=== PATIENT | male | born 1945 | race Caucasian/White ===

== ENCOUNTER 2016-05-22 21:12 | Inpatient (IN) | payer MEDICARE, BC ==
[2016-05-22] MEDS ORDERED: KETAMINE HCL INJ 500 MG/10 ML VIAL ONE (21:24)
[2016-05-22] MEDS ORDERED: NORMAL SALINE 1000 ML 1,000 ML IV ONE ×2 (21:36→22:28)
[2016-05-22] MEDS ORDERED: ONDANSETRON HCL INJ/PF 4 MG/2 ML SDV IV ONE (21:37)
[2016-05-22 21:42] LABS: HEMATOCRIT 40.1 % (37.9-51.0); HEMOGLOBIN 13.3 g/dL (13.5-17.0); HGB HCT DIFFERENCE -0.2; MEAN CORPUSCULAR HEMOGLOBIN 27.6 pg (27.0-33.4); MEAN CORPUSCULAR HGB CONC 33.2 g/dL (32.0-36.0); MEAN CORPUSCULAR VOLUME 83 fl (80-97); RED BLOOD COUNT 4.82 10^6/uL (4.35-5.55); RED CELL DISTRIBUTION WIDTH 14.9 % (11.5-14.0)
--- NOTE | 2016-05-22 21:42 | ER Document Report ---
ED General - General Stated Complaint: UNCONSCIOUS Mode of Arrival: Medic Information source: Emergency Med Personnel Cannot obtain history due to: Unstable vital signs, Altered mental status Notes: Patient presents in severe respiratory distress, obtunded, normally responsive. He was found in a pool of vomitus supine in his bed just prior to arrival. No history can be obtained from the patient but EMS reports that the patient was last seen normal 2 hours prior to being found by his family. He does have history of multiple myeloma and is actively on chemotherapy. History is otherwise limited secondary to critical nature of this patient at time of arrival. TRAVEL OUTSIDE OF THE [place] IN LAST 30 DAYS: No - Related Data Allergies/Adverse Reactions: ciprofloxacin [From Cipro] Allergy (Severe, Verified 12/16/14 10:53) Urticaria levofloxacin [From Levaquin] Allergy (Severe, Verified 12/16/14 10:53) Hives Penicillins Allergy (Intermediate, Verified 12/16/14 10:46) Urticaria Home Medications: Current Home Medications Budesonide/Formoterol Fumarate [Symbicort HFA 160-4.5 mcg Inhaler 6 gm] 1 inh IN BID 05/23/16 [History] Dextroamphetamine/Amphetamine [Adderall 10 mg Tablet] 1 tab PO DAILY 05/23/16 [ History] Morphine Sulfate [Morphine Sulfate] 1 tab PO Q4 PRN 05/23/16 [History] Tamsulosin HCl [Flomax] 2 tab PO QHS 05/23/16 [History] Tiotropium [place] [Spiriva Handihaler 18 mcg/dose (30 Dose)] 1 inh IN DAILY 12/29 [History] Past Medical History - General Information source: Emergency Med Personnel Cannot obtain history due to: Unstable vital signs, Altered mental status - Social History Smoking Status: Former Smoker Frequency of alcohol use: None Drug Abuse: None Lives with: Family Family History: Reviewed & Not Pertinent - Past Medical History Cardiac Medical History: Reports: Hx Hypercholesterolemia Denies: Hx Coronary Artery Disease, Hx Heart Attack, Hx Hypertension Pulmonary Medical History: Reports: Hx Bronchitis, Hx COPD Denies: Hx Asthma, Hx Pneumonia Neurological Medical History: Denies: Hx Cerebrovascular Accident, Hx Seizures Malignancy Medical History: Reports Hx Bone Cancer - multiple myeloma GI Medical History: Denies: Hx Hepatitis, Hx Hiatal Hernia, Hx Ulcer Musculoskeltal Medical History: Denies Hx Arthritis Infectious Medical History: Denies: Hx Hepatitis Past Surgical History: Denies: Hx Open Heart Surgery, Hx Pacemaker - Immunizations Hx Diphtheria, Pertussis, Tetanus Vaccination: Yes Hx Pneumococcal Vaccination: 04/14/14 Review of Systems - Review of Systems -: Yes ROS unobtainable due to patient's medical condition Physical Exam - Vital signs Vitals: Temp Resp BP 102.7 F H 41 H 100/62 05/22/16 21:14 05/22/16 21:14 05/22/16 21:14 Interpretation: Tachycardic, Tachypneic, Febrile Notes: PHYSICAL EXAMINATION: GENERAL: Critically ill in appearance, in severe respiratory distress HEAD: Atraumatic, normocephalic. EYES: Pupils equal round and reactive to light, extraocular movements intact, sclera anicteric, conjunctiva are normal. ENT: nares patent, oropharynx clear without exudates. Severely dry mucous membranes. NECK: supple without lymphadenopathy LUNGS: Severe respiratory distress, poor air movement bilaterally. Tachypneic into the mid to upper 40s HEART: Irregular tachycardia without murmurs ABDOMEN: Soft, nontender, normoactive bowel sounds. No guarding, no rebound. No masses appreciated. EXTREMITIES: Normal range of motion, no pitting or edema. No cyanosis. NEUROLOGICAL: Face symmetric. Tongue protrudes midline. Extraocular motions intact. Pupils initially pinpoint, minimally reactive bilaterally. Normal speech. 5 out of 5 strength in both the distal and proximal upper and lower extremities bilaterally. Sensation is grossly intact throughout. PSYCH: Anxious, confused SKIN: Warm, Dry, normal turgor, no rashes or lesions noted. Course - Re-evaluation Re-evalutation: 05/22/16 21:39 Patient arrives in severe respiratory distress, altered, minimally responsive. Tachycardic, hypotensive, hypoxemic on a nonrebreather. Initial clinical assessment shows a obtunded patient with pinpoint pupils, not responding to commands in any extremity. 0.2 mg of Narcan was administered 2 and patient did then become much more responsive, awake, alert, following commands in all extremities. Patient remained in respiratory distress however with severe tachypnea and tachycardia. He was placed on BiPAP and given low-dose IV ketamine to assist with ventilation on the BiPAP. This did improve his relaxation work of breathing. I remained at the bedside for 20 minutes, continuously monitoring patient's breathing and watch a gradual improvement of his work of breathing, tachypnea, and oxygen saturations on the BiPAP. We were able to down titrate from initial FiO2 of 100% to 60% and maintaining oxygen saturations in the upper 90s. Patient does continue to remain tachycardic and mildly tachypneic but overall much improved from time of arrival. IV fluids are being administered. A full panel of labs has been drawn. A stat chest x- ray was obtained and did not demonstrate any evidence of significant pulmonary edema, pneumothorax or widened mediastinum. However, there is either an aspiration or possible pneumonia in the left lower lobe An EKG shows frequent PVCs but no ST elevations or depressions. Patient is critically ill at this time will require frequent reassessments. 05/22/16 21:45 Patient's heart rate is down trending at this point in the low 130s upper 120s. Work of breathing is much improved although patient remains tachypneic with respirations in upper 30s. Satting 98% on 50% FiO2. He does have a temperature to 102.3 which suggests that the possible infiltrate is a pneumonia in origin. Cultures have been drawn. Lactate has been sent. He will be empirically started on IV cefepime at this time 05/22/16 21:54 Trialed a small dose of IV fentanyl 50 g to see if this also allowed the patient to breathe more comfortably no response. He continues to be tachypneic into the 30s. However, his overall appearance, blood pressure, and oxygen saturation are much improved time of arrival. Venous blood gas is unremarkable. Lactate is normal at 1.5. Other labs are pending. Awaiting radiology read of chest x-ray. This point, I will continue to observe the patient for an additional 10-15 minutes to see if his work of breathing improves on BiPAP. If he remains in distress, will proceed with intubation. 05/22/16 22:30 I have updated the family and have brought him to the bedside. Patient's work of breathing much improved at this time respiratory rate in the mid 20s to low 30s. His FiO2 did require increased to 60% as the trial on 40% did result in some mild hypoxemia into the upper 80s. He is maintaining oxygen saturation between 93 and 94% on 60% FiO2. An additional dose of 15 mg of ketamine has been administered due to ongoing discomfort with the BiPAP mask. Lotrisone returned showing a leukocytosis, normal troponin, no significant electrolytes derangements. Chest x-ray by radiology read as no acute findings. Due to patient's fever, active chemotherapy, vancomycin has been added to his antibiotic regimen. 05/22/16 23:[address] scan without BiPAP on and did well for that short period of time but upon returning to the trauma bay was having ongoing increased work of breathing, his oxygen saturations began to trend downward, but he refused BiPAP placement. After a prolonged period of conversation with his and the patient the bedside he was agreeable to replacement of the BiPAP with a dose of IV morphine to help control his pain. Awaiting CT of the head. Will plan for admission at this time 05/23/16 00:11 Patient is clinically improved on BiPAP, vitals trending in the correct direction was heart rate coming down, respiratory rate 21 at this time. Saturating 97% on 60% FiO2. Mild hypotension with 90s on 60s. CT head unremarkable. The hospitalist has been contacted for admission and I'm awaiting a call back [phone]- patient's tachycardia has now completely resolved, his breathing has normalized. Clinically appears much improved. Still awaiting the hospitalist to contact me back for admission [phone]-continue to await the hospitalist to return my page for admission. Patient continues to be clinically improved at this time vitals have stabilized with exception of mild hypotension 05/23/16 03:44 I have discussed this case with the oncologist online content developer Dr. Alonso who is in agreement with the management plan at this point. Patient has now been removed off BiPAP given significant improved work of breathing. He has been transitioned to nasal cannula at this time. 05/23/16 04:27 I discussed this case with the hospitalist who is accepted for admission at this time. Patient remains much improved clinically, saturating 92% on 6 L by nasal cannula, no longer tachypneic respiratory rate is 24. Heart rate is now in upper 90s. Blood pressures has remained stable in the upper 80s to low 90s systolic - Vital Signs Vital signs: Temp Pulse Resp BP Pulse Ox 99.5 F 28 H 120/70 95 05/23/16 02:05 05/23/16 01:00 05/22/16 22:46 05/23/16 01:00 - Laboratory Result Diagrams: 05/22/16 21:18 05/22/16 21:18 Laboratory results interpreted by me: 05/22/16 05/22/16 21:18 21:18 WBC 13.0 H Hgb 13.3 L RDW 14.9 H Plt Count 118 L Seg Neuts % (Manual) 80 H Lymphocytes % (Manual) 7 L Abs Neuts (Manual) 11.1 H Potassium 3.2 L Creatinine 1.45 H Est GFR ( Amer) 58 L Est GFR (Non-Af Amer) 48 L Glucose 129 H - Diagnostic Test Radiology reviewed: Image reviewed, Reports reviewed Radiology results interpreted by me: 05/22/16 21:40 Chest x-ray: Mild pulmonary edema versus possible aspiration of the left lower lobe - EKG Interpretation by Me Additional EKG results interpreted by me: 05/23/16 03:35 Sinus tachycardia rate 152. No ST elevations or depressions. PVCs. QTC 428. Critical Care Note - Critical Care Note Total time excluding time spent on procedures (mins): 160 Comments: Critical care time spent obtaining history from patient or surrogate, discussions with consultants, development of treatment plan with patient or surrogate, evaluation of patient's response to treatment, examination of patient , ordering and performing treatments and interventions, ordering and review of laboratory studies, re-evaluation of patient's condition, ordering and review of radiographic studies and review of old charts Discharge - Discharge Clinical Impression: Respiratory distress Sepsis Qualifiers: Sepsis type: sepsis due to unspecified organism Qualified Code(s): A41.9 - Sepsis, unspecified organism Condition: Fair Disposition: ADMITTED INPATIENT Admitting Provider: [facility] Unit Admitted: ICU
[2016-05-22 21:45] LABS: VENOUS BLOOD HCO3 21.7 mmol/L (20-32); VENOUS BLOOD PCO2 42.2 mmHg (35-63); VENOUS BLOOD PH 7.33 (7.30-7.42)
[2016-05-22] MEDS ORDERED: CEFEPIME 2 GM/D5W RTU 50 ML IV ONE (21:46)
[2016-05-22] MEDS ORDERED: FENTANYL CITRATE INJ/PF 100 MCG/2 ML AMPUL ONE (21:51)
[2016-05-22 21:53] LABS: ALANINE AMINOTRANSFERASE 21 U/L (21-72); ALBUMIN 4.1 g/dL (3.5-5.0); ALKALINE PHOSPHATASE 66 U/L (38-126); ANION GAP 13 (5-19); ASPARTATE AMINO TRANSFERASE 22 U/L (17-59); BILIRUBIN,TOTAL 0.8 mg/dL (0.2-1.3); BLOOD UREA NITROGEN 16 mg/dL (7-20); CARBON DIOXIDE 23 mmol/L (22-30); CHLORIDE 105 mmol/L (98-107); CREATININE RESULT 1.45 mg/dL (0.52-1.25); GLUCOSE 129 mg/dL (75-110); POTASSIUM 3.2 mmol/L (3.6-5.0); SODIUM 140.8 mmol/L (137-145); TOTAL PROTEIN 6.7 g/dL (6.3-8.2)
[2016-05-22 21:57] LABS: BAND NEUTROPHILS % (MANUAL) 5 % (3-5); BASOPHILS % (MANUAL) 0 % (0-2); EOSINOPHILS % (MANUAL) 0 % (0-6); LYMPHOCYTES % (MANUAL) 7 % (13-45); TOTAL CELLS COUNTED 100
[2016-05-22 21:59] LABS: ANISOCYTOSIS SLIGHT; TOXIC GRANULATION SLIGHT
[2016-05-22 22:12] LABS: TROPONIN I < 0.012 ng/mL
[2016-05-22] MEDS ORDERED: VANCOMYCIN HCL INJ 1000 MG VIAL IV ONE (22:29)
[2016-05-22] MEDS ORDERED: CEFEPIME HCL 2 GM in DEXTROSE 5%-WATER 50 ML IV ONE (22:30)
[2016-05-22] MEDS ORDERED: MORPHINE SULFATE 10 MG/ML INJ IV PRN (23:27)
[2016-05-22] MEDS ORDERED: KETOROLAC TROMETHAMINE INJ/PF 30 MG/1 ML SDV IV ONE (23:51)
[2016-05-22] MEDS ORDERED: ACETAMINOPHEN 325 MG TABLET PO ONE (23:52)
[2016-05-22] MEDS ORDERED: ACETAMINOPHEN 325 MG TABLET ONE (23:54)
[2016-05-23 01:28] LABS: APPEARANCE,URINE CLEAR; BILIRUBIN,URINE NEGATIVE (NEGATIVE); GLUCOSE, URINE NEGATIVE (NEGATIVE); KETONES,URINE NEGATIVE (NEGATIVE); LEUKOCYTE ESTERASE,URINE NEGATIVE (NEGATIVE); NITRITE,URINE NEGATIVE (NEGATIVE); PROTEIN,URINE NEGATIVE (NEGATIVE); UROBILINOGEN,URINE NEGATIVE mg/dL (<2.0)
[2016-05-23] MEDS ORDERED: FENTANYL CITRATE INJ/PF 100 MCG/2 ML AMPUL ONE (03:40)
[2016-05-23] MEDS ORDERED: NALOXONE HCL INJ/PF 0.4 MG/1 ML SDV IV ONE (04:50)
[2016-05-23] MEDS ORDERED: KETAMINE HCL INJ 500 MG/10 ML VIAL IV ONE (04:50)
[2016-05-23] MEDS ORDERED: FENTANYL CITRATE INJ/PF 100 MCG/2 ML AMPUL IV ONE (04:50)
[2016-05-23] MEDS ORDERED: NORMAL SALINE 1000 ML 1,000 ML IV ONE (05:08)
[2016-05-23 06:01] LABS: ANION GAP 9 (5-19); BLOOD UREA NITROGEN 20 mg/dL (7-20); CALCIUM 7.4 mg/dL (8.4-10.2); CARBON DIOXIDE 20 mmol/L (22-30); CHLORIDE 110 mmol/L (98-107); CREATININE RESULT 1.47 mg/dL (0.52-1.25); GLUCOSE 130 mg/dL (75-110); POTASSIUM 3.4 mmol/L (3.6-5.0); SODIUM 139.4 mmol/L (137-145)
[2016-05-23] MEDS ORDERED: NOREPINEPHRINE BITARTRATE INJ/PF 4 MG/4 ML SDV IV ONE (06:16)
[2016-05-23 06:33] LABS: HEMATOCRIT 33.1 % (37.9-51.0); HGB HCT DIFFERENCE 0.5; MEAN CORPUSCULAR HEMOGLOBIN 28.1 pg (27.0-33.4); MEAN CORPUSCULAR HGB CONC 33.8 g/dL (32.0-36.0); MEAN CORPUSCULAR VOLUME 83 fl (80-97); RED BLOOD COUNT 3.99 10^6/uL (4.35-5.55); RED CELL DISTRIBUTION WIDTH 14.9 % (11.5-14.0); WHITE BLOOD COUNT 14.7 10^3/uL (4.0-10.5)
[2016-05-23 06:34] LABS: HEMOGLOBIN 11.2 g/dL (13.5-17.0)
[2016-05-23 06:37] LABS: BAND NEUTROPHILS % (MANUAL) 15 % (3-5); BASOPHILS % (MANUAL) 0 % (0-2); EOSINOPHILS % (MANUAL) 0 % (0-6); LYMPHOCYTES % (MANUAL) 10 % (13-45); TOTAL CELLS COUNTED 100
[2016-05-23 06:39] LABS: ANISOCYTOSIS SLIGHT; OVALOCYTES SLIGHT; TOXIC GRANULATION SLIGHT; TOXIC VACUOLATION PRESENT
[2016-05-23] MEDS ORDERED: NORMAL SALINE 1000 ML 1,000 ML IV PRN (07:34)
[2016-05-23] MEDS ORDERED: GUAIFENESIN SYRP 200 MG/10 ML UDC PO PRN (07:38)
[2016-05-23] MEDS ORDERED: ALBUTEROL SULFATE 0.083% NEB 2.5 MG/3 ML AMPUL NEB PRN (07:38)
[2016-05-23] MEDS ORDERED: PHARMACY COMMUNICATION ORDER MC NR (07:45)
[2016-05-23] MEDS ORDERED: CEFEPIME 2 GM/D5W RTU 50 ML IV SCH (07:45)
[2016-05-23] MEDS ORDERED: VANCOMYCIN HCL 0 MG in DEXTROSE 5%-WATER 250 ML IV NR (07:45)
[2016-05-23] MEDS ORDERED: POTASSI CL 20 MEQ/D5NS 1L 1,000 ML IV PRN (07:46)
--- NOTE | 2016-05-23 08:18 | EKG REPORT ---
SEVERITY:- ABNORMAL ECG - SUPRAVENTRICULAR TACHYCARDIA MULTIPLE PREMATURE COMPLEXES, SUPRAVEN LOW VOLTAGE IN FRONTAL LEADS BORDERLINE T ABNORMALITIES, ANTERIOR LEADS : Confirmed by: Oh Koo MD 23-May-2016 08:17:57
[2016-05-23] MEDS: POTASSI CL 20 MEQ/D5NS 1L 1,000 ML IV PRN ×3 (08:44→21:04)
[2016-05-23] MEDS: IPRATROPIUM/ALBUTEROL 0.5-2.5 MG/3 ML AMPUL NEB SCH ×3 (08:48→20:08)
[2016-05-23] MEDS ORDERED: POTASSI CL 20 MEQ/50 ML RIDER 20 MEQ/50 ML RTUPB IV ONE (09:00)
[2016-05-23] MEDS ORDERED: CEFEPIME 1 GM/D5W RTU 50 ML IV SCH (10:00)
[2016-05-23] MEDS ORDERED: DEXTROSE 5%-WATER 250 ML with NOREPINEPHRINE BITARTRATE 4 MG IV PRN ×2 (10:00)
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
[2016-05-23] MEDS: PREDNISONE 20 MG TABLET PO SCH (10:37)
[2016-05-23 13:08] LABS: PATH REVIEW PATHOLOGIST REVIEWED
--- NOTE | 2016-05-23 14:47 | PDOC PROGRESS REPORT ---
Subjective Progress Note for:: 05/23/16 Subjective:: Patient states that he is feeling "fine". He would like something to eat. Patient denies fever, chills, headache, new focal weakness, chest pain, shortness of breath, abdominal pain, nausea, vomiting, diarrhea, constipation. Physical Exam Vital Signs: Temp Pulse Resp BP Pulse Ox 99.5 F 97 23 H 87/58 L 99 05/23/16 02:05 05/23/16 13:10 05/23/16 13:10 05/23/16 09:01 05/23/16 13:10 GENERAL: No acute distress HEENT: Conjunctiva clear, nonicteric, moist mucous membranes, no JVD, midline trachea RESPIRATORY: Scattered bilateral rhonchi CARDIAC: Regular rate and rhythm, no murmurs/gallops/rubs ABDOMEN: Soft, nondistended, nontender, positive bowel sounds, no rebound, no guarding EXTREMETIES: No edema, cyanosis, clubbing NEUROLOGIC: Alert, oriented to person/place/time, CN's grossly intact, no focal deficits SKIN: No rash, wounds PSYCH: Normal mood, normal affect Results Impressions: Chest X-Ray 05/22/16 00:00 IMPRESSION: NO ACUTE RADIOGRAPHIC FINDING IN THE CHEST. Head CT 05/22/16 22:50 IMPRESSION: MILD CHRONIC CHANGES OF ATROPHY AND MICROVASCULAR ISCHEMIA. NO ACUTE PROCESS. Assessment & Plan - Diagnosis (1) Acute hypoxemic respiratory failure Is this a current diagnosis for this admission?: YesPlan: Likely secondary to COPD, CHF, pneumonia. Continue oxygen supplementation to maintain O2 sat greater than 93%. (2) Sepsis Qualifiers: Sepsis type: sepsis due to unspecified organism Qualified Code(s): A41.9 - Sepsis, unspecified organism Is this a current diagnosis for this admission?: YesPlan: Secondary to pneumonia. Treat pneumonia. Continue Levophed to maintain mean arterial pressure greater than 65. (3) Pneumonia Qualifiers: Pneumonia type: due to unspecified organism Laterality: left Lung location: unspecified part of lung Qualified Code(s): J18.9 - Pneumonia, unspecified organism Is this a current diagnosis for this admission?: YesPlan: Likely bacterial. High probability of gram-negative organism given antineoplastic treatment. Continue IV cefepime and IV vancomycin. (4) Acute kidney injury Is this a current diagnosis for this admission?: YesPlan: Treat infection. Treat shock. IV fluids. (5) COPD exacerbation Is this a current diagnosis for this admission?: YesPlan: Continue prednisone. Continue Symbicort, Spiriva, albuterol nebulizer treatments. (6) Hypokalemia Is this a current diagnosis for this admission?: YesPlan: Replace as needed. (7) Thrombocytopenia Is this a current diagnosis for this admission?: YesPlan: Likely secondary to sepsis. Avoid heparin. (8) Multiple myeloma Qualifiers: Multiple myeloma remission status: unspecified Qualified Code(s): C90.00 - Multiple myeloma not having achieved remission Is this a current diagnosis for this admission?: YesPlan: Followed by Dr. Cotton as an outpatient. Dr. Mensah consult. (9) On antineoplastic chemotherapy Is this a current diagnosis for this admission?: Yes (10) Diastolic CHF Qualifiers: Congestive heart failure chronicity: chronic Qualified Code(s): I50.32 - Chronic diastolic (congestive) heart failure Is this a current diagnosis for this admission?: YesPlan: Monitor closely with IV fluid resuscitation. Repeat chest x-ray in the morning. Patient is not on evidence based beta maxi as an outpatient and I will not start this now secondary to shock. (11) DVT prophylaxis Is this a current diagnosis for this admission?: YesPlan: Avoid heparin secondary to thrombocytopenia. Arixtra 2.5 g subcutaneous daily. - Time Critical Time spent with patient: 35 or more minutes Disposition: Patient was followed by Dr. Bland as an outpatient but is now being seen by Dr. Mcdowell which over the past couple outpatient visit.
[2016-05-23] MEDS: MORPHINE SULFATE IR 15 MG TABLET PO PRN (18:01)
[2016-05-23] MEDS: LANSOPRAZOLE 30 MG TAB.RAP.DR PO SCH (18:02)
[2016-05-23] MEDS: ACETAMINOPHEN 325 MG TABLET PO PRN (20:34)
[2016-05-23] MEDS: BUDESONIDE/FORMOTEROL 160-4.5 MCG 60 PUFF/6 GM MDI IH SCH (21:09)
[2016-05-23] MEDS: TAMSULOSIN HCL 0.4 MG CAP.SR.24H PO SCH (21:12)
[2016-05-23] MEDS ORDERED: CEFEPIME HCL 2 GM in DEXTROSE 5%-WATER 50 ML IV SCH (22:00)
[2016-05-23] MEDS ORDERED: PHARMACY COMMUNICATION ORDER MC SCH (22:45)
[2016-05-23] MEDS ORDERED: AZTREONAM INJ 1 GM VIAL IV SCH (22:45)
[2016-05-23] MEDS ORDERED: GENTAMICIN SULFATE 0 MG in DEXTROSE 5%-WATER 100 ML IV NR (22:45)
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
[2016-05-24] MEDS ORDERED: GENTAMICIN SULFATE INJ 80 MG/2 ML VIAL ONE (00:33)
[2016-05-24] MEDS ORDERED: AZTREONAM INJ 1 GM VIAL ONE ×2 (00:47→00:57)
[2016-05-24] MEDS ORDERED: AZTREONAM INJ 1 GM VIAL IV PRN (02:04)
[2016-05-24 04:23] LABS: ALANINE AMINOTRANSFERASE 30 U/L (21-72); ALBUMIN 2.6 g/dL (3.5-5.0); ALKALINE PHOSPHATASE 39 U/L (38-126); ANION GAP 9 (5-19); ASPARTATE AMINO TRANSFERASE 17 U/L (17-59); BILIRUBIN,TOTAL 0.5 mg/dL (0.2-1.3); BLOOD UREA NITROGEN 19 mg/dL (7-20); CALCIUM 7.4 mg/dL (8.4-10.2); CARBON DIOXIDE 18 mmol/L (22-30); CHLORIDE 114 mmol/L (98-107); CREATININE RESULT 1.13 mg/dL (0.52-1.25); GLUCOSE 180 mg/dL (75-110); MAGNESIUM 1.8 mg/dL (1.6-2.3); SODIUM 141.4 mmol/L (137-145); TOTAL PROTEIN 4.9 g/dL (6.3-8.2)
[2016-05-24 04:39] LABS: HEMATOCRIT 30.6 % (37.9-51.0); HEMOGLOBIN 10.1 g/dL (13.5-17.0); HGB HCT DIFFERENCE -0.3; MEAN CORPUSCULAR HEMOGLOBIN 27.7 pg (27.0-33.4); MEAN CORPUSCULAR HGB CONC 32.9 g/dL (32.0-36.0); MEAN CORPUSCULAR VOLUME 84 fl (80-97); RED BLOOD COUNT 3.63 10^6/uL (4.35-5.55); RED CELL DISTRIBUTION WIDTH 15.6 % (11.5-14.0); WHITE BLOOD COUNT 21.1 10^3/uL (4.0-10.5)
[2016-05-24 04:50] LABS: POTASSIUM 4.5 mmol/L (3.6-5.0)
[2016-05-24 04:59] LABS: BAND NEUTROPHILS % (MANUAL) 21 % (3-5); BASOPHILS % (MANUAL) 0 % (0-2); EOSINOPHILS % (MANUAL) 0 % (0-6); LYMPHOCYTES % (MANUAL) 4 % (13-45); TOTAL CELLS COUNTED 100
[2016-05-24 05:01] LABS: ANISOCYTOSIS SLIGHT; BURR CELLS SLIGHT; TOXIC GRANULATION SLIGHT; TOXIC VACUOLATION PRESENT
[2016-05-24] MEDS: LANSOPRAZOLE 30 MG TAB.RAP.DR PO SCH ×2 (05:57→18:01)
[2016-05-24] MEDS: POTASSI CL 20 MEQ/D5NS 1L 1,000 ML IV PRN ×2 (06:22→09:43)
[2016-05-24] MEDS: VANCOMYCIN HCL 1,250 MG in DEXTROSE 5%-WATER 250 ML IV SCH (06:28)
[2016-05-24] MEDS ORDERED: FONDAPARINUX SODIUM INJ 2.5 MG/0.5 ML DISP.SYRIN SUBCUT SCH (08:00)
[2016-05-24] MEDS ORDERED: AZTREONAM 1 GM in DEXTROSE 5%-WATER 50 ML IV ONE (08:30)
[2016-05-24] MEDS: IPRATROPIUM/ALBUTEROL 0.5-2.5 MG/3 ML AMPUL NEB SCH ×3 (09:27→20:01)
[2016-05-24] MEDS: ASPIRIN 325 MG TABLET PO SCH (09:41)
[2016-05-24] MEDS: PREDNISONE 20 MG TABLET PO SCH (09:42)
[2016-05-24] MEDS: ACETAMINOPHEN 325 MG TABLET PO PRN ×2 (09:43→18:02)
[2016-05-24] MEDS ORDERED: AZTREONAM 2 GM in DEXTROSE 5%-WATER 100 ML IV SCH (10:00)
[2016-05-24] MEDS ORDERED: ONDANSETRON HCL INJ/PF 4 MG/2 ML SDV IV PRN (10:07)
[2016-05-24] MEDS ORDERED: ONDANSETRON HCL INJ/PF 4 MG/2 ML SDV ONE (10:09)
[2016-05-24] MEDS: FENTANYL 100 MCG/HR PATCH.TD72 TD SCH (10:31)
[2016-05-24] MEDS: AZITHROMYCIN 500 MG in DEXTROSE 5%-WATER 250 ML IV SCH (11:40)
--- NOTE | 2016-05-24 11:55 | PDOC PROGRESS REPORT ---
Subjective Progress Note for:: 05/24/16 Subjective:: Patient has no new complaints. Patient denies fever, chills, headache, new focal weakness, chest pain, shortness of breath, abdominal pain, nausea, vomiting, diarrhea, constipation. Physical Exam Vital Signs: Temp Pulse Resp BP Pulse Ox 98.0 F 93 20 102/68 94 05/24/16 08:00 05/24/16 09:30 05/24/16 09:30 05/24/16 08:00 05/24/16 09:30 Intake & Output 05/23/16 05/24/16 05/25/16 06:59 06:59 06:59 Output Total 2900 Balance -2900 Weight 96.6 kg GENERAL: No acute distress HEENT: Conjunctiva clear, nonicteric, moist mucous membranes, no JVD, midline trachea RESPIRATORY: Clear to auscultation bilaterally, no wheezes, no rhonchi CARDIAC: Regular rate and rhythm, no murmurs/gallops/rubs ABDOMEN: Soft, nondistended, nontender, positive bowel sounds, no rebound, no guarding EXTREMETIES: No edema, cyanosis, clubbing NEUROLOGIC: Alert, oriented to person/place/time, CN's grossly intact, no focal deficits SKIN: No rash, wounds PSYCH: Normal mood, normal affect Results Laboratory Results: 05/24/16 03:28 05/24/16 03:28 05/24/16 05/24/16 03:28 03:28 WBC 21.1 H RBC 3.63 L Hgb 10.1 L Hct 30.6 L MCV 84 MCH 27.7 MCHC 32.9 RDW 15.6 H Plt Count 77 L Seg Neutrophils % Not Reportable Lymphocytes % Not Reportable Monocytes % Not Reportable Eosinophils % Not Reportable Basophils % Not Reportable Absolute Neutrophils Not Reportable Absolute Lymphocytes Not Reportable Absolute Monocytes Not Reportable Absolute Eosinophils Not Reportable Absolute Basophils Not Reportable Sodium 141.4 Potassium 4.5 D Chloride 114 H Carbon Dioxide 18 L Anion Gap 9 BUN 19 Creatinine 1.13 Est GFR ( Amer) > 60 Est GFR (Non-Af Amer) > 60 Glucose 180 H Calcium 7.4 L Magnesium 1.8 Total Bilirubin 0.5 AST 17 ALT 30 Alkaline Phosphatase 39 Total Protein 4.9 L Albumin 2.6 L Impressions: Head CT 05/22/16 22:50 IMPRESSION: MILD CHRONIC CHANGES OF ATROPHY AND MICROVASCULAR ISCHEMIA. NO ACUTE PROCESS. Chest X-Ray 05/24/16 07:00 IMPRESSION: No significant interval change. No acute changes. Other findings as noted above Assessment & Plan - Diagnosis (1) Acute hypoxemic respiratory failure Is this a current diagnosis for this admission?: YesPlan: Likely secondary to COPD, CHF, pneumonia. Continue oxygen supplementation to maintain O2 sat greater than 93%. (2) Sepsis Qualifiers: Sepsis type: sepsis due to unspecified organism Qualified Code(s): A41.9 - Sepsis, unspecified organism Is this a current diagnosis for this admission?: YesPlan: Secondary to pneumonia. Treat pneumonia. Blood pressure now stable off Levophed. (3) Pneumonia Qualifiers: Pneumonia type: due to unspecified organism Laterality: left Lung location: unspecified part of lung Qualified Code(s): J18.9 - Pneumonia, unspecified organism Is this a current diagnosis for this admission?: YesPlan: Likely bacterial. High probability of gram-negative organism given antineoplastic treatment. Secondary to penicillin allergy cefepime was discontinued. Patient is on IV aztreonam, IV vancomycin, IV azithromycin. Blood cultures and sputum culture showing no growth 24 hours. (4) Acute kidney injury Is this a current diagnosis for this admission?: YesPlan: Kidney function much improved. (5) COPD exacerbation Is this a current diagnosis for this admission?: YesPlan: Breath sounds are clear today. Decrease prednisone to 40 mg daily. Continue Symbicort, Spiriva, albuterol nebulizer treatments. (6) Hypokalemia Is this a current diagnosis for this admission?: YesPlan: Corrected. (7) Thrombocytopenia Is this a current diagnosis for this admission?: YesPlan: Likely secondary to sepsis. Avoid heparin. (8) Multiple myeloma Qualifiers: Multiple myeloma remission status: unspecified Qualified Code(s): C90.00 - Multiple myeloma not having achieved remission Is this a current diagnosis for this admission?: YesPlan: Dr. Cotton consulted. (9) On antineoplastic chemotherapy Is this a current diagnosis for this admission?: Yes (10) Diastolic CHF Qualifiers: Congestive heart failure chronicity: chronic Qualified Code(s): I50.32 - Chronic diastolic (congestive) heart failure Is this a current diagnosis for this admission?: YesPlan: Monitor closely with IV fluid resuscitation. Clinically compensated at this time. Patient is not on evidence based beta maxi as an outpatient and I will not start this now secondary to shock. (11) DVT prophylaxis Is this a current diagnosis for this admission?: YesPlan: Avoid heparin secondary to thrombocytopenia. Discontinued Arixtra secondary to worsening thrombocytopenia. Place SCDs. - Time Time Spent with patient: 35 or more minutes
[2016-05-24] MEDS: BUDESONIDE/FORMOTEROL 160-4.5 MCG 60 PUFF/6 GM MDI IH SCH ×2 (12:33→22:29)
[2016-05-24] MEDS: TIOTROPIUM BROMIDE DPI 5 CAP/KIT (18 MCG/CAP) IH SCH (12:33)
[2016-05-24] MEDS: AZTREONAM 1 GM in DEXTROSE 5%-WATER 50 ML IV SCH ×2 (14:57→22:27)
[2016-05-24] MEDS ORDERED: NORMAL SALINE 10 ML SDV (AFTER EACH USE) IV PRN (15:11)
--- NOTE | 2016-05-24 17:09 | PDOC PROGRESS REPORT ---
Subjective Progress Note for:: 05/24/16 Subjective:: States that he's not feeling as well although can't be specific. Not much appetite. Physical Exam Vital Signs: Temp Pulse Resp BP Pulse Ox 98.7 F 91 17 86/57 L 96 05/24/16 16:47 05/24/16 16:47 05/24/16 16:47 05/24/16 16:47 05/24/16 16:47 Intake & Output 05/23/16 05/24/16 05/25/16 06:59 06:59 06:59 Intake Total 250 Output Total 2900 640 Balance -2900 -390 Weight 96.6 kg General appearance: PRESENT: no acute distress Head exam: PRESENT: normocephalic Eye exam: PRESENT: EOMI, PERRLA Ear exam: PRESENT: normal external ear exam Mouth exam: PRESENT: tongue midline Teeth exam: PRESENT: edentulous, other - with dentures Respiratory exam: PRESENT: decreased breath sounds - at the bases, unlabored Cardiovascular exam: PRESENT: RRR GI/Abdominal exam: PRESENT: normal bowel sounds, soft Extremities exam: PRESENT: other - slight edema in the left hand but none in the lower extremities Neurological exam: PRESENT: awake, oriented to person, oriented to place, oriented to time, oriented to situation, CN II-XII grossly intact Results Laboratory Results: 05/24/16 03:28 05/24/16 03:28 05/24/16 05/24/16 03:28 03:28 WBC 21.1 H RBC 3.63 L Hgb 10.1 L Hct 30.6 L MCV 84 MCH 27.7 MCHC 32.9 RDW 15.6 H Plt Count 77 L Seg Neutrophils % Not Reportable Lymphocytes % Not Reportable Monocytes % Not Reportable Eosinophils % Not Reportable Basophils % Not Reportable Absolute Neutrophils Not Reportable Absolute Lymphocytes Not Reportable Absolute Monocytes Not Reportable Absolute Eosinophils Not Reportable Absolute Basophils Not Reportable Sodium 141.4 Potassium 4.5 D Chloride 114 H Carbon Dioxide 18 L Anion Gap 9 BUN 19 Creatinine 1.13 Est GFR ( Amer) > 60 Est GFR (Non-Af Amer) > 60 Glucose 180 H Calcium 7.4 L Magnesium 1.8 Total Bilirubin 0.5 AST 17 ALT 30 Alkaline Phosphatase 39 Total Protein 4.9 L Albumin 2.6 L Impressions: Head CT 05/22/16 22:50 IMPRESSION: MILD CHRONIC CHANGES OF ATROPHY AND MICROVASCULAR ISCHEMIA. NO ACUTE PROCESS. Guidance Fluoroscopy 05/24/16 00:00 IMPRESSION: SUCCESSFUL PLACEMENT OF A 5 FR DUAL LUMEN 43 CM PICC IN THE left basilic VEIN. Interventional Vascular Procedure 05/24/16 00:00 IMPRESSION: SUCCESSFUL PLACEMENT OF A 5 FR DUAL LUMEN 43 CM PICC IN THE left basilic VEIN. PICC Line Insertion 05/24/16 00:00 IMPRESSION: SUCCESSFUL PLACEMENT OF A 5 FR DUAL LUMEN 43 CM PICC IN THE left basilic VEIN. Chest X-Ray 05/24/16 07:00 IMPRESSION: No significant interval change. No acute changes. Other findings as noted above Assessment & Plan - Diagnosis (1) COPD exacerbation Is this a current diagnosis for this admission?: YesPlan: Continue BSA for possible aspiration and pulmonary toilet, O2, nebs. (2) Multiple myeloma Qualifiers: Multiple myeloma remission status: unspecified Qualified Code(s): C90.00 - Multiple myeloma not having achieved remission Is this a current diagnosis for this admission?: Yes (3) On antineoplastic chemotherapy Is this a current diagnosis for this admission?: YesPlan: White counts are sufficient and in fact elevated likely secondary to his Prednisone (4) Thrombocytopenia Is this a current diagnosis for this admission?: YesPlan: Likely related to acute situation although possibility exist that from chemo - Time Time Spent with patient: 35 or more minutes Critical Time spent with patient: 25-34 minutes Medications reviewed and adjusted accordingly: Yes
[2016-05-24] MEDS: NORMAL SALINE 10 ML SDV (SCHEDULED) IV SCH (22:06)
[2016-05-24] MEDS: TAMSULOSIN HCL 0.4 MG CAP.SR.24H PO SCH (22:28)
[2016-05-25 05:43] LABS: HEMATOCRIT 30.2 % (37.9-51.0); HGB HCT DIFFERENCE -0.2; MEAN CORPUSCULAR HGB CONC 33.2 g/dL (32.0-36.0); MEAN CORPUSCULAR VOLUME 84 fl (80-97); RED BLOOD COUNT 3.58 10^6/uL (4.35-5.55); RED CELL DISTRIBUTION WIDTH 15.8 % (11.5-14.0); WHITE BLOOD COUNT 22.7 10^3/uL (4.0-10.5)
[2016-05-25 05:54] LABS: ALANINE AMINOTRANSFERASE 32 U/L (21-72); ALBUMIN 2.8 g/dL (3.5-5.0); ALKALINE PHOSPHATASE 54 U/L (38-126); ANION GAP 7 (5-19); ASPARTATE AMINO TRANSFERASE 20 U/L (17-59); BILIRUBIN,TOTAL 0.5 mg/dL (0.2-1.3); BLOOD UREA NITROGEN 20 mg/dL (7-20); CALCIUM 7.8 mg/dL (8.4-10.2); CARBON DIOXIDE 20 mmol/L (22-30); CHLORIDE 114 mmol/L (98-107); CREATININE RESULT 1.13 mg/dL (0.52-1.25); GLUCOSE 100 mg/dL (75-110); POTASSIUM 4.5 mmol/L (3.6-5.0); SODIUM 141.1 mmol/L (137-145); TOTAL PROTEIN 5.3 g/dL (6.3-8.2)
[2016-05-25 05:55] LABS: BASOPHILS % (MANUAL) 0 % (0-2); EOSINOPHILS % (MANUAL) 0 % (0-6); LYMPHOCYTES % (MANUAL) 3 % (13-45); TOTAL CELLS COUNTED 100
[2016-05-25 05:59] LABS: ANISOCYTOSIS SLIGHT; BURR CELLS SLIGHT; TOXIC GRANULATION SLIGHT
[2016-05-25] MEDS: AZTREONAM 1 GM in DEXTROSE 5%-WATER 50 ML IV SCH ×3 (06:06→21:07)
[2016-05-25] MEDS: VANCOMYCIN HCL 1,250 MG in DEXTROSE 5%-WATER 250 ML IV SCH (06:06)
[2016-05-25] MEDS: LANSOPRAZOLE 30 MG TAB.RAP.DR PO SCH ×2 (06:06→16:56)
[2016-05-25 07:02] LABS: FOLATE 9.32 ng/mL (>2.76)
[2016-05-25] MEDS: IPRATROPIUM/ALBUTEROL 0.5-2.5 MG/3 ML AMPUL NEB SCH ×3 (09:02→20:50)
--- NOTE | 2016-05-25 09:06 | PDOC PROGRESS REPORT ---
Subjective Progress Note for:: 05/25/16 Subjective:: Patient has no new complaints. Patient denies fever, chills, headache, new focal weakness, chest pain, shortness of breath, abdominal pain, nausea, vomiting, diarrhea, constipation. Physical Exam Vital Signs: Temp Pulse Resp BP Pulse Ox 97.9 F 73 14 111/71 94 05/25/16 05:56 05/24/16 20:01 05/25/16 06:00 05/25/16 05:37 05/25/16 06:00 Intake & Output 05/24/16 05/25/16 05/26/16 06:59 06:59 06:59 Intake Total 3425 Output Total 2900 2140 Balance -2900 1285 Weight 96.6 kg 94.2 kg GENERAL: No acute distress HEENT: Conjunctiva clear, nonicteric, moist mucous membranes, no JVD, midline trachea RESPIRATORY: Clear to auscultation bilaterally, no wheezes, no rhonchi CARDIAC: Regular rate and rhythm, no murmurs/gallops/rubs ABDOMEN: Soft, nondistended, nontender, positive bowel sounds, no rebound, no guarding EXTREMETIES: No edema, cyanosis, clubbing NEUROLOGIC: Alert, oriented to person/place/time, CN's grossly intact, no focal deficits SKIN: No rash, wounds PSYCH: Normal mood, normal affect Results Laboratory Results: 05/25/16 05:20 05/25/16 05:20 05/25/16 05/25/16 05:20 05:20 WBC 22.7 H RBC 3.58 L Hgb 10.0 L Hct 30.2 L MCV 84 MCH 28.0 MCHC 33.2 RDW 15.8 H Plt Count 97 L Seg Neutrophils % Not Reportable Lymphocytes % Not Reportable Monocytes % Not Reportable Eosinophils % Not Reportable Basophils % Not Reportable Absolute Neutrophils Not Reportable Absolute Lymphocytes Not Reportable Absolute Monocytes Not Reportable Absolute Eosinophils Not Reportable Absolute Basophils Not Reportable Retic Count (auto) 1.00 Absolute Retic 0.036 Sodium 141.1 Potassium 4.5 Chloride 114 H Carbon Dioxide 20 L Anion Gap 7 BUN 20 Creatinine 1.13 Est GFR ( Amer) > 60 Est GFR (Non-Af Amer) > 60 Glucose 100 Calcium 7.8 L Magnesium 2.0 Iron 15 L TIBC 217 L % Saturation 7 Ferritin 390.00 Total Bilirubin 0.5 AST 20 ALT 32 Alkaline Phosphatase 54 Total Protein 5.3 L Albumin 2.8 L Vitamin B12 848.0 Folate 9.32 Impressions: Head CT 05/22/16 22:50 IMPRESSION: MILD CHRONIC CHANGES OF ATROPHY AND MICROVASCULAR ISCHEMIA. NO ACUTE PROCESS. Guidance Fluoroscopy 05/24/16 00:00 IMPRESSION: SUCCESSFUL PLACEMENT OF A 5 FR DUAL LUMEN 43 CM PICC IN THE left basilic VEIN. Interventional Vascular Procedure 05/24/16 00:00 IMPRESSION: SUCCESSFUL PLACEMENT OF A 5 FR DUAL LUMEN 43 CM PICC IN THE left basilic VEIN. PICC Line Insertion 05/24/16 00:00 IMPRESSION: SUCCESSFUL PLACEMENT OF A 5 FR DUAL LUMEN 43 CM PICC IN THE left basilic VEIN. Chest X-Ray 05/24/16 07:00 IMPRESSION: No significant interval change. No acute changes. Other findings as noted above Assessment & Plan - Diagnosis (1) Acute hypoxemic respiratory failure Is this a current diagnosis for this admission?: YesPlan: Likely secondary to COPD, CHF, pneumonia. Continue oxygen supplementation to maintain O2 sat greater than 93%. (2) Sepsis Qualifiers: Sepsis type: sepsis due to unspecified organism Qualified Code(s): A41.9 - Sepsis, unspecified organism Is this a current diagnosis for this admission?: YesPlan: Secondary to pneumonia. Treat pneumonia. Blood pressure now stable off Levophed. Afebrile. Leukocytosis likely secondary to corticosteroids. (3) Pneumonia Qualifiers: Pneumonia type: due to unspecified organism Laterality: left Lung location: unspecified part of lung Qualified Code(s): J18.9 - Pneumonia, unspecified organism Is this a current diagnosis for this admission?: YesPlan: Likely bacterial. High probability of gram-negative organism given antineoplastic treatment. Continue IV aztreonam, IV vancomycin, IV azithromycin. Blood cultures and sputum culture showing no growth 48hours. (4) Acute kidney injury Is this a current diagnosis for this admission?: YesPlan: Resolved (5) COPD exacerbation Is this a current diagnosis for this admission?: YesPlan: Breath sounds are clear today. Discontinue prednisone. Continue Symbicort, Spiriva, albuterol nebulizer treatments. (6) Hypokalemia Is this a current diagnosis for this admission?: YesPlan: Resolved. (7) Thrombocytopenia Is this a current diagnosis for this admission?: YesPlan: Likely secondary to sepsis. Avoid heparin. (8) Multiple myeloma Qualifiers: Multiple myeloma remission status: unspecified Qualified Code(s): C90.00 - Multiple myeloma not having achieved remission Is this a current diagnosis for this admission?: YesPlan: Dr. Cotton consulted. (9) On antineoplastic chemotherapy Is this a current diagnosis for this admission?: Yes (10) Diastolic CHF Qualifiers: Congestive heart failure chronicity: chronic Qualified Code(s): I50.32 - Chronic diastolic (congestive) heart failure Is this a current diagnosis for this admission?: YesPlan: Clinically compensated at this time. Patient is not on evidence based beta maxi as an outpatient and I will not start this now secondary to shock. (11) DVT prophylaxis Is this a current diagnosis for this admission?: YesPlan: Avoid heparin secondary to thrombocytopenia. Discontinued Arixtra secondary to worsening thrombocytopenia. Place SCDs. Start ambulating patient. - Time Time Spent with patient: 35 or more minutes Anticipated discharge: Home Within: within 72 hours
[2016-05-25] MEDS: TIOTROPIUM BROMIDE DPI 5 CAP/KIT (18 MCG/CAP) IH SCH (09:49)
[2016-05-25] MEDS: ASPIRIN 325 MG TABLET PO SCH (09:49)
[2016-05-25] MEDS: AZITHROMYCIN 500 MG in DEXTROSE 5%-WATER 250 ML IV SCH (09:50)
[2016-05-25] MEDS: NORMAL SALINE 10 ML SDV (SCHEDULED) IV SCH ×2 (09:51→21:04)
[2016-05-25] MEDS: BUDESONIDE/FORMOTEROL 160-4.5 MCG 60 PUFF/6 GM MDI IH SCH ×2 (09:55→21:07)
[2016-05-25] MEDS ORDERED: PREDNISONE 20 MG TABLET PO SCH ×2 (10:00)
--- NOTE | 2016-05-25 10:15 | PDOC PROGRESS REPORT ---
Subjective Progress Note for:: 05/25/16 Subjective:: Doing much better today, better energy and off of pressors Physical Exam Vital Signs: Temp Pulse Resp BP Pulse Ox 97.9 F 74 21 H 115/74 92 05/25/16 05:56 05/25/16 08:00 05/25/16 09:00 05/25/16 08:37 05/25/16 09:00 Intake & Output 05/24/16 05/25/16 05/26/16 06:59 06:59 06:59 Intake Total 3425 250 Output Total 2900 2140 Balance -2900 1285 250 Weight 96.6 kg 94.2 kg General appearance: PRESENT: no acute distress Head exam: PRESENT: atraumatic, normocephalic Eye exam: PRESENT: EOMI, PERRLA Ear exam: PRESENT: normal external ear exam Mouth exam: PRESENT: moist, neck supple, tongue midline Respiratory exam: PRESENT: clear to auscultation lexie Cardiovascular exam: PRESENT: RRR GI/Abdominal exam: PRESENT: normal bowel sounds, soft Extremities exam: PRESENT: other - Edema resolved Neurological exam: PRESENT: alert, oriented to person, oriented to place, oriented to time, oriented to situation, CN II-XII grossly intact Psychiatric exam: PRESENT: appropriate affect Results Laboratory Results: 05/25/16 05:20 05/25/16 05:20 05/25/16 05/25/16 05:20 05:20 WBC 22.7 H RBC 3.58 L Hgb 10.0 L Hct 30.2 L MCV 84 MCH 28.0 MCHC 33.2 RDW 15.8 H Plt Count 97 L Seg Neutrophils % Not Reportable Lymphocytes % Not Reportable Monocytes % Not Reportable Eosinophils % Not Reportable Basophils % Not Reportable Absolute Neutrophils Not Reportable Absolute Lymphocytes Not Reportable Absolute Monocytes Not Reportable Absolute Eosinophils Not Reportable Absolute Basophils Not Reportable Retic Count (auto) 1.00 Absolute Retic 0.036 Sodium 141.1 Potassium 4.5 Chloride 114 H Carbon Dioxide 20 L Anion Gap 7 BUN 20 Creatinine 1.13 Est GFR ( Amer) > 60 Est GFR (Non-Af Amer) > 60 Glucose 100 Calcium 7.8 L Magnesium 2.0 Iron 15 L TIBC 217 L % Saturation 7 Ferritin 390.00 Total Bilirubin 0.5 AST 20 ALT 32 Alkaline Phosphatase 54 Total Protein 5.3 L Albumin 2.8 L Vitamin B12 848.0 Folate 9.32 Impressions: Head CT 05/22/16 22:50 IMPRESSION: MILD CHRONIC CHANGES OF ATROPHY AND MICROVASCULAR ISCHEMIA. NO ACUTE PROCESS. Guidance Fluoroscopy 05/24/16 00:00 IMPRESSION: SUCCESSFUL PLACEMENT OF A 5 FR DUAL LUMEN 43 CM PICC IN THE left basilic VEIN. Interventional Vascular Procedure 05/24/16 00:00 IMPRESSION: SUCCESSFUL PLACEMENT OF A 5 FR DUAL LUMEN 43 CM PICC IN THE left basilic VEIN. PICC Line Insertion 05/24/16 00:00 IMPRESSION: SUCCESSFUL PLACEMENT OF A 5 FR DUAL LUMEN 43 CM PICC IN THE left basilic VEIN. Chest X-Ray 05/24/16 07:00 IMPRESSION: No significant interval change. No acute changes. Other findings as noted above Assessment & Plan - Diagnosis (1) COPD exacerbation Is this a current diagnosis for this admission?: YesPlan: Improved on current regimen (2) Multiple myeloma Qualifiers: Multiple myeloma remission status: unspecified Qualified Code(s): C90.00 - Multiple myeloma not having achieved remission Is this a current diagnosis for this admission?: YesPlan: Rsume treatment once stable as an outpatient (3) On antineoplastic chemotherapy Is this a current diagnosis for this admission?: Yes (4) Thrombocytopenia Is this a current diagnosis for this admission?: YesPlan: Resolving with Leukocytosis secondary to steroids likely - Time Time Spent with patient: 15-24 minutes Critical Time spent with patient: 15-24 minutes Medications reviewed and adjusted accordingly: Yes Anticipated discharge: Home Within: within 72 hours - Inpatient Certification Medical Necessity: Need for IV Antibiotics
[2016-05-25] MEDS: TAMSULOSIN HCL 0.4 MG CAP.SR.24H PO SCH (21:05)
[2016-05-25] MEDS: ACETAMINOPHEN 325 MG TABLET PO PRN (22:25)
[2016-05-26] MEDS: AZTREONAM 1 GM in DEXTROSE 5%-WATER 50 ML IV SCH (05:20)
[2016-05-26] MEDS: VANCOMYCIN HCL 1,250 MG in DEXTROSE 5%-WATER 250 ML IV SCH (05:20)
[2016-05-26] MEDS: LANSOPRAZOLE 30 MG TAB.RAP.DR PO SCH ×2 (05:20→16:48)
[2016-05-26 05:36] LABS: ABSOLUTE LYMPHOCYTES (AUTO) 0.8 10^3/uL (0.5-4.7); ABSOLUTE MONOCYTES (AUTO) 0.4 10^3/uL (0.1-1.4); ABSOLUTE NEUT (AUTO) 8.1 10^3/uL (1.7-8.2); BASOPHILS % (AUTO) 0.3 % (0-2); EOSINOPHILS % (AUTO) 0.4 % (0-6); HEMATOCRIT 28.3 % (37.9-51.0); HEMOGLOBIN 9.7 g/dL (13.5-17.0); HGB HCT DIFFERENCE 0.8; LYMPHOCYTES % (AUTO) 8.8 % (13-45); MEAN CORPUSCULAR HEMOGLOBIN 28.6 pg (27.0-33.4); MEAN CORPUSCULAR HGB CONC 34.3 g/dL (32.0-36.0); MEAN CORPUSCULAR VOLUME 83 fl (80-97); MONOCYTES % (AUTO) 3.8 % (3-13); RED CELL DISTRIBUTION WIDTH 16.2 % (11.5-14.0); SEGMENTED NEUTROPHILS % (AUTO) 86.7 % (42-78); WHITE BLOOD COUNT 9.3 10^3/uL (4.0-10.5)
[2016-05-26 05:47] LABS: ANION GAP 8 (5-19); BLOOD UREA NITROGEN 17 mg/dL (7-20); CALCIUM 8.1 mg/dL (8.4-10.2); CARBON DIOXIDE 22 mmol/L (22-30); CHLORIDE 113 mmol/L (98-107); CREATININE RESULT 1.18 mg/dL (0.52-1.25); GLUCOSE 66 mg/dL (75-110)
[2016-05-26] MEDS: IPRATROPIUM/ALBUTEROL 0.5-2.5 MG/3 ML AMPUL NEB SCH ×3 (07:47→19:40)
[2016-05-26] MEDS: NYSTATIN 500000 UNIT/5 ML UDCUP PO SCH ×4 (10:02→22:13)
[2016-05-26] MEDS: ASPIRIN 81 MG TABLET, ENT COATED PO SCH (10:03)
[2016-05-26] MEDS: DOXYCYCLINE HYCLATE 100 MG TABLET PO SCH ×2 (10:03→22:13)
[2016-05-26] MEDS: NORMAL SALINE 10 ML SDV (SCHEDULED) IV SCH ×2 (10:07→22:14)
[2016-05-26] MEDS: BUDESONIDE/FORMOTEROL 160-4.5 MCG 60 PUFF/6 GM MDI IH SCH ×2 (10:17→22:13)
[2016-05-26] MEDS: TIOTROPIUM BROMIDE DPI 5 CAP/KIT (18 MCG/CAP) IH SCH (10:17)
[2016-05-26] MEDS: MORPHINE SULFATE IR 15 MG TABLET PO PRN ×2 (10:24→17:50)
--- NOTE | 2016-05-26 14:25 | PDOC PROGRESS REPORT ---
Subjective Progress Note for:: 05/26/16 Subjective:: Patient has no new complaints. He still feels generally weak. Patient denies fever, chills, headache, new focal weakness, chest pain, shortness of breath, abdominal pain, nausea, vomiting, diarrhea, constipation. Physical Exam Vital Signs: Temp Pulse Resp BP Pulse Ox 98.4 F 85 16 114/67 94 05/26/16 12:18 05/26/16 12:18 05/26/16 12:18 05/26/16 12:18 05/26/16 12:18 Intake & Output 05/25/16 05/26/16 05/27/16 06:59 06:59 06:59 Intake Total 3425 2520 Output Total 2140 1300 Balance 1285 1220 Weight 94.2 kg 95.4 kg GENERAL: No acute distress HEENT: Conjunctiva clear, nonicteric, aphthous ulcers noted in oropharynx with scattered white patches as well. Moist mucous membranes, no JVD, midline trachea RESPIRATORY: Clear to auscultation bilaterally, no wheezes, no rhonchi CARDIAC: Regular rate and rhythm, no murmurs/gallops/rubs ABDOMEN: Soft, nondistended, nontender, positive bowel sounds, no rebound, no guarding EXTREMETIES: No edema, cyanosis, clubbing NEUROLOGIC: Alert, oriented to person/place/time, CN's grossly intact, no focal deficits SKIN: No rash, wounds PSYCH: Normal mood, normal affect Results Laboratory Results: 05/26/16 04:45 05/26/16 04:45 05/26/16 05/26/16 04:45 04:45 WBC 9.3 RBC 3.40 L Hgb 9.7 L Hct 28.3 L MCV 83 MCH 28.6 MCHC 34.3 RDW 16.2 H Plt Count 94 L Seg Neutrophils % 86.7 H Lymphocytes % 8.8 L Monocytes % 3.8 Eosinophils % 0.4 Basophils % 0.3 Absolute Neutrophils 8.1 Absolute Lymphocytes 0.8 Absolute Monocytes 0.4 Absolute Eosinophils 0.0 Absolute Basophils 0.0 Sodium 143.0 Potassium 4.0 Chloride 113 H Carbon Dioxide 22 Anion Gap 8 BUN 17 Creatinine 1.18 Est GFR ( Amer) > 60 Est GFR (Non-Af Amer) > 60 Glucose 66 L Calcium 8.1 L Magnesium 2.0 05/23/16 20:45 Sputum Sputum Culture - Final C.albicans/C.dubliniensis Reduced Normal Yazmin 05/24/16 14:10 Sputum Gram Stain - Final 05/24/16 14:10 Sputum Sputum Culture - Final NORMAL YAZMIN Impressions: Head CT 05/22/16 22:50 IMPRESSION: MILD CHRONIC CHANGES OF ATROPHY AND MICROVASCULAR ISCHEMIA. NO ACUTE PROCESS. Guidance Fluoroscopy 05/24/16 00:00 IMPRESSION: SUCCESSFUL PLACEMENT OF A 5 FR DUAL LUMEN 43 CM PICC IN THE left basilic VEIN. Interventional Vascular Procedure 05/24/16 00:00 IMPRESSION: SUCCESSFUL PLACEMENT OF A 5 FR DUAL LUMEN 43 CM PICC IN THE left basilic VEIN. PICC Line Insertion 05/24/16 00:00 IMPRESSION: SUCCESSFUL PLACEMENT OF A 5 FR DUAL LUMEN 43 CM PICC IN THE left basilic VEIN. Chest X-Ray 05/24/16 07:00 IMPRESSION: No significant interval change. No acute changes. Other findings as noted above Assessment & Plan - Diagnosis (1) Acute hypoxemic respiratory failure Is this a current diagnosis for this admission?: YesPlan: Likely secondary to COPD, CHF, pneumonia. Continue oxygen supplementation to maintain O2 sat greater than 93%. (2) Sepsis Qualifiers: Sepsis type: sepsis due to unspecified organism Qualified Code(s): A41.9 - Sepsis, unspecified organism Is this a current diagnosis for this admission?: YesPlan: Secondary to pneumonia. Treat pneumonia. Blood pressure now stable off Levophed. Afebrile. (3) Pneumonia Qualifiers: Pneumonia type: due to unspecified organism Laterality: left Lung location: unspecified part of lung Qualified Code(s): J18.9 - Pneumonia, unspecified organism Is this a current diagnosis for this admission?: YesPlan: Likely bacterial. High probability of gram-negative organism given antineoplastic treatment. Cultures negative. Discontinue IV antibiotics. Doxycycline 100 mg by mouth twice a day. (4) Acute kidney injury Is this a current diagnosis for this admission?: YesPlan: Resolved. (5) COPD exacerbation Is this a current diagnosis for this admission?: YesPlan: Breath sounds are clear today. Continue Symbicort, Spiriva, albuterol nebulizer treatments. (6) Hypokalemia Is this a current diagnosis for this admission?: YesPlan: Resolved. (7) Thrombocytopenia Is this a current diagnosis for this admission?: YesPlan: Likely secondary to sepsis. Avoid heparin. (8) Multiple myeloma Qualifiers: Multiple myeloma remission status: unspecified Qualified Code(s): C90.00 - Multiple myeloma not having achieved remission Is this a current diagnosis for this admission?: YesPlan: Dr. Cotton consulted. (9) On antineoplastic chemotherapy Is this a current diagnosis for this admission?: Yes (10) Diastolic CHF Qualifiers: Congestive heart failure chronicity: chronic Qualified Code(s): I50.32 - Chronic diastolic (congestive) heart failure Is this a current diagnosis for this admission?: YesPlan: Clinically compensated at this time. Patient is not on evidence based beta maxi as an outpatient and I will not start this now secondary to hypotension. (11) Aphthous ulcer Is this a current diagnosis for this admission?: YesPlan: Likely secondary to acute illness and possibly recent treatment for multiple myeloma. (12) Oropharyngeal candidiasis Is this a current diagnosis for this admission?: YesPlan: Nystatin oral suspension. (13) DVT prophylaxis Is this a current diagnosis for this admission?: YesPlan: Avoid heparin secondary to thrombocytopenia. Discontinued Arixtra secondary to worsening thrombocytopenia. SCDs. - Time Time Spent with patient: 35 or more minutes
[2016-05-26] MEDS: TAMSULOSIN HCL 0.4 MG CAP.SR.24H PO SCH (22:13)
[2016-05-27] MEDS: LANSOPRAZOLE 30 MG TAB.RAP.DR PO SCH (06:03)
[2016-05-27 06:39] LABS: ABSOLUTE EOSINOPHILS # (AUTO) 0.1 10^3/uL (0.0-0.6); ABSOLUTE MONOCYTES (AUTO) 0.5 10^3/uL (0.1-1.4); ABSOLUTE NEUT (AUTO) 4.7 10^3/uL (1.7-8.2); BASOPHILS % (AUTO) 0.3 % (0-2); EOSINOPHILS % (AUTO) 1.5 % (0-6); HEMATOCRIT 29.3 % (37.9-51.0); HEMOGLOBIN 9.7 g/dL (13.5-17.0); HGB HCT DIFFERENCE -0.2; MEAN CORPUSCULAR HEMOGLOBIN 27.9 pg (27.0-33.4); MEAN CORPUSCULAR HGB CONC 33.3 g/dL (32.0-36.0); MEAN CORPUSCULAR VOLUME 84 fl (80-97); MONOCYTES % (AUTO) 7.3 % (3-13); RED BLOOD COUNT 3.49 10^6/uL (4.35-5.55); RED CELL DISTRIBUTION WIDTH 15.8 % (11.5-14.0); SEGMENTED NEUTROPHILS % (AUTO) 74.9 % (42-78); WHITE BLOOD COUNT 6.3 10^3/uL (4.0-10.5)
[2016-05-27 07:01] LABS: ANION GAP 6 (5-19); BLOOD UREA NITROGEN 16 mg/dL (7-20); CALCIUM 8.4 mg/dL (8.4-10.2); CARBON DIOXIDE 26 mmol/L (22-30); CHLORIDE 111 mmol/L (98-107); CREATININE RESULT 1.19 mg/dL (0.52-1.25); GLUCOSE 70 mg/dL (75-110); POTASSIUM 4.1 mmol/L (3.6-5.0); SODIUM 142.7 mmol/L (137-145)
[2016-05-27] MEDS: IPRATROPIUM/ALBUTEROL 0.5-2.5 MG/3 ML AMPUL NEB SCH (08:10)
[2016-05-27] MEDS: TIOTROPIUM BROMIDE DPI 5 CAP/KIT (18 MCG/CAP) IH SCH (10:04)
[2016-05-27] MEDS: ASPIRIN 81 MG TABLET, ENT COATED PO SCH (10:04)
[2016-05-27] MEDS: DOXYCYCLINE HYCLATE 100 MG TABLET PO SCH (10:04)
[2016-05-27] MEDS: FENTANYL 100 MCG/HR PATCH.TD72 TD SCH (10:05)
[2016-05-27] MEDS: NYSTATIN 500000 UNIT/5 ML UDCUP PO SCH (10:05)
[2016-05-27] MEDS: BUDESONIDE/FORMOTEROL 160-4.5 MCG 60 PUFF/6 GM MDI IH SCH (10:06)
[2016-05-27] MEDS: NORMAL SALINE 10 ML SDV (SCHEDULED) IV SCH (10:07)
[2016-05-27 10:35] VITALS: BP 131/72
--- NOTE | 2016-05-27 14:48 | PDOC DISCHARGE SUMMARY ---
General - Admit/Disc Date/PCP Admission Date/Primary Care Provider: 05/23/16 07:38 Discharge Date: 05/27/16 - Discharge Diagnosis (1) Acute hypoxemic respiratory failure Is this a current diagnosis for this admission?: Yes (2) Sepsis Is this a current diagnosis for this admission?: Yes (3) Pneumonia Is this a current diagnosis for this admission?: Yes (4) Acute kidney injury Is this a current diagnosis for this admission?: Yes (5) COPD exacerbation Is this a current diagnosis for this admission?: Yes (6) Hypokalemia Is this a current diagnosis for this admission?: Yes (7) Thrombocytopenia Is this a current diagnosis for this admission?: Yes (8) Multiple myeloma Is this a current diagnosis for this admission?: Yes (9) On antineoplastic chemotherapy Is this a current diagnosis for this admission?: Yes (10) Diastolic CHF Is this a current diagnosis for this admission?: Yes (11) Aphthous ulcer Is this a current diagnosis for this admission?: Yes (12) Oropharyngeal candidiasis Is this a current diagnosis for this admission?: Yes (13) DVT prophylaxis Is this a current diagnosis for this admission?: Yes - Additional Information Resuscitation Status: Full Code Discharge Diet: Cardiac Discharge Activity: Activity As Tolerated, Slowly Increase Activity Home Medications: Budesonide/Formoterol Fumarate [Symbicort HFA 160-4.5 mcg Inhaler 6 gm] 1 puff IH Q12 05/23/16 Dextroamphetamine/Amphetamine [Adderall 10 mg Tablet] 10 mg PO DAILY 05/23/16 Fentanyl [Duragesic 100 Mcg/Hr Transdermal Patch] 1 patch TD Q3D 05/23/16 Guaifenesin [Mucus ER] 600 mg PO Q12 05/23/16 Morphine Sulfate [Morphine Ir 15 mg Tablet] 15 mg PO Q4HP PRN 05/23/16 Ondansetron [Zofran Odt] 8 mg PO Q6HP PRN 05/23/16 Tamsulosin HCl [Flomax] 0.8 mg PO QHS 05/23/16 Tiotropium Wingo [Spiriva Handihaler 5 Cap/Kit (18 Mcg/Cap)] 1 cap IH DAILY Acetaminophen [Tylenol 325 mg Tablet] 650 mg PO Q4HP PRN tablet 05/27/16 Aspirin [Ecotrin 81 mg EC Tablet] 81 mg PO DAILY tabec 05/27/16 Doxycycline Hyclate [Vibramycin 100 mg Tablet] 100 mg PO Q12 #20 tablet Nystatin [Mycostatin 500,000 Unit/5 ml Susp Udcup] 500,000 unit PO QID #28 udc 05/27/16 History of Present Illness Patient complains of: Altered mental status, respiratory distress History of Present Illness: KRISTEN LARKIN is a 71 year old male with underlying nonhome O2 dependent COPD, prostatic hypertrophy chronic pain, and currently undergoing chemotherapy for multiple myeloma, who presents to the emergency room via EMS for evaluation of above complaints. Hospital Course Hospital Course: Patient was admitted for acute hypoxemic respiratory failure and septic shock secondary to pneumonia. In addition he had acute kidney injury, COPD exacerbation, hypokalemia, thrombocytopenia. With respect to acute hypoxemic respiratory failure he required supplemental oxygen during hospitalization. He has now been weaned off of oxygen and O2 sat is stable at 94% on room air. With regard to sepsis, patient was in septic shock secondary to pneumonia on presentation. He required Levophed for blood pressure support and first 2 days of hospitalization but was eventually weaned off Levophed. Blood pressure is stable off Levophed. Next Patient had pneumonia. This was likely bacterial. High probability of gram- negative organism given ongoing antineoplastic treatment. Patient was initially started on IV cefepime and IV vancomycin. Blood cultures and sputum cultures were negative. Patient was converted to oral doxycycline on 2016. He has remained stable on oral antibiotics. Patient had an acute kidney injury secondary to septic shock. The knee function has now normalized. Patient has history of multiple myeloma. He is followed by Dr. Sunshine Cotton of hematology as an outpatient and Dr. Cotton followed him while in the hospital as well. Physical Exam Vital Signs: Temp Pulse Resp BP Pulse Ox 98.5 F 89 16 131/72 H 94 05/27/16 10:33 05/27/16 10:33 05/27/16 10:33 05/27/16 10:33 05/27/16 10:33 Intake & Output 05/26/16 05/27/16 05/28/16 06:59 06:59 06:59 Intake Total 2520 1951 Output Total 1300 Balance 1220 1951 Weight 95.4 kg 95 kg GENERAL: No acute distress HEENT: Conjunctiva clear, nonicteric, aphthous ulcers noted in oropharynx with scattered white patches as well. Moist mucous membranes, no JVD, midline trachea RESPIRATORY: Clear to auscultation bilaterally, no wheezes, no rhonchi CARDIAC: Regular rate and rhythm, no murmurs/gallops/rubs ABDOMEN: Soft, nondistended, nontender, positive bowel sounds, no rebound, no guarding EXTREMETIES: No edema, cyanosis, clubbing NEUROLOGIC: Alert, oriented to person/place/time, CN's grossly intact, no focal deficits SKIN: No rash, wounds PSYCH: Normal mood, normal affect Results Laboratory Results: 05/27/16 06:15 05/27/16 06:15 05/25/16 05/27/16 05/27/16 05:20 06:15 06:15 WBC 6.3 RBC 3.49 L Hgb 9.7 L Hct 29.3 L MCV 84 MCH 27.9 MCHC 33.3 RDW 15.8 H Plt Count 111 L Seg Neutrophils % 74.9 Lymphocytes % 16.0 Monocytes % 7.3 Eosinophils % 1.5 Basophils % 0.3 Absolute Neutrophils 4.7 Absolute Lymphocytes 1.0 Absolute Monocytes 0.5 Absolute Eosinophils 0.1 Absolute Basophils 0.0 Sodium 142.7 Potassium 4.1 Chloride 111 H Carbon Dioxide 26 Anion Gap 6 BUN 16 Creatinine 1.19 Est GFR ( Amer) > 60 Est GFR (Non-Af Amer) > 60 Glucose 70 L Calcium 8.4 Transferrin 150 L 05/23/16 20:45 Sputum Gram Stain - Final 05/23/16 20:45 Sputum Sputum Culture - Final C.albicans/C.dubliniensis Reduced Normal Fantasma 05/24/16 14:10 Sputum Gram Stain - Final 05/24/16 14:10 Sputum Sputum Culture - Final NORMAL FANTASMA 05/24/16 14:10 Gram Stain - Final Sputum Sputum Culture - Final NORMAL FANTASMA 05/22/16 22:20 Blood Culture - Preliminary Blood NO GROWTH 4 DAYS 05/22/16 21:18 Blood Culture - Preliminary Blood NO GROWTH 4 DAYS Impressions: Head CT 05/22/16 22:50 IMPRESSION: MILD CHRONIC CHANGES OF ATROPHY AND MICROVASCULAR ISCHEMIA. NO ACUTE PROCESS. Guidance Fluoroscopy 05/24/16 00:00 IMPRESSION: SUCCESSFUL PLACEMENT OF A 5 FR DUAL LUMEN 43 CM PICC IN THE left basilic VEIN. Interventional Vascular Procedure 05/24/16 00:00 IMPRESSION: SUCCESSFUL PLACEMENT OF A 5 FR DUAL LUMEN 43 CM PICC IN THE left basilic VEIN. PICC Line Insertion 05/24/16 00:00 IMPRESSION: SUCCESSFUL PLACEMENT OF A 5 FR DUAL LUMEN 43 CM PICC IN THE left basilic VEIN. Chest X-Ray 05/24/16 07:00 IMPRESSION: No significant interval change. No acute changes. Other findings as noted above Qualifiers PATEINT BEING DISCHARGED WITH ANY OF THE FOLLOWING DIAGNOSIS?: No Plan Time Spent: Less than 30 Minutes
== END 2016-05-27 10:50 | disposition home or self-care (01) | DRG 871 ==
LOC: ER 21:12 → UNDOADMIN 05-23 04:39 → EH 05-23 04:39 → ICU 05-24 10:02 → 5 05-25 21:45
PROVIDERS: ADMIT Family Medicine; ATTEND Family Medicine
PROC: 5A09457 Assistance with Respiratory Ventilation, 24-96 Consecutive Hours, Continuous Positive Airway Pressure (ICD-10-PCS; 2016-05-22)
PROC: 3E0F73Z Introduction of Anti-inflammatory into Respiratory Tract, Via Natural or Artificial Opening (ICD-10-PCS; 2016-05-23)
PROC: 02HV33Z Insertion of Infusion Device into Superior Vena Cava, Percutaneous Approach (ICD-10-PCS; principal; 2016-05-24)
PROC: B518ZZA Fluoroscopy of Superior Vena Cava, Guidance (ICD-10-PCS; 2016-05-24)
PROC: B548ZZA Ultrasonography of Superior Vena Cava, Guidance (ICD-10-PCS; 2016-05-24)
DX: A41.9 Sepsis, unspecified organism (principal); J96.01 Acute respiratory failure with hypoxia; R65.21 Severe sepsis with septic shock; J18.9 Pneumonia, unspecified organism; C90.00 Multiple myeloma not having achieved remission; N17.9 Acute kidney failure, unspecified; J44.1 Chronic obstructive pulmonary disease with (acute) exacerbation; I50.32 Chronic diastolic (congestive) heart failure; B37.0 Candidal stomatitis; E87.6 Hypokalemia; D69.6 Thrombocytopenia, unspecified; I49.3 Ventricular premature depolarization; K12.0 Recurrent oral aphthae; N40.0 Benign prostatic hyperplasia without lower urinary tract symptoms; G89.29 Other chronic pain; D64.9 Anemia, unspecified; Z99.81 Dependence on supplemental oxygen; Z90.49 Acquired absence of other specified parts of digestive tract; Z87.891 Personal history of nicotine dependence; Z79.899 Other long term (current) drug therapy; Z88.0 Allergy status to penicillin; Z88.3 Allergy status to other anti-infective agents
CPT/HCPCS: 36415; 36569; 70450; 71010; 76937; 77001; 80048; 80053; 81001; 82607; 82728; 82746; 82803; 83540; 83550; 83605; 83735; 83880; 84466; 84484; 85025; 85045; 87040; 87070; 87205; 87804; 93005; 93010; 94640; 94660; 94799; 96361; 96365; 96375; 99291; 99292; J0456; J0692; J1642; J1652; J2270; J2310; J2405; J3010; J3370; J3480; J3490; J7030; J7060; J7512; J7620

== ENCOUNTER 2016-06-01 18:47 | Inpatient (IN) | payer MEDICARE, BC ==
[2016-06-01] MEDS ORDERED: ASPIRIN 81 MG TABLET, CHEWABLE PO ONE (18:54)
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
[2016-06-01] MEDS ORDERED: IPRATROPIUM/ALBUTEROL 0.5-2.5 MG/3 ML AMPUL NEB ONE (18:57)
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
[2016-06-01] MEDS: HYDROMORPHONE HCL INJ/PF 2 MG/ML AMPULE IV PRN (21:41)
[2016-06-01 21:54] LABS: ABSOLUTE LYMPHOCYTES (AUTO) 1.1 10^3/uL (0.5-4.7); ABSOLUTE MONOCYTES (AUTO) 0.6 10^3/uL (0.1-1.4); ABSOLUTE NEUT (AUTO) 9.7 10^3/uL (1.7-8.2); BASOPHILS % (AUTO) 0.3 % (0-2); EOSINOPHILS % (AUTO) 0.2 % (0-6); HEMATOCRIT 34.1 % (37.9-51.0); HEMOGLOBIN 11.1 g/dL (13.5-17.0); HGB HCT DIFFERENCE -0.8; LYMPHOCYTES % (AUTO) 9.2 % (13-45); MEAN CORPUSCULAR HEMOGLOBIN 27.1 pg (27.0-33.4); MEAN CORPUSCULAR HGB CONC 32.7 g/dL (32.0-36.0); MEAN CORPUSCULAR VOLUME 83 fl (80-97); MONOCYTES % (AUTO) 5.4 % (3-13); RED BLOOD COUNT 4.11 10^6/uL (4.35-5.55); RED CELL DISTRIBUTION WIDTH 15.6 % (11.5-14.0); SEGMENTED NEUTROPHILS % (AUTO) 84.9 % (42-78); WHITE BLOOD COUNT 11.4 10^3/uL (4.0-10.5)
[2016-06-01 22:05] LABS: ALANINE AMINOTRANSFERASE 39 U/L (21-72); ALKALINE PHOSPHATASE 67 U/L (38-126); ANION GAP 11 (5-19); ASPARTATE AMINO TRANSFERASE 27 U/L (17-59); BILIRUBIN,TOTAL 0.5 mg/dL (0.2-1.3); BLOOD UREA NITROGEN 12 mg/dL (7-20); CALCIUM 8.9 mg/dL (8.4-10.2); CARBON DIOXIDE 26 mmol/L (22-30); CHLORIDE 101 mmol/L (98-107); CREATININE RESULT 1.11 mg/dL (0.52-1.25); GLUCOSE 95 mg/dL (75-110); LIPASE 44.2 U/L (23-300); POTASSIUM 3.9 mmol/L (3.6-5.0); TOTAL PROTEIN 6.3 g/dL (6.3-8.2)
[2016-06-01] MEDS ORDERED: CEFEPIME 2 GM/D5W RTU 50 ML IV ONE (23:40)
[2016-06-01] MEDS ORDERED: VANCOMYCIN HCL INJ 1000 MG VIAL IV ONE (23:41)
[2016-06-02] MEDS ORDERED: ACETAMINOPHEN 325 MG TABLET PO PRN (00:22)
[2016-06-02] MEDS ORDERED: MORPHINE SULFATE IR 15 MG TABLET PO PRN (00:22)
[2016-06-02] MEDS ORDERED: ONDANSETRON HCL 8 MG TABLET PO PRN (00:22)
[2016-06-02] MEDS ORDERED: IPRATROPIUM/ALBUTEROL 0.5-2.5 MG/3 ML AMPUL NEB PRN (00:23)
[2016-06-02] MEDS ORDERED: VANCOMYCIN HCL 0 MG in DEXTROSE 5%-WATER 250 ML IV NR (00:30)
[2016-06-02] MEDS ORDERED: FLUTICASONE NASAL SPRAY 50 MCG/SPRY 120 SPRAY/16 GM NASL ONE (00:45)
[2016-06-02] MEDS ORDERED: DILTIAZEM HCL 30 MG TABLET PO ONE (00:45)
[2016-06-02] MEDS ORDERED: IPRATROPIUM/ALBUTEROL 0.5-2.5 MG/3 ML AMPUL NEB SCH (02:00)
[2016-06-02] MEDS: HYDROMORPHONE HCL INJ/PF 2 MG/ML AMPULE IV PRN (02:45)
[2016-06-02] MEDS ORDERED: FLUTICASONE NASAL SPRAY 50 MCG/SPRY 120 SPRAY/16 GM ONE (04:08)
[2016-06-02] MEDS: HEPARIN SOD (PORCINE) 5,000 UNIT/ML 1 ML SYRINGE SUBCUT SCH ×3 (05:12→21:41)
[2016-06-02] MEDS: DILTIAZEM HCL 30 MG TABLET PO SCH ×4 (05:12→23:10)
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
[2016-06-02] MEDS ORDERED: LACTULOSE SYRUP 20 GM/30 ML UDCUP PO SCH (06:45)
[2016-06-02] MEDS: ASPIRIN 81 MG TABLET, ENT COATED PO SCH (08:54)
[2016-06-02] MEDS: NORMAL SALINE 1000 ML 1,000 ML IV SCH ×2 (08:54→10:15)
[2016-06-02] MEDS: GUAIFENESIN 600 MG TABLET.SA PO SCH ×2 (08:55→21:41)
[2016-06-02] MEDS: FLUTICASONE NASAL SPRAY 50 MCG/SPRY 120 SPRAY/16 GM NASL SCH (08:55)
[2016-06-02] MEDS ORDERED: GUAIFENESIN 600 MG TABLET.SA PO SCH (10:00)
[2016-06-02] MEDS ORDERED: CEFEPIME 2 GM/D5W RTU 50 ML IV SCH (10:00)
[2016-06-02] MEDS ORDERED: TIOTROPIUM BROMIDE DPI 5 CAP/KIT (18 MCG/CAP) IH SCH (10:00)
[2016-06-02] MEDS: POLYETHYLENE GLYCOL 3350 POWDER 17 GM/1 PACKET PO SCH (10:52)
[2016-06-02] MEDS: BUDESONIDE/FORMOTEROL 160-4.5 MCG 60 PUFF/6 GM MDI IH SCH ×2 (10:52→21:41)
[2016-06-02] MEDS ORDERED: CEFEPIME HCL 2 GM in DEXTROSE 5%-WATER 50 ML IV ONE (11:00)
[2016-06-02] MEDS ORDERED: PSYLLIUM SEED-SF 5.85 GM PACKET PO ONE ×2 (11:00)
[2016-06-02] MEDS: FENTANYL 100 MCG/HR PATCH.TD72 TD SCH (11:12)
[2016-06-02] MEDS: IPRATROPIUM/ALBUTEROL 0.5-2.5 MG/3 ML AMPUL NEB SCH ×3 (12:46→19:51)
[2016-06-02] MEDS ORDERED: VANCOMYCIN HCL 1,000 MG in DEXTROSE 5%-WATER 250 ML IV SCH (13:00)
[2016-06-02] MEDS ORDERED: FENTANYL 50 MCG/HR PATCH.TD72 TOP PRN (13:48)
[2016-06-02] MEDS: NYSTATIN 500000 UNIT/5 ML UDCUP PO SCH ×4 (14:15→21:41)
[2016-06-02] MEDS ORDERED: KETOROLAC TROMETHAMINE INJ/PF 30 MG/1 ML SDV IV PRN (16:53)
--- NOTE | 2016-06-02 17:05 | PDOC PROGRESS REPORT ---
Subjective Progress Note for:: 06/02/16 Subjective:: Patient reports his pain is improved. Patient perceives not had a bowel movement for 4-5 days or more. Patient reports she's not coughing up any sputum. Patient reports chills. Patient denies fevers, nausea, vomiting, new onset weakness. Physical Exam Vital Signs: Temp Pulse Resp BP Pulse Ox 97.6 F 91 19 128/65 H 96 06/02/16 04:16 06/02/16 07:00 06/02/16 04:16 06/02/16 04:16 06/02/16 04:16 Intake & Output 06/01/16 06/02/16 06/03/16 06:59 06:59 06:59 Weight 99.8 kg Exam: General: Awake alert and oriented x3, no acute respiratory distress HEENT: AT/NC, PERRL, EOMI, oropharynx is moist, pink, no scleral icterus, no conjunctival injection Neck: No JVD, trachea midline Chest: Rhonchi left greater than right CV: Regular rate and rhythm, normal S1 and S2, no murmur, rub, or gallop Abdomen: Soft, nontender to palpation, nondistended, active bowel sounds; no rebound, rigidity, or guarding Extremities: No cyanosis, clubbing or edema Neuro: Cranial nerves II through XII are grossly intact without focal deficits; awake alert and oriented x3 Psych: Normal mood and affect Results Impressions: Chest X-Ray 06/01/16 18:55 IMPRESSION: Abnormal basilar density suggests pleural fluid. Differential is congestive failure versus pneumonia. Chest/Abdomen CTA 06/01/16 21:59 IMPRESSION: 1. No pulmonary embolus or aortic pathology. 2. Left pleural effusion with associated left lower lobe consolidation or volume loss. Suspicious for pneumonia with parapneumonic effusion. 3. Other chronic changes as described. Assessment & Plan - Diagnosis (1) Healthcare-associated pneumonia Is this a current diagnosis for this admission?: YesPlan: Patient currently on cefepime and vancomycin. Scheduled nebulized treatments. Incentive spirometry and flutter valve. Add Mucomyst for improved sputum production. Pending sputum culture. Suspect patient may have residual pneumonia from prior admission without resolution as opposed to healthcare associated pneumonia. (2) Pleural effusion, left Is this a current diagnosis for this admission?: YesPlan: Suspect that this is secondary to splinting from atelectasis patient does not appear to be volume overloaded. Will give incentive spirometry and follow clinically. Recommend thoracocentesis if no improvement. (3) Diastolic CHF Qualifiers: Congestive heart failure chronicity: chronic Qualified Code(s): I50.32 - Chronic diastolic (congestive) heart failure Is this a current diagnosis for this admission?: Yes (4) Multiple myeloma Qualifiers: Multiple myeloma remission status: unspecified Qualified Code(s): C90.00 - Multiple myeloma not having achieved remission Is this a current diagnosis for this admission?: Yes (5) Obesity (BMI 30.0-34.9) Is this a current diagnosis for this admission?: Yes - Time Time Spent with patient: 25-34 minutes Medications reviewed and adjusted accordingly: Yes
[2016-06-02] MEDS: VANCOMYCIN HCL 1,000 MG in DEXTROSE 5%-WATER 250 ML IV SCH (17:16)
[2016-06-02] MEDS ORDERED: (PENDING PHARMACY ID) (Hydromorphone Hcl [Dilaudid] 8 MG) PO SCH (18:00)
[2016-06-02] MEDS ORDERED: HYDROMORPHONE HCL 2 MG TABLET PO SCH (18:00)
[2016-06-02] MEDS: ACETYLCYSTEINE 20% SOLN 800 MG/4 ML VIAL.NEB NEB SCH (19:51)
[2016-06-02] MEDS: SENNOSIDES/DOCUSATE 8.6-50 MG 1 EACH TABLET PO SCH (21:41)
[2016-06-02] MEDS: TAMSULOSIN HCL 0.4 MG CAP.SR.24H PO SCH (21:41)
[2016-06-02] MEDS: CEFEPIME HCL 2 GM in DEXTROSE 5%-WATER 50 ML IV SCH (21:46)
[2016-06-03] MEDS: HEPARIN SOD (PORCINE) 5,000 UNIT/ML 1 ML SYRINGE SUBCUT SCH (05:26)
[2016-06-03] MEDS: VANCOMYCIN HCL 1,000 MG in DEXTROSE 5%-WATER 250 ML IV SCH ×2 (05:26→19:46)
[2016-06-03] MEDS: DILTIAZEM HCL 30 MG TABLET PO SCH ×3 (05:26→17:36)
[2016-06-03] MEDS ORDERED: HYDROMORPHONE HCL 2 MG TABLET PO PRN ×2 (07:20→18:30)
[2016-06-03] MEDS ORDERED: BISACODYL 5 MG TABEC PO PRN (07:31)
[2016-06-03] MEDS ORDERED: BISACODYL 5 MG TABEC PO ONE (08:00)
[2016-06-03] MEDS: IPRATROPIUM/ALBUTEROL 0.5-2.5 MG/3 ML AMPUL NEB SCH ×4 (08:55→21:02)
[2016-06-03] MEDS: ACETYLCYSTEINE 20% SOLN 800 MG/4 ML VIAL.NEB NEB SCH ×2 (08:55→21:02)
[2016-06-03] MEDS: CETIRIZINE 10 MG TABLET PO SCH (10:14)
[2016-06-03] MEDS: NYSTATIN 500000 UNIT/5 ML UDCUP PO SCH ×4 (10:14→22:03)
[2016-06-03] MEDS: GUAIFENESIN 600 MG TABLET.SA PO SCH ×2 (10:14→22:04)
[2016-06-03] MEDS: ASPIRIN 81 MG TABLET, ENT COATED PO SCH (10:15)
[2016-06-03] MEDS: PSYLLIUM SEED-SF 5.85 GM PACKET PO SCH ×2 (10:15)
[2016-06-03] MEDS: BUDESONIDE/FORMOTEROL 160-4.5 MCG 60 PUFF/6 GM MDI IH SCH ×2 (10:15→22:04)
[2016-06-03] MEDS: POLYETHYLENE GLYCOL 3350 POWDER 17 GM/1 PACKET PO SCH (10:15)
[2016-06-03] MEDS: FLUTICASONE NASAL SPRAY 50 MCG/SPRY 120 SPRAY/16 GM NASL SCH (10:16)
[2016-06-03] MEDS: CEFEPIME HCL 2 GM in DEXTROSE 5%-WATER 50 ML IV SCH ×2 (10:17→22:03)
[2016-06-03] MEDS ORDERED: KETOROLAC TROMETHAMINE INJ/PF 30 MG/1 ML SDV IV ONE (12:30)
[2016-06-03] MEDS ORDERED: DIPHENHYDRAMINE HCL 50 MG/ML VIAL IV ONE (12:30)
[2016-06-03 13:57] LABS: ABSOLUTE LYMPHOCYTES (AUTO) 1.1 10^3/uL (0.5-4.7); ABSOLUTE MONOCYTES (AUTO) 0.7 10^3/uL (0.1-1.4); ABSOLUTE NEUT (AUTO) 5.7 10^3/uL (1.7-8.2); BASOPHILS % (AUTO) 0.5 % (0-2); EOSINOPHILS % (AUTO) 0.6 % (0-6); HEMOGLOBIN 9.9 g/dL (13.5-17.0); HGB HCT DIFFERENCE -0.3; LYMPHOCYTES % (AUTO) 14.4 % (13-45); MEAN CORPUSCULAR HEMOGLOBIN 27.4 pg (27.0-33.4); MEAN CORPUSCULAR VOLUME 83 fl (80-97); MONOCYTES % (AUTO) 9.3 % (3-13); RED BLOOD COUNT 3.61 10^6/uL (4.35-5.55); RED CELL DISTRIBUTION WIDTH 15.8 % (11.5-14.0); SEGMENTED NEUTROPHILS % (AUTO) 75.2 % (42-78); WHITE BLOOD COUNT 7.6 10^3/uL (4.0-10.5)
[2016-06-03 14:16] LABS: ANION GAP 9 (5-19); BLOOD UREA NITROGEN 8 mg/dL (7-20); CALCIUM 8.7 mg/dL (8.4-10.2); CARBON DIOXIDE 26 mmol/L (22-30); CHLORIDE 104 mmol/L (98-107); CREATININE RESULT 0.96 mg/dL (0.52-1.25); GLUCOSE 118 mg/dL (75-110); SODIUM 138.9 mmol/L (137-145)
--- NOTE | 2016-06-03 22:00 | PDOC PROGRESS REPORT ---
Subjective Progress Note for:: 06/03/16 Subjective:: Patient reports he's feeling better. Discussed with patient and his daughter at bedside at great length patient's pain regimen. Patient admits to headache in his right occipital region to right posterior eye. He reports he's had headaches for the last 5 days. These are compared by nausea but no vomiting. He denies facial tenderness or sinus drainage. Patient denies chest pain, shortness of breath, abdominal pain, nausea, vomiting , fevers, chills, diarrhea, new onset weakness. Physical Exam Vital Signs: Temp Pulse Resp BP Pulse Ox 98.2 F 72 16 106/54 L 91 L 06/03/16 07:27 06/03/16 07:27 06/03/16 07:27 06/03/16 07:27 06/03/16 07:27 Intake & Output 06/02/16 06/03/16 06/04/16 06:59 06:59 06:59 Intake Total 4208 Output Total 200 Balance 4008 Weight 99.8 kg 91.8 kg Exam: General: Awake alert and oriented x3, no acute respiratory distress HEENT: AT/NC, PERRL, EOMI, oropharynx is moist, pink, no scleral icterus, no conjunctival injection Neck: No JVD, trachea midline Chest: Occasional Rhonchi left greater than right;diminished left base CV: Regular rate and rhythm, normal S1 and S2, no murmur, rub, or gallop Abdomen: Soft, nontender to palpation, nondistended, active bowel sounds; no rebound, rigidity, or guarding Extremities: No cyanosis, clubbing or edema Neuro: Cranial nerves II through XII are grossly intact without focal deficits; awake alert and oriented x3 Psych: Normal mood and affect Results Impressions: Chest X-Ray 06/01/16 18:55 IMPRESSION: Abnormal basilar density suggests pleural fluid. Differential is congestive failure versus pneumonia. Chest/Abdomen CTA 06/01/16 21:59 IMPRESSION: 1. No pulmonary embolus or aortic pathology. 2. Left pleural effusion with associated left lower lobe consolidation or volume loss. Suspicious for pneumonia with parapneumonic effusion. 3. Other chronic changes as described. Assessment & Plan - Diagnosis (1) Healthcare-associated pneumonia Is this a current diagnosis for this admission?: YesPlan: Patient currently on cefepime and vancomycin. Scheduled nebulized treatments. Incentive spirometry and flutter valve. Mucomyst for improved sputum production. Pending sputum culture. Suspect patient may have residual pneumonia from prior admission without resolution as opposed to healthcare associated pneumonia. (2) Pleural effusion, left Is this a current diagnosis for this admission?: YesPlan: Suspect that this is secondary to splinting from atelectasis patient does not appear to be volume overloaded. Continue incentive spirometry and plan for thoracocentesis in the morning. Given patient's compromised immune status secondary to multiple myeloma have concerns for developing empyema. (3) Diastolic CHF Qualifiers: Congestive heart failure chronicity: chronic Qualified Code(s): I50.32 - Chronic diastolic (congestive) heart failure Is this a current diagnosis for this admission?: YesPlan: Patient currently euvolemic (4) Multiple myeloma Qualifiers: Multiple myeloma remission status: unspecified Qualified Code(s): C90.00 - Multiple myeloma not having achieved remission Is this a current diagnosis for this admission?: Yes (5) Chronic prescription opiate use Is this a current diagnosis for this admission?: Yes (6) Acute hypoxemic respiratory failure Is this a current diagnosis for this admission?: Yes (7) DVT prophylaxis Is this a current diagnosis for this admission?: Yes (8) On antineoplastic chemotherapy Is this a current diagnosis for this admission?: Yes (9) Obesity (BMI 30.0-34.9) Is this a current diagnosis for this admission?: Yes - Time Time Spent with patient: 35 or more minutes Medications reviewed and adjusted accordingly: Yes
[2016-06-03] MEDS: SENNOSIDES/DOCUSATE 8.6-50 MG 1 EACH TABLET PO SCH (22:04)
[2016-06-03] MEDS: TAMSULOSIN HCL 0.4 MG CAP.SR.24H PO SCH (22:04)
[2016-06-03] MEDS: HYDROMORPHONE HCL 2 MG TABLET PO SCH (22:04)
[2016-06-04] MEDS: DILTIAZEM HCL 30 MG TABLET PO SCH ×5 (00:38→23:18)
[2016-06-04] MEDS ORDERED: CALCIUM CARBONATE 500 MG TAB.CHEW PO ONE ×2 (00:45→10:00)
[2016-06-04] MEDS: VANCOMYCIN HCL 1,000 MG in DEXTROSE 5%-WATER 250 ML IV SCH (05:48)
[2016-06-04 06:39] LABS: ABSOLUTE EOSINOPHILS # (AUTO) 0.1 10^3/uL (0.0-0.6); ABSOLUTE MONOCYTES (AUTO) 0.6 10^3/uL (0.1-1.4); ABSOLUTE NEUT (AUTO) 5.6 10^3/uL (1.7-8.2); BASOPHILS % (AUTO) 0.5 % (0-2); EOSINOPHILS % (AUTO) 1.2 % (0-6); HEMATOCRIT 28.7 % (37.9-51.0); HEMOGLOBIN 9.5 g/dL (13.5-17.0); HGB HCT DIFFERENCE -0.2; LYMPHOCYTES % (AUTO) 13.7 % (13-45); MEAN CORPUSCULAR HEMOGLOBIN 27.4 pg (27.0-33.4); MEAN CORPUSCULAR VOLUME 83 fl (80-97); MONOCYTES % (AUTO) 8.4 % (3-13); RED BLOOD COUNT 3.46 10^6/uL (4.35-5.55); SEGMENTED NEUTROPHILS % (AUTO) 76.2 % (42-78); WHITE BLOOD COUNT 7.3 10^3/uL (4.0-10.5)
[2016-06-04 06:42] LABS: PROTHROMBIN TIME 13.7 SEC (11.4-15.4)
[2016-06-04 07:04] LABS: ALBUMIN 3.1 g/dL (3.5-5.0); ANION GAP 7 (5-19); BLOOD UREA NITROGEN 8 mg/dL (7-20); CARBON DIOXIDE 26 mmol/L (22-30); CHLORIDE 107 mmol/L (98-107); CREATININE RESULT 0.97 mg/dL (0.52-1.25); GLUCOSE 98 mg/dL (75-110); LDH 359 U/L (313-618); POTASSIUM 4.5 mmol/L (3.6-5.0); SODIUM 140.4 mmol/L (137-145)
[2016-06-04] MEDS: ACETYLCYSTEINE 20% SOLN 800 MG/4 ML VIAL.NEB NEB SCH (08:01)
[2016-06-04] MEDS: IPRATROPIUM/ALBUTEROL 0.5-2.5 MG/3 ML AMPUL NEB SCH ×4 (08:01→20:11)
[2016-06-04] MEDS: FERROUS SULFATE 325 MG TABLET PO SCH (09:52)
[2016-06-04] MEDS: CALCIUM CARBONATE 500 MG TAB.CHEW PO SCH ×4 (09:52→22:56)
[2016-06-04] MEDS: ASPIRIN 81 MG TABLET, ENT COATED PO SCH (09:53)
[2016-06-04] MEDS: HYDROMORPHONE HCL 2 MG TABLET PO SCH ×2 (09:53→22:56)
[2016-06-04] MEDS: GUAIFENESIN 600 MG TABLET.SA PO SCH ×2 (09:54→22:55)
[2016-06-04] MEDS: PSYLLIUM SEED-SF 5.85 GM PACKET PO SCH ×2 (09:54)
[2016-06-04] MEDS: FENTANYL 100 MCG/HR PATCH.TD72 TD SCH (09:54)
[2016-06-04] MEDS: POLYETHYLENE GLYCOL 3350 POWDER 17 GM/1 PACKET PO SCH (09:54)
[2016-06-04] MEDS: NYSTATIN 500000 UNIT/5 ML UDCUP PO SCH ×4 (09:54→22:55)
[2016-06-04] MEDS: FLUTICASONE NASAL SPRAY 50 MCG/SPRY 120 SPRAY/16 GM NASL SCH (09:57)
[2016-06-04] MEDS: BUDESONIDE/FORMOTEROL 160-4.5 MCG 60 PUFF/6 GM MDI IH SCH ×2 (09:58→22:56)
[2016-06-04 10:08] LABS: FLUID APPEARANCE CLOUDY; FLUID RBC SIDE 1 720; FLUID TYPE PLEURAL
[2016-06-04 10:09] LABS: FLUID RBC AVERAGE 707.5; FLUID RBC DILUENT USED NONE USED; FLUID RBC DILUTION FACTOR 1; FLUID RBC SIDE 2 695; TOTAL RBC SQUARES COUNTED FLD 25
[2016-06-04] MEDS: CETIRIZINE 10 MG TABLET PO SCH (10:14)
[2016-06-04] MEDS: CEFEPIME HCL 2 GM in DEXTROSE 5%-WATER 50 ML IV SCH (12:17)
[2016-06-04] MEDS ORDERED: MAG HYDROX/AL HYDROX/SIMETH SUSP 30 ML UDCUP PO ONE (15:00)
[2016-06-04] MEDS ORDERED: HYDROMORPHONE HCL 2 MG TABLET PO PRN (17:17)
--- NOTE | 2016-06-04 17:27 | PDOC PROGRESS REPORT ---
Subjective Progress Note for:: 06/04/16 Subjective:: Patient's daughter states that patient was very sedated after receiving news scheduled dose of Dilaudid prescribed by Dr. Silva of pain management. Patient is also been having midsternal chest pain that is sharp in nature and occurs with swallowing. Patient incidentally had stomatitis when he was in the hospital last week that was thought to be secondary to physiologic stress as well as treatment for multiple myeloma. Patient denies fever, chills, headache, new focal weakness, chest pain, shortness of breath, abdominal pain, nausea, vomiting, diarrhea, constipation. Physical Exam Vital Signs: Temp Pulse Resp BP Pulse Ox 97.8 F 90 22 H 111/77 96 06/04/16 15:45 06/04/16 15:45 06/04/16 15:45 06/04/16 15:45 06/04/16 15:45 Intake & Output 06/03/16 06/04/16 06/05/16 06:59 06:59 06:59 Intake Total 4208 2090 900 Output Total 200 Balance 4008 2090 900 Weight 91.8 kg 91.8 kg GENERAL: No acute distress HEENT: Conjunctiva clear, nonicteric, moist mucous membranes, no JVD, midline trachea RESPIRATORY: Clear to auscultation bilaterally, no wheezes, no rhonchi CARDIAC: Regular rate and rhythm, no murmurs/gallops/rubs. No reproducible chest wall tenderness ABDOMEN: Soft, nondistended, nontender, positive bowel sounds, no rebound, no guarding EXTREMETIES: No edema, cyanosis, clubbing NEUROLOGIC: Alert, oriented to person/place/time, CN's grossly intact, no focal deficits SKIN: No rash, wounds PSYCH: Normal mood, normal affect Results Laboratory Results: 06/04/16 05:31 06/04/16 05:31 06/04/16 06/04/16 06/04/16 05:31 05:31 09:00 WBC 7.3 RBC 3.46 L Hgb 9.5 L Hct 28.7 L MCV 83 MCH 27.4 MCHC 33.0 RDW 16.0 H Plt Count 208 Seg Neutrophils % 76.2 Lymphocytes % 13.7 Monocytes % 8.4 Eosinophils % 1.2 Basophils % 0.5 Absolute Neutrophils 5.6 Absolute Lymphocytes 1.0 Absolute Monocytes 0.6 Absolute Eosinophils 0.1 Absolute Basophils 0.0 Sodium 140.4 Potassium 4.5 Chloride 107 Carbon Dioxide 26 Anion Gap 7 BUN 8 Creatinine 0.97 Est GFR ( Amer) > 60 Est GFR (Non-Af Amer) > 60 Glucose 98 Calcium 9.0 Albumin 3.1 L Fluid Type PLEURAL Fluid Source Fluid Color ASHLY Fluid Appearance CLOUDY Fluid Viscosity LIQUID Fluid WBC 5700 Fluid RBC 7075 Impressions: Chest/Abdomen CTA 06/01/16 21:59 IMPRESSION: 1. No pulmonary embolus or aortic pathology. 2. Left pleural effusion with associated left lower lobe consolidation or volume loss. Suspicious for pneumonia with parapneumonic effusion. 3. Other chronic changes as described. Head CT 06/03/16 00:00 IMPRESSION: No acute findings. Chronic lytic cranial lesions consistent with clinical history of multiple myeloma. Thoracentesis Ultrasound 06/04/16 00:00 IMPRESSION: SUCCESSFUL THORACENTESIS USING ULTRASOUND GUIDANCE. Chest X-Ray 06/04/16 11:30 IMPRESSION: No post thoracentesis pneumothorax. Assessment & Plan - Diagnosis (1) Acute hypoxemic respiratory failure Is this a current diagnosis for this admission?: YesPlan: Continue oxygen supplementation. (2) Chronic prescription opiate use Is this a current diagnosis for this admission?: YesPlan: Patient followed by Dr. Silva of pain management. Medications were increased today but caused oversedation. I will decrease scheduled Dilaudid. Continue when necessary Dilaudid. (3) Healthcare-associated pneumonia Is this a current diagnosis for this admission?: YesPlan: Cultures negative. Discontinue IV antibiotics. Start oral doxycycline. (4) Pleural effusion, left Is this a current diagnosis for this admission?: YesPlan: Status post thoracentesis on 06/04/2016 with removal of 400 mL fluid. Fluid consistent with parapneumonic effusion. (5) Diastolic CHF Qualifiers: Congestive heart failure chronicity: chronic Qualified Code(s): I50.32 - Chronic diastolic (congestive) heart failure Is this a current diagnosis for this admission?: Yes (6) Multiple myeloma Qualifiers: Multiple myeloma remission status: unspecified Qualified Code(s): C90.00 - Multiple myeloma not having achieved remission Is this a current diagnosis for this admission?: YesPlan: Followed by Dr. Cotton as an outpatient. (7) Odynophagia Is this a current diagnosis for this admission?: YesPlan: Consult Dr. Kilgore of GI for EGD. Start patient on IV Protonix. (8) Anemia Is this a current diagnosis for this admission?: YesPlan: Possibly secondary to chronic disease and iron deficiency. Start iron sulfate 325 mg daily. Monitor H&H for stability. (9) Ambulatory dysfunction Is this a current diagnosis for this admission?: YesPlan: Physical therapy to evaluate. - Time Time Spent with patient: 35 or more minutes Anticipated discharge: Home Within: within 48 hours
[2016-06-04] MEDS: PANTOPRAZOLE SODIUM 40 MG VIAL IV SCH (17:46)
[2016-06-04] MEDS: NORMAL SALINE 1000 ML 1,000 ML IV PRN (17:55)
--- NOTE | 2016-06-04 18:48 | PROGRESS NOTE E ---
Progress Note NAME: KRISTEN LARKIN : 1945 AGE: 71Y DATE: 06/04/2016 ROOM: 424 SUBJECTIVE: The patient notably underwent thoracocentesis on the left side today and notes that he had tolerated it well and is feeling better. He reports that he became quite sedated with the 16 mg dosing of hydromorphone. He notably has not had any morphine as this was taken off of his medication list. Given he was overly sedated with this, the medication was changed to hydromorphone 4 mg p.o. t.i.d. scheduled as well as another 4 hours p.o. q.4 p.r.n. pain. Otherwise, I have been unable to procure Relistor for the patient on a sample basis to have for use in hospital, but again, we will make recommendation as a trial for opiate-induced constipation as an outpatient. OBJECTIVE: VITAL SIGNS: Blood pressure 101/54. Heart rate 73. Oxygen saturation 98% on 2 L nasal cannula. Pain score 0 out of 5. GENERAL: The patient is sitting up in bed comfortably today. He is alert and oriented x3. He is sitting at the side of the bed in no acute distress. RESPIRATORY: Even unlabored work of breathing. MUSCULOSKELETAL: Moves all extremities. ASSESSMENT AND PLAN: The patient is faring better after thoracocentesis. Certainly as above, agree with diminishment in opioid medication. He has scheduled hydromorphone 4 mg p.o. q.8 hours, and we will see how he does with this. If he still sedated through the day tomorrow, may consider a switch back to morphine or further tapering of dosage as tolerated with regard to his current pain status. I am hopeful that after thoracocentesis he will have some improvement in the rib and chest pain overall. @ DICTATING PHYSICIAN: ALICIA RICCI M.D. [id number] PHY#: [id number] ID: [id number] JOB#: [id number] ACCT: [id number] cc: > MTDD
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
[2016-06-04] MEDS: SENNOSIDES/DOCUSATE 8.6-50 MG 1 EACH TABLET PO SCH (22:55)
[2016-06-04] MEDS: DOXYCYCLINE HYCLATE 100 MG TABLET PO SCH (22:55)
[2016-06-04] MEDS: TAMSULOSIN HCL 0.4 MG CAP.SR.24H PO SCH (22:56)
[2016-06-05] MEDS: NORMAL SALINE 1000 ML 1,000 ML IV PRN ×2 (06:09→18:48)
[2016-06-05] MEDS: DILTIAZEM HCL 30 MG TABLET PO SCH ×3 (06:09→18:48)
[2016-06-05] MEDS: PANTOPRAZOLE SODIUM 40 MG VIAL IV SCH (06:09)
[2016-06-05] MEDS: HYDROMORPHONE HCL 2 MG TABLET PO SCH ×3 (06:12→21:59)
[2016-06-05 07:15] LABS: ABSOLUTE EOSINOPHILS # (AUTO) 0.1 10^3/uL (0.0-0.6); ABSOLUTE MONOCYTES (AUTO) 0.5 10^3/uL (0.1-1.4); ABSOLUTE NEUT (AUTO) 3.4 10^3/uL (1.7-8.2); BASOPHILS % (AUTO) 0.8 % (0-2); EOSINOPHILS % (AUTO) 2.3 % (0-6); HEMOGLOBIN 9.7 g/dL (13.5-17.0); HGB HCT DIFFERENCE 0.1; LYMPHOCYTES % (AUTO) 20.5 % (13-45); MEAN CORPUSCULAR HEMOGLOBIN 27.7 pg (27.0-33.4); MEAN CORPUSCULAR HGB CONC 33.3 g/dL (32.0-36.0); MEAN CORPUSCULAR VOLUME 83 fl (80-97); MONOCYTES % (AUTO) 10.4 % (3-13); RED BLOOD COUNT 3.49 10^6/uL (4.35-5.55); RED CELL DISTRIBUTION WIDTH 15.7 % (11.5-14.0); WHITE BLOOD COUNT 5.1 10^3/uL (4.0-10.5)
[2016-06-05 07:29] LABS: ANION GAP 7 (5-19); BLOOD UREA NITROGEN 6 mg/dL (7-20); CARBON DIOXIDE 28 mmol/L (22-30); CHLORIDE 106 mmol/L (98-107); CREATININE RESULT 1.13 mg/dL (0.52-1.25); GLUCOSE 92 mg/dL (75-110); POTASSIUM 4.7 mmol/L (3.6-5.0); SODIUM 140.9 mmol/L (137-145)
[2016-06-05] MEDS: IPRATROPIUM/ALBUTEROL 0.5-2.5 MG/3 ML AMPUL NEB SCH ×4 (08:02→20:20)
[2016-06-05] MEDS: FLUTICASONE NASAL SPRAY 50 MCG/SPRY 120 SPRAY/16 GM NASL SCH (10:17)
[2016-06-05] MEDS: BUDESONIDE/FORMOTEROL 160-4.5 MCG 60 PUFF/6 GM MDI IH SCH ×2 (10:17→21:58)
[2016-06-05] MEDS: CALCIUM CARBONATE 500 MG TAB.CHEW PO SCH ×4 (10:19→21:59)
[2016-06-05] MEDS ORDERED: ONDANSETRON HCL INJ/PF 4 MG/2 ML SDV ONE (11:22)
[2016-06-05] MEDS ORDERED: MIDAZOLAM 2 MG/2 ML INJ ONE (11:22)
[2016-06-05] MEDS ORDERED: NALOXONE HCL INJ/PF 0.4 MG/1 ML SDV ONE (11:22)
[2016-06-05] MEDS ORDERED: PROMETHAZINE HCL INJ 25 MG/1 ML VIAL ONE (11:22)
[2016-06-05] MEDS ORDERED: DIPHENHYDRAMINE HCL 50 MG/ML VIAL ONE (11:22)
[2016-06-05] MEDS ORDERED: EPINEPHRINE INJ 1 MG/10 ML DISP.SYRIN ONE (11:23)
[2016-06-05] MEDS ORDERED: FLUMAZENIL INJ 0.5 MG/5 ML VIAL IV ONE (11:23)
[2016-06-05] MEDS ORDERED: FENTANYL CITRATE INJ/PF 100 MCG/2 ML AMPUL ONE (11:23)
[2016-06-05] MEDS ORDERED: GLUCAGON,HUMAN RECOMB 1 MG INJ ONE (11:23)
--- NOTE | 2016-06-05 11:55 | Operative Report ---
Operative Report DATE OF SURGERY: 06/05/16 Operative Report: The risks benefits and alternatives of the procedure explained to the patient in detail and informed consent is obtained that GIF Olympus video scope was inserted into the patient's mouth and hypopharynx the esophagus is identified intubated and insufflated the scope was then advanced through the esophagus stomach and duodenum retroflexion maneuver is done the esophagus stomach and first and second portions of the duodenum examined PREOPERATIVE DIAGNOSIS: Dysphagia, odynophagia, gastroesophageal reflux disease POSTOPERATIVE DIAGNOSIS: Hiatal hernia. Schatzki's ring status post breakage. Esophagitis. Gastritis. Duodenitis OPERATION: EGD with biopsy SURGEON: DESEAN MCCARTHY ANESTHESIA: Moderate Sedation - 2 mg of Versed, 75 g of fentanyl. Patient does have COPD conscious sedation monitoring time 30 minutes TISSUE REMOVED OR ALTERED: Esophageal specimens status post biopsy rule out Cid's. Gastric specimen rule out Helicobacter pylori COMPLICATIONS: None. ESTIMATED BLOOD LOSS: none. INTRAOPERATIVE FINDINGS: As noted above. PROCEDURE: Patient tolerated the procedure well. No immediate postprocedure complications are noted. Patient sent back to his room in good condition. Resume regular diet and advance as tolerated Resume previous activity level. We'll await on biopsies Continue PPI
[2016-06-05] MEDS: ASPIRIN 81 MG TABLET, ENT COATED PO SCH (13:50)
[2016-06-05] MEDS: GUAIFENESIN 600 MG TABLET.SA PO SCH ×2 (13:50→21:59)
[2016-06-05] MEDS: DOXYCYCLINE HYCLATE 100 MG TABLET PO SCH ×2 (13:53→21:59)
[2016-06-05] MEDS: NYSTATIN 500000 UNIT/5 ML UDCUP PO SCH ×4 (13:54→21:59)
[2016-06-05] MEDS: CETIRIZINE 10 MG TABLET PO SCH (13:54)
[2016-06-05] MEDS: FERROUS SULFATE 325 MG TABLET PO SCH (13:54)
[2016-06-05] MEDS: PSYLLIUM SEED-SF 5.85 GM PACKET PO SCH ×2 (13:59)
[2016-06-05] MEDS: POLYETHYLENE GLYCOL 3350 POWDER 17 GM/1 PACKET PO SCH (13:59)
[2016-06-05] MEDS: LANSOPRAZOLE 30 MG TAB.RAP.DR PO SCH (16:19)
--- NOTE | 2016-06-05 19:00 | PDOC PROGRESS REPORT ---
Subjective Progress Note for:: 06/05/16 Subjective:: No complaints. Pain controlled. Patient denies fever, chills, headache, new focal weakness, chest pain, shortness of breath, abdominal pain, nausea, vomiting, diarrhea, constipation. Physical Exam Vital Signs: Temp Pulse Resp BP Pulse Ox 97.5 F 65 16 103/51 L 92 06/05/16 15:36 06/05/16 16:36 06/05/16 16:36 06/05/16 15:36 06/05/16 15:36 Intake & Output 06/04/16 06/05/16 06/06/16 06:59 06:59 06:59 Intake Total 2089 2375 2154 Balance 2089 2375 2154 Weight 91.8 kg 90.6 kg GENERAL: No acute distress HEENT: Conjunctiva clear, nonicteric, moist mucous membranes, no JVD, midline trachea RESPIRATORY: Clear to auscultation bilaterally, no wheezes, no rhonchi CARDIAC: Regular rate and rhythm, no murmurs/gallops/rubs. No reproducible chest wall tenderness ABDOMEN: Soft, nondistended, nontender, positive bowel sounds, no rebound, no guarding EXTREMETIES: No edema, cyanosis, clubbing NEUROLOGIC: Alert, oriented to person/place/time, CN's grossly intact, no focal deficits SKIN: No rash, wounds PSYCH: Normal mood, normal affect Results Laboratory Results: 06/05/16 06:13 06/05/16 06:13 06/04/16 06/04/16 06/05/16 09:00 09:00 06:13 WBC 5.1 RBC 3.49 L Hgb 9.7 L Hct 29.0 L MCV 83 MCH 27.7 MCHC 33.3 RDW 15.7 H Plt Count 227 Seg Neutrophils % 66.0 Lymphocytes % 20.5 Monocytes % 10.4 Eosinophils % 2.3 Basophils % 0.8 Absolute Neutrophils 3.4 Absolute Lymphocytes 1.0 Absolute Monocytes 0.5 Absolute Eosinophils 0.1 Absolute Basophils 0.0 Sodium Potassium Chloride Carbon Dioxide Anion Gap BUN Creatinine Est GFR ( Amer) Est GFR (Non-Af Amer) Glucose Calcium Fluid Albumin 2.0 Fluid LDH 348 06/05/16 06:13 WBC RBC Hgb Hct MCV MCH MCHC RDW Plt Count Seg Neutrophils % Lymphocytes % Monocytes % Eosinophils % Basophils % Absolute Neutrophils Absolute Lymphocytes Absolute Monocytes Absolute Eosinophils Absolute Basophils Sodium 140.9 Potassium 4.7 Chloride 106 Carbon Dioxide 28 Anion Gap 7 BUN 6 L Creatinine 1.13 Est GFR ( Amer) > 60 Est GFR (Non-Af Amer) > 60 Glucose 92 Calcium 9.0 Fluid Albumin Fluid LDH Impressions: Chest/Abdomen CTA 06/01/16 21:59 IMPRESSION: 1. No pulmonary embolus or aortic pathology. 2. Left pleural effusion with associated left lower lobe consolidation or volume loss. Suspicious for pneumonia with parapneumonic effusion. 3. Other chronic changes as described. Head CT 06/03/16 00:00 IMPRESSION: No acute findings. Chronic lytic cranial lesions consistent with clinical history of multiple myeloma. Thoracentesis Ultrasound 06/04/16 00:00 IMPRESSION: SUCCESSFUL THORACENTESIS USING ULTRASOUND GUIDANCE. Chest X-Ray 06/04/16 11:30 IMPRESSION: No post thoracentesis pneumothorax. Assessment & Plan - Diagnosis (1) Acute hypoxemic respiratory failure Is this a current diagnosis for this admission?: YesPlan: Continue oxygen supplementation. (2) Chronic prescription opiate use Is this a current diagnosis for this admission?: YesPlan: Patient followed by Dr. Silva of pain management. Medications were increased today but caused oversedation. Continue scheduled Dilaudid. Continue when necessary Dilaudid. (3) Healthcare-associated pneumonia Is this a current diagnosis for this admission?: YesPlan: Cultures negative. Continue oral doxycycline. (4) Pleural effusion, left Is this a current diagnosis for this admission?: YesPlan: Status post thoracentesis on 06/04/2016 with removal of 400 mL fluid. Fluid consistent with parapneumonic effusion. (5) Diastolic CHF Qualifiers: Congestive heart failure chronicity: chronic Qualified Code(s): I50.32 - Chronic diastolic (congestive) heart failure Is this a current diagnosis for this admission?: Yes (6) Multiple myeloma Qualifiers: Multiple myeloma remission status: unspecified Qualified Code(s): C90.00 - Multiple myeloma not having achieved remission Is this a current diagnosis for this admission?: YesPlan: Followed by Dr. Cotton as an outpatient. (7) Odynophagia Is this a current diagnosis for this admission?: YesPlan: EGD with gastritis, esophagitis. Prevacid. (8) Anemia Is this a current diagnosis for this admission?: YesPlan: Possibly secondary to chronic disease and iron deficiency. Continue iron sulfate 325 mg daily. Monitor H&H for stability. (9) Ambulatory dysfunction Is this a current diagnosis for this admission?: YesPlan: Physical therapy to evaluate. - Time Time Spent with patient: 25-34 minutes
[2016-06-05] MEDS: SENNOSIDES/DOCUSATE 8.6-50 MG 1 EACH TABLET PO SCH (21:59)
[2016-06-05] MEDS: TAMSULOSIN HCL 0.4 MG CAP.SR.24H PO SCH (21:59)
[2016-06-06] MEDS: DILTIAZEM HCL 30 MG TABLET PO SCH ×3 (00:07→13:01)
[2016-06-06] MEDS: HYDROMORPHONE HCL 2 MG TABLET PO SCH ×2 (06:37→13:02)
[2016-06-06] MEDS: LANSOPRAZOLE 30 MG TAB.RAP.DR PO SCH (06:37)
[2016-06-06] MEDS: NORMAL SALINE 1000 ML 1,000 ML IV PRN (06:37)
[2016-06-06 07:06] LABS: ANION GAP 10 (5-19); BLOOD UREA NITROGEN 8 mg/dL (7-20); CALCIUM 9.2 mg/dL (8.4-10.2); CARBON DIOXIDE 27 mmol/L (22-30); CHLORIDE 106 mmol/L (98-107); CREATININE RESULT 1.13 mg/dL (0.52-1.25); GLUCOSE 86 mg/dL (75-110); POTASSIUM 4.9 mmol/L (3.6-5.0); SODIUM 142.6 mmol/L (137-145)
[2016-06-06] MEDS: IPRATROPIUM/ALBUTEROL 0.5-2.5 MG/3 ML AMPUL NEB SCH ×2 (07:47→11:36)
[2016-06-06] MEDS: CALCIUM CARBONATE 500 MG TAB.CHEW PO SCH ×2 (08:25→13:01)
[2016-06-06] MEDS: CETIRIZINE 10 MG TABLET PO SCH (09:16)
[2016-06-06] MEDS: ASPIRIN 81 MG TABLET, ENT COATED PO SCH (09:16)
[2016-06-06] MEDS: GUAIFENESIN 600 MG TABLET.SA PO SCH (09:16)
[2016-06-06] MEDS: FERROUS SULFATE 325 MG TABLET PO SCH (09:16)
[2016-06-06] MEDS: DOXYCYCLINE HYCLATE 100 MG TABLET PO SCH (09:16)
[2016-06-06 09:17] LABS: ABSOLUTE EOSINOPHILS # (AUTO) 0.2 10^3/uL (0.0-0.6); ABSOLUTE LYMPHOCYTES (AUTO) 1.3 10^3/uL (0.5-4.7); ABSOLUTE MONOCYTES (AUTO) 0.5 10^3/uL (0.1-1.4); ABSOLUTE NEUT (AUTO) 3.3 10^3/uL (1.7-8.2); BASOPHILS % (AUTO) 0.8 % (0-2); EOSINOPHILS % (AUTO) 2.9 % (0-6); HEMATOCRIT 29.2 % (37.9-51.0); HEMOGLOBIN 9.6 g/dL (13.5-17.0); HGB HCT DIFFERENCE -0.4; LYMPHOCYTES % (AUTO) 25.1 % (13-45); MEAN CORPUSCULAR HEMOGLOBIN 27.6 pg (27.0-33.4); MEAN CORPUSCULAR HGB CONC 32.8 g/dL (32.0-36.0); MEAN CORPUSCULAR VOLUME 84 fl (80-97); MONOCYTES % (AUTO) 9.9 % (3-13); RED BLOOD COUNT 3.47 10^6/uL (4.35-5.55); RED CELL DISTRIBUTION WIDTH 15.8 % (11.5-14.0); SEGMENTED NEUTROPHILS % (AUTO) 61.3 % (42-78); WHITE BLOOD COUNT 5.3 10^3/uL (4.0-10.5)
[2016-06-06] MEDS: POLYETHYLENE GLYCOL 3350 POWDER 17 GM/1 PACKET PO SCH (09:17)
[2016-06-06] MEDS: NYSTATIN 500000 UNIT/5 ML UDCUP PO SCH ×2 (09:17→13:01)
[2016-06-06] MEDS: FLUTICASONE NASAL SPRAY 50 MCG/SPRY 120 SPRAY/16 GM NASL SCH (09:17)
[2016-06-06] MEDS: BUDESONIDE/FORMOTEROL 160-4.5 MCG 60 PUFF/6 GM MDI IH SCH (09:18)
[2016-06-06] MEDS: PSYLLIUM SEED-SF 5.85 GM PACKET PO SCH ×2 (09:20)
[2016-06-06] MEDS ORDERED: AMPHETAMINE PO SCH (10:00)
[2016-06-06] MEDS ORDERED: DEXTROAMPHETAMINE PO SCH (10:00)
--- NOTE | 2016-06-06 12:11 | PDOC PROGRESS REPORT ---
Subjective Progress Note for:: 06/06/16 Subjective:: Patient underwent upper endoscopy yesterday and tolerated well. Biopsies do not show any evidence of Cid's esophagus. He is negative for Helicobacter pylori as well. No observed stricture or narrowing in the esophagus. No ulcers noted. He should be started on a PPI. Can follow-up as an outpatient if no other issues. Denies any chest pain shortness of breath. There is no melena Physical Exam Vital Signs: Temp Pulse Resp BP Pulse Ox 97.7 F 82 16 128/58 H 94 06/06/16 08:17 06/06/16 11:36 06/06/16 11:36 06/06/16 08:17 06/06/16 11:36 Intake & Output 06/05/16 06/06/16 06/07/16 06:59 06:59 06:59 Intake Total 2376 4735 Balance 2376 4735 Weight 90.6 kg 96 kg General appearance: PRESENT: no acute distress, well-developed, well-nourished Head exam: PRESENT: atraumatic, normocephalic Eye exam: PRESENT: EOMI, PERRLA. ABSENT: nystagmus, periorbital swelling, scleral icterus Mouth exam: PRESENT: moist Throat exam: ABSENT: tonsillar exudate, tonsillogmegaly Neck exam: ABSENT: meningismus, tenderness, thyromegaly Respiratory exam: PRESENT: symmetrical, unlabored. ABSENT: chest wall tenderness Cardiovascular exam: PRESENT: RRR, +S1, +S2. ABSENT: rubs GI/Abdominal exam: PRESENT: soft. ABSENT: ascites, distended, rebound, rigid, tenderness Extremities exam: ABSENT: joint swelling Musculoskeletal exam: PRESENT: full ROM Neurological exam: PRESENT: alert, awake, oriented to time, oriented to situation, reflexes normal, CN II-XII grossly intact Skin exam: PRESENT: normal color. ABSENT: mottled, pallor, petechiae, urticaria , vesicles Results Laboratory Results: 06/06/16 09:00 06/06/16 05:45 06/04/16 06/04/16 06/06/16 09:00 09:00 05:45 WBC Cancelled RBC Cancelled Hgb Cancelled Hct Cancelled MCV Cancelled MCH Cancelled MCHC Cancelled RDW Cancelled Plt Count Cancelled Seg Neutrophils % Cancelled Lymphocytes % Cancelled Monocytes % Cancelled Eosinophils % Cancelled Basophils % Cancelled Absolute Neutrophils Cancelled Absolute Lymphocytes Cancelled Absolute Monocytes Cancelled Absolute Eosinophils Cancelled Absolute Basophils Cancelled Sodium Potassium Chloride Carbon Dioxide Anion Gap BUN Creatinine Est GFR ( Amer) Est GFR (Non-Af Amer) Glucose Calcium Fluid Albumin 2.0 Fluid LDH 348 06/06/16 06/06/16 05:45 09:00 WBC 5.3 RBC 3.47 L Hgb 9.6 L Hct 29.2 L MCV 84 MCH 27.6 MCHC 32.8 RDW 15.8 H Plt Count 209 Seg Neutrophils % 61.3 Lymphocytes % 25.1 Monocytes % 9.9 Eosinophils % 2.9 Basophils % 0.8 Absolute Neutrophils 3.3 Absolute Lymphocytes 1.3 Absolute Monocytes 0.5 Absolute Eosinophils 0.2 Absolute Basophils 0.0 Sodium 142.6 Potassium 4.9 Chloride 106 Carbon Dioxide 27 Anion Gap 10 BUN 8 Creatinine 1.13 Est GFR ( Amer) > 60 Est GFR (Non-Af Amer) > 60 Glucose 86 Calcium 9.2 Fluid Albumin Fluid LDH Impressions: Chest/Abdomen CTA 06/01/16 21:59 IMPRESSION: 1. No pulmonary embolus or aortic pathology. 2. Left pleural effusion with associated left lower lobe consolidation or volume loss. Suspicious for pneumonia with parapneumonic effusion. 3. Other chronic changes as described. Head CT 06/03/16 00:00 IMPRESSION: No acute findings. Chronic lytic cranial lesions consistent with clinical history of multiple myeloma. Thoracentesis Ultrasound 06/04/16 00:00 IMPRESSION: SUCCESSFUL THORACENTESIS USING ULTRASOUND GUIDANCE. Chest X-Ray 06/04/16 11:30 IMPRESSION: No post thoracentesis pneumothorax. Assessment & Plan - Diagnosis (1) GERD (gastroesophageal reflux disease) Plan: start PPI negative for H.Pylori (2) Odynophagia Is this a current diagnosis for this admission?: YesPlan: May need manometry if no resolution (3) Anemia Is this a current diagnosis for this admission?: YesPlan: possible outpatient colonoscopy - Time Time Spent with patient: 15-24 minutes
[2016-06-06 13:45] VITALS: BP 119/56
--- NOTE | 2016-06-06 19:13 | PDOC DISCHARGE SUMMARY ---
General - Admit/Disc Date/PCP Admission Date/Primary Care Provider: 06/02/16 00:24 SINA ARELLANO, Discharge Date: 06/06/16 - Discharge Diagnosis (1) Acute hypoxemic respiratory failure Is this a current diagnosis for this admission?: Yes (2) Healthcare-associated pneumonia Is this a current diagnosis for this admission?: Yes (3) Pleural effusion, left Is this a current diagnosis for this admission?: Yes (4) Chronic prescription opiate use Is this a current diagnosis for this admission?: Yes (5) Diastolic CHF Is this a current diagnosis for this admission?: Yes (6) Multiple myeloma Is this a current diagnosis for this admission?: Yes (7) Odynophagia Is this a current diagnosis for this admission?: Yes (8) Anemia Is this a current diagnosis for this admission?: Yes (9) Ambulatory dysfunction Is this a current diagnosis for this admission?: Yes - Additional Information Resuscitation Status: Full Code Discharge Diet: Cardiac Discharge Activity: Activity As Tolerated Home Medications: Cetirizine HCl [Zyrtec 10 mg Tablet] 10 mg PO DAILY 06/02/16 Dextroamphetamine/Amphetamine [Adderall 10 mg Tablet] 10 mg PO DAILY 06/02/16 Lactulose [Enulose 10 gm/15 mL Oral Solution] 15 ml PO DAILY 06/02/16 Ondansetron [Zofran Odt] 8 mg PO Q8HP PRN 06/02/16 Tamsulosin HCl 0.8 mg PO QHS 06/02/16 Tiotropium [place] [Spiriva Handihaler 5 Cap/Kit (18 Mcg/Cap)] 1 puff IH DAILY 06/02/16 Acetaminophen [Tylenol 325 mg Tablet] 650 mg PO Q4HP PRN tablet 06/06/16 Aspirin [Ecotrin 81 mg EC Tablet] 81 mg PO DAILY tabec 06/06/16 Doxycycline Hyclate [Vibramycin 100 mg Tablet] 100 mg PO Q12 #14 tablet Fentanyl [Duragesic 100 Mcg/Hr Transdermal Patch] 1 each TD Q3D@1100 #5 patch.td72 06/06/16 Ferrous Sulfate [Feosol 325 mg Tablet] 325 mg PO DAILY #30 tablet 06/06/16 Guaifenesin [Mucinex Sr 600 mg Tablet.sa] 1,200 mg PO Q12 #30 tablet.sa Hydromorphone HCl [Dilaudid 2 mg Tablet] 4 mg PO Q4HP PRN tablet 06/06/16 Hydromorphone HCl [Dilaudid 2 mg Tablet] 4 mg PO Q8 #30 tablet 06/06/16 Lansoprazole [Prevacid 30 mg Odt Tablet] 30 mg PO BID@0600,1700 #60 tab.rap. 06/06/16 Polyethylene Glycol 3350 [Miralax Powder 17 gm/Packet] 17 gm PO DAILY #30 powd.pack 06/06/16 Sennosides/Docusate 8.6-50 mg [Senna Plus Tablet] 2 each PO QHS #60 tablet 06/06 Tamsulosin HCl [Flomax 0.4 mg Cap.sr] 0.8 mg PO QHS cap.sr.24h 06/06/16 Tiotropium [place] [Spiriva Handihaler 5 Cap/Kit (18 Mcg/Cap)] 1 cap IH DAILY kit 06/06/16 History of Present Illness Patient complains of: Shortness of breath History of Present Illness: KRISTEN LARKIN is a 71 year old male with history of multiple myeloma and left- sided pneumonia discharged 6 days ago, cultures did not grow and he had improvement on vancomycin and cefepime and was continued on oral doxycycline. Who had been improved until approximately 2 days ago noting to have a worsening of chronic left lower rib pain and shortness of breath with nonproductive cough prompting him to seek evaluation emergency room where his found to have an infiltrate left lower lobe and associated pleural effusion. He started on empiric vancomycin and cefepime and referred to the hospitalist for admission. Hospital Course Hospital Course: Patient was admitted for pneumonia of the left lower lobe with resulting parapneumonic effusion. He underwent diagnostic and therapeutic thoracentesis with removal 400 and muscle fluid. He was initially treated with IV antibiotics until cultures were negative. Patient has been transition to oral doxycycline. He has been stable for the past 48 hours on oral doxycycline. Patient was having pain with swallowing and therefore underwent upper endoscopy which showed esophagitis and gastritis. He has been placed on Prevacid. Patient has history of multiple myeloma. He is followed by Dr. Sunshine Cotton as an outpatient for this. Has chronic pain associated with multiple myeloma and pain regimen was adjusted by Dr. Silva of pain management. He will follow-up with Dr. Silva as an outpatient. Physical Exam Vital Signs: Temp Pulse Resp BP Pulse Ox 98.1 F 90 20 119/56 L 93 06/06/16 13:41 06/06/16 13:41 06/06/16 13:41 06/06/16 13:41 06/06/16 13:41 Intake & Output 06/05/16 06/06/16 06/07/16 06:59 06:59 06:59 Intake Total 8759 4734 320 Balance 2376 4735 320 Weight 90.6 kg 96 kg GENERAL: No acute distress HEENT: Conjunctiva clear, nonicteric, moist mucous membranes, no JVD, midline trachea RESPIRATORY: Clear to auscultation bilaterally, no wheezes, no rhonchi CARDIAC: Regular rate and rhythm, no murmurs/gallops/rubs ABDOMEN: Soft, nondistended, nontender, positive bowel sounds, no rebound, no guarding EXTREMETIES: No edema, cyanosis, clubbing NEUROLOGIC: Alert, oriented to person/place/time, CN's grossly intact, no focal deficits SKIN: No rash, wounds PSYCH: Normal mood, normal affect Results Laboratory Results: 06/06/16 09:00 06/06/16 05:45 06/06/16 06/06/16 06/06/16 05:45 05:45 09:00 WBC Cancelled 5.3 RBC Cancelled 3.47 L Hgb Cancelled 9.6 L Hct Cancelled 29.2 L MCV Cancelled 84 MCH Cancelled 27.6 MCHC Cancelled 32.8 RDW Cancelled 15.8 H Plt Count Cancelled 209 Seg Neutrophils % Cancelled 61.3 Lymphocytes % Cancelled 25.1 Monocytes % Cancelled 9.9 Eosinophils % Cancelled 2.9 Basophils % Cancelled 0.8 Absolute Neutrophils Cancelled 3.3 Absolute Lymphocytes Cancelled 1.3 Absolute Monocytes Cancelled 0.5 Absolute Eosinophils Cancelled 0.2 Absolute Basophils Cancelled 0.0 Sodium 142.6 Potassium 4.9 Chloride 106 Carbon Dioxide 27 Anion Gap 10 BUN 8 Creatinine 1.13 Est GFR ( Amer) > 60 Est GFR (Non-Af Amer) > 60 Glucose 86 Calcium 9.2 Impressions: Chest/Abdomen CTA 06/01/16 21:59 IMPRESSION: 1. No pulmonary embolus or aortic pathology. 2. Left pleural effusion with associated left lower lobe consolidation or volume loss. Suspicious for pneumonia with parapneumonic effusion. 3. Other chronic changes as described. Head CT 06/03/16 00:00 IMPRESSION: No acute findings. Chronic lytic cranial lesions consistent with clinical history of multiple myeloma. Thoracentesis Ultrasound 06/04/16 00:00 IMPRESSION: SUCCESSFUL THORACENTESIS USING ULTRASOUND GUIDANCE. Chest X-Ray 06/04/16 11:30 IMPRESSION: No post thoracentesis pneumothorax. Qualifiers PATEINT BEING DISCHARGED WITH ANY OF THE FOLLOWING DIAGNOSIS?: No Plan Time Spent: Less than 30 Minutes
== END 2016-06-06 15:19 | disposition home or self-care (01) | DRG 190 ==
LOC: ER 18:47 → EH 06-02 00:24 → 4S 06-02 04:05
PROVIDERS: ADMIT Internal Medicine; ATTEND Internal Medicine
PROC: 3E0F73Z Introduction of Anti-inflammatory into Respiratory Tract, Via Natural or Artificial Opening (ICD-10-PCS; 2016-06-02)
PROC: 0W9B3ZX Drainage of Left Pleural Cavity, Percutaneous Approach, Diagnostic (ICD-10-PCS; principal; 2016-06-04)
PROC: BB4BZZZ Ultrasonography of Pleura (ICD-10-PCS; 2016-06-04)
PROC: 0DB38ZX Excision of Lower Esophagus, Via Natural or Artificial Opening Endoscopic, Diagnostic (ICD-10-PCS; 2016-06-05)
DX: J44.0 Chronic obstructive pulmonary disease with (acute) lower respiratory infection (principal); J18.1 Lobar pneumonia, unspecified organism; J96.01 Acute respiratory failure with hypoxia; I50.32 Chronic diastolic (congestive) heart failure; C90.00 Multiple myeloma not having achieved remission; J90 Pleural effusion, not elsewhere classified; C41.9 Malignant neoplasm of bone and articular cartilage, unspecified; K44.0 Diaphragmatic hernia with obstruction, without gangrene; J44.1 Chronic obstructive pulmonary disease with (acute) exacerbation; R13.10 Dysphagia, unspecified; D64.9 Anemia, unspecified; M54.2 Cervicalgia; N40.0 Benign prostatic hyperplasia without lower urinary tract symptoms; K59.03 Drug induced constipation; T40.2X5A Adverse effect of other opioids, initial encounter; K44.9 Diaphragmatic hernia without obstruction or gangrene; K22.2 Esophageal obstruction; K21.0 Gastro-esophageal reflux disease with esophagitis; K29.70 Gastritis, unspecified, without bleeding; K29.80 Duodenitis without bleeding; E66.9 Obesity, unspecified; Z68.32 Body mass index [BMI] 32.0-32.9, adult; Z90.49 Acquired absence of other specified parts of digestive tract; Z87.891 Personal history of nicotine dependence; Z88.0 Allergy status to penicillin; Z88.3 Allergy status to other anti-infective agents; Z79.891 Long term (current) use of opiate analgesic; Z79.82 Long term (current) use of aspirin; Z79.899 Other long term (current) drug therapy; Z83.6 Family history of other diseases of the respiratory system; Z82.49 Family history of ischemic heart disease and other diseases of the circulatory system
CPT/HCPCS: 32555; 36415; 43239; 70450; 71010; 71020; 71275; 80048; 80053; 80202; 82040; 82042; 83615; 83690; 84484; 85025; 85610; 85730; 87040; 87070; 87075; 87205; 88305; 89050; 94640; 94667; 94668; 94799; 99285; G8978-GP; G8979-GP; G8980-GP; J0171; J0692; J1170; J1200; J1610; J1644; J1885; J2250; J2310; J2405; J2550; J3010; J3370; J3490; J7030; J7060; J7620; S0119; S0164

== ENCOUNTER → 2016-07-02 | Outpatient (CLI) | payer MEDICARE, BC | LOC: OD 12:23 | PROVIDERS: ATTEND Pathology Anatomic Pathology & Clinical Pathology | DX: J44.9 Chronic obstructive pulmonary disease, unspecified (principal); J20.9 Acute bronchitis, unspecified | CPT/HCPCS: 71020 ==

== ENCOUNTER → 2016-07-23 | Outpatient (CLI) | payer MEDICARE, BC | LOC: OD 14:37 | PROVIDERS: ATTEND Family Medicine Geriatric Medicine | DX: J44.1 Chronic obstructive pulmonary disease with (acute) exacerbation (principal) | CPT/HCPCS: 71020 ==

== ENCOUNTER 2016-08-20 09:22 | Day surgery (SDC) | payer MEDICARE, BC ==
[2016-08-13 09:50] LABS: HEMATOCRIT 31.4 % (37.9-51.0); HEMOGLOBIN 10.7 g/dL (13.5-17.0); HGB HCT DIFFERENCE 0.7; MEAN CORPUSCULAR HGB CONC 34.2 g/dL (32.0-36.0); MEAN CORPUSCULAR VOLUME 85 fl (80-97); RED BLOOD COUNT 3.71 10^6/uL (4.35-5.55); RED CELL DISTRIBUTION WIDTH 18.8 % (11.5-14.0); WHITE BLOOD COUNT 8.3 10^3/uL (4.0-10.5)
[2016-08-13 10:07] LABS: ANION GAP 14 (5-19); BLOOD UREA NITROGEN 20 mg/dL (7-20); CALCIUM 10.1 mg/dL (8.4-10.2); CARBON DIOXIDE 25 mmol/L (22-30); CHLORIDE 106 mmol/L (98-107); CREATININE RESULT 1.41 mg/dL (0.52-1.25); GLUCOSE 86 mg/dL (75-110); SODIUM 145.1 mmol/L (137-145)
--- NOTE | 2016-08-13 13:20 | EKG REPORT ---
SEVERITY:- ABNORMAL ECG - SINUS RHYTHM MULTIPLE ATRIAL PREMATURE COMPLEXES LOW VOLTAGE IN FRONTAL LEADS : Confirmed by: Oh Koo MD 13-Aug-2016 13:19:56
[~2016-08-20 09:22] MED LIST: ACETAMINOPHEN 325 MG TABLET PO PRN; LIDOCAINE 0.5% INJ-PF (5 MG/ML) 50 ML SDV INJ PRN; RINGERS SOLUTION,LACTATED 1,000 ML IV PRN; VANCOMYCIN HCL 1,000 MG in DEXTROSE 5%-WATER 250 ML IV PRN
[2016-08-20] MEDS ORDERED: BUPIVACAINE HCL 0.25 % INJ/PF (2.5 MG/1 ML) 30 ML VIAL ONE (09:32)
[2016-08-20] MEDS ORDERED: FENTANYL CITRATE INJ/PF 100 MCG/2 ML AMPUL ONE ×2 (10:47)
[2016-08-20] MEDS ORDERED: MIDAZOLAM 2 MG/2 ML INJ ONE (10:47)
[2016-08-20] MEDS ORDERED: PROPOFOL INJ 200 MG/20 ML VIAL IV ONE (10:48)
[2016-08-20] MEDS ORDERED: ACETAMINOPHEN 100 ML IV ONE (10:48)
[2016-08-20] MEDS ORDERED: FENTANYL CITRATE INJ/PF 100 MCG/2 ML AMPUL IV PRN ×3 (11:34)
[2016-08-20] MEDS ORDERED: PROMETHAZINE HCL INJ 25 MG/1 ML VIAL IV PRN ×2 (11:34)
[2016-08-20] MEDS ORDERED: MORPHINE SULFATE 10 MG/ML INJ IV PRN (11:34)
[2016-08-20] MEDS ORDERED: MEPERIDINE HCL/PF INJ 25 MG/1 ML DISP.SYRIN IV PRN (11:34)
[2016-08-20] MEDS ORDERED: OXYCODONE-ACETAMINOPHEN 5-325 MG TABLET PO PRN ×3 (11:34→12:12)
[2016-08-20] MEDS ORDERED: DIPHENHYDRAMINE HCL 50 MG/ML VIAL IV PRN (11:34)
--- NOTE | 2016-08-20 12:09 | Operative Report ---
Operative Report DATE OF SURGERY: 08/20/16 PREOPERATIVE DIAGNOSIS: Recurrent ventral hernia POSTOPERATIVE DIAGNOSIS: Recurrent ventral hernia OPERATION: Recurrent ventral hernia repair SURGEON: SANDRA FRANKLIN ANESTHESIA: GA TISSUE REMOVED OR ALTERED: None COMPLICATIONS: None ESTIMATED BLOOD LOSS: minimal INTRAOPERATIVE FINDINGS: 1.5 cm fascial defect several centimeters above the umbilicus with herniated preperitoneal fat PROCEDURE: Informed consent was obtained. Patient was brought to the operating room placed on the operating table in supine position. After satisfactory induction of general anesthesia patient's abdomen was prepped and draped in usual sterile fashion. Several centimeters above the umbilicus there was a palpable lump with overlying transverse scar. Incision was made transversely along the scar. Dissection was carried down revealing herniation that was composed of preperitoneal fat it was dissected free from the surrounding structures the fascial defect was 1.5 cm in size. The preperitoneal fat was tucked back into the preperitoneal cavity. With the small hernia, primary repair was performed in the transverse direction using interrupted Ethibond sutures. The repair came together well without tension. Hemostasis appeared excellent. Marcaine was injected at the operative site. The wound was closed with deep dermal interrupted Vicryl sutures followed by running subcuticular Monocryl suture. Patient tolerated procedure well with no apparent competitions and was taken to the recovery area in stable condition.
[2016-08-20] MEDS ORDERED: RINGERS SOLUTION,LACTATED 1,000 ML IV PRN (12:12)
[2016-08-20] MEDS ORDERED: ONDANSETRON HCL INJ/PF 4 MG/2 ML SDV IV PRN (12:12)
--- NOTE | 2016-08-20 12:12 | PDOC DISCHARGE SUMMARY ---
Discharge Summary (SDC) - Discharge Final Diagnosis: Recurrent ventral hernia Date of Surgery: 08/20/16 Discharge Date: 08/20/16 Condition: Good Treatment or Instructions: Recurrent ventral hernia repair. Patient home when met discharge criteria. Follow-up with me in 2 weeks. Stay active but avoid strenuous activity. May shower tomorrow night. Keep Steri-Strips on. Prescriptions: Oxycodone HCl/Acetaminophen [Percocet 5-325 mg Tablet] 1 tab PO ASDIR PRN #25 tablet PRN Reason: Discharge Diet: As Tolerated Discharge Activity: Activity As Tolerated - Stay active but avoid strenuous activity. May shower tomorrow night. Keep Steri-Strips on. Report the Following to Your Physician Immediately: Fever over 101 Degrees, Unusual Bleeding, Redness, Drainage-Foul Smelling
[2016-08-20] MEDS ORDERED: LIDOCAINE 2% INJ-PF (20 MG/ML) 10 ML AMPUL ONE (14:39)
[2016-08-20] MEDS ORDERED: GLYCOPYRROLATE INJ 0.4 MG/2 ML VIAL ONE (14:39)
[2016-08-20] MEDS ORDERED: ONDANSETRON HCL INJ/PF 4 MG/2 ML SDV ONE (14:39)
[2016-08-20] MEDS ORDERED: KETOROLAC TROMETHAMINE 60 MG/2 ML SDV ONE (14:39)
[2016-08-20] MEDS ORDERED: NEOSTIGMINE METHYLSULFATE 10 MG/10 ML VIAL ONE (14:39)
[2016-08-20] MEDS ORDERED: ROCURONIUM BROMIDE INJ 50 MG/5 ML VIAL IV ONE (14:39)
[2016-08-20] MEDS ORDERED: SUCCINYLCHOLINE CHLORIDE INJ 200 MG/10 ML VIAL ONE (14:39)
[2016-08-20 15:16] VITALS: BP 136/74
== END 2016-08-20 15:05 | disposition home or self-care (01) ==
LOC: OROUT 09:22
PROVIDERS: ATTEND Surgery
PROC: 0WQF0ZZ Repair Abdominal Wall, Open Approach (ICD-10-PCS; principal; 2016-08-20 11:00)
DX: K43.2 Incisional hernia without obstruction or gangrene (principal); I48.91 Unspecified atrial fibrillation; J44.9 Chronic obstructive pulmonary disease, unspecified; C90.00 Multiple myeloma not having achieved remission; Z88.0 Allergy status to penicillin; Z88.1 Allergy status to other antibiotic agents; Z79.899 Other long term (current) drug therapy; Z79.82 Long term (current) use of aspirin; Z79.51 Long term (current) use of inhaled steroids; Z79.891 Long term (current) use of opiate analgesic; Z87.891 Personal history of nicotine dependence
CPT/HCPCS: 93005; 36415; 85027; 80048; 71020; 93010; 49565; J2250; J3490 ×2; J1885; J3010; J0330; J2405; J7060; J2704; J3370; J0131

== ENCOUNTER 2016-08-20 20:32 | Emergency (ER) | payer MEDICARE, BC ==
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
[2016-08-20 22:29] LABS: APPEARANCE,URINE SLIGHTLY-CLOUDY; BILIRUBIN,URINE NEGATIVE (NEGATIVE); GLUCOSE, URINE NEGATIVE (NEGATIVE); KETONES,URINE NEGATIVE (NEGATIVE); LEUKOCYTE ESTERASE,URINE NEGATIVE (NEGATIVE); NITRITE,URINE NEGATIVE (NEGATIVE); PROTEIN,URINE NEGATIVE (NEGATIVE); URINE SPECIFIC GRAVITY 1.013; UROBILINOGEN,URINE NEGATIVE mg/dL (<2.0)
[2016-08-21 01:20] VITALS: BP 140/81
== END 2016-08-21 01:17 | disposition home or self-care (01) ==
LOC: ER 20:32
DX: R33.9 Retention of urine, unspecified (principal); R11.0 Nausea; J44.9 Chronic obstructive pulmonary disease, unspecified; Z88.3 Allergy status to other anti-infective agents; Z88.0 Allergy status to penicillin; Z90.49 Acquired absence of other specified parts of digestive tract; Z98.890 Other specified postprocedural states
CPT/HCPCS: 51701; 51702; 81001; 99284

== ENCOUNTER 2016-08-23 16:56 | Emergency (ER) | payer MEDICARE, BC ==
[2016-08-23] MEDS ORDERED: NORMAL SALINE 1000 ML 1,000 ML IV ONE (17:26)
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
[2016-08-23 18:07] LABS: ABSOLUTE EOSINOPHILS # (AUTO) 0.1 10^3/uL (0.0-0.6); ABSOLUTE LYMPHOCYTES (AUTO) 1.7 10^3/uL (0.5-4.7); ABSOLUTE MONOCYTES (AUTO) 0.5 10^3/uL (0.1-1.4); ABSOLUTE NEUT (AUTO) 5.3 10^3/uL (1.7-8.2); BASOPHILS % (AUTO) 0.6 % (0-2); EOSINOPHILS % (AUTO) 1.3 % (0-6); HEMATOCRIT 33.2 % (37.9-51.0); HEMOGLOBIN 11.2 g/dL (13.5-17.0); HGB HCT DIFFERENCE 0.4; LYMPHOCYTES % (AUTO) 22.1 % (13-45); MEAN CORPUSCULAR HEMOGLOBIN 29.3 pg (27.0-33.4); MEAN CORPUSCULAR HGB CONC 33.7 g/dL (32.0-36.0); MEAN CORPUSCULAR VOLUME 87 fl (80-97); RED BLOOD COUNT 3.83 10^6/uL (4.35-5.55); RED CELL DISTRIBUTION WIDTH 18.2 % (11.5-14.0); WHITE BLOOD COUNT 7.7 10^3/uL (4.0-10.5)
[2016-08-23 18:23] LABS: VENOUS BLOOD BASE EXCESS -1.1 mmol/L; VENOUS BLOOD HCO3 23.4 mmol/L (20-32); VENOUS BLOOD PH 7.41 (7.30-7.42)
[2016-08-23 18:33] LABS: ALANINE AMINOTRANSFERASE 17 U/L (21-72); ALKALINE PHOSPHATASE 52 U/L (38-126); ANION GAP 13 (5-19); ASPARTATE AMINO TRANSFERASE 18 U/L (17-59); BILIRUBIN,DIRECT 0.5 mg/dL (0.0-0.4); BILIRUBIN,TOTAL 0.7 mg/dL (0.2-1.3); BLOOD UREA NITROGEN 18 mg/dL (7-20); CALCIUM 9.9 mg/dL (8.4-10.2); CARBON DIOXIDE 23 mmol/L (22-30); CHLORIDE 109 mmol/L (98-107); CREATINE KINASE 46 U/L (55-170); CREATININE RESULT 1.38 mg/dL (0.52-1.25); GLUCOSE 90 mg/dL (75-110); LIPASE 69.7 U/L (23-300); POTASSIUM 4.1 mmol/L (3.6-5.0); TOTAL PROTEIN 7.3 g/dL (6.3-8.2)
[2016-08-23 18:46] LABS: TROPONIN I < 0.012 ng/mL
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
[2016-08-23] MEDS ORDERED: DOXYCYCLINE HYCLATE 100 MG TABLET PO ONE (21:56)
[2016-08-23 22:34] VITALS: BP 113/63
--- NOTE | 2016-08-24 13:06 | EKG REPORT ---
SEVERITY:- NORMAL ECG - SINUS RHYTHM : Confirmed by: Alvaro Hearn 24-Aug-2016 13:05:17
== END 2016-08-23 22:35 | disposition home or self-care (01) ==
LOC: ER 16:56
DX: R50.9 Fever, unspecified (principal); M79.1 Myalgia; R05 Cough; J44.9 Chronic obstructive pulmonary disease, unspecified; Z92.21 Personal history of antineoplastic chemotherapy; Z85.79 Personal history of other malignant neoplasms of lymphoid, hematopoietic and related tissues; Z85.830 Personal history of malignant neoplasm of bone; Z98.890 Other specified postprocedural states; Z88.1 Allergy status to other antibiotic agents; Z88.0 Allergy status to penicillin; Z87.891 Personal history of nicotine dependence
CPT/HCPCS: 93005; 99284; 96360; 36415; 87040; 87086; 82550; 83690; 85025; 87077; 80076; 80048; 81001; 84484; 87186; 82803; 83605; 83880; 71010; 74177; 93010; A9270; J7030

== ENCOUNTER → 2016-08-23 | Outpatient (CLI) | payer MEDICARE, BC ==
[2016-08-23 14:37] LABS: ABSOLUTE BASOPHILS # (AUTO) 0.1 10^3/uL (0.0-0.2); ABSOLUTE EOSINOPHILS # (AUTO) 0.1 10^3/uL (0.0-0.6); ABSOLUTE LYMPHOCYTES (AUTO) 2.2 10^3/uL (0.5-4.7); ABSOLUTE MONOCYTES (AUTO) 0.4 10^3/uL (0.1-1.4); ABSOLUTE NEUT (AUTO) 5.5 10^3/uL (1.7-8.2); EOSINOPHILS % (AUTO) 1.4 % (0-6); HEMATOCRIT 32.2 % (37.9-51.0); HEMOGLOBIN 10.9 g/dL (13.5-17.0); HGB HCT DIFFERENCE 0.5; LYMPHOCYTES % (AUTO) 26.8 % (13-45); MEAN CORPUSCULAR HEMOGLOBIN 28.8 pg (27.0-33.4); MEAN CORPUSCULAR VOLUME 85 fl (80-97); MONOCYTES % (AUTO) 4.8 % (3-13); RED CELL DISTRIBUTION WIDTH 18.1 % (11.5-14.0); WHITE BLOOD COUNT 8.3 10^3/uL (4.0-10.5)
[2016-08-23 15:06] LABS: APPEARANCE,URINE CLEAR; BILIRUBIN,URINE NEGATIVE (NEGATIVE); GLUCOSE, URINE NEGATIVE (NEGATIVE); KETONES,URINE NEGATIVE (NEGATIVE); LEUKOCYTE ESTERASE,URINE NEGATIVE (NEGATIVE); NITRITE,URINE NEGATIVE (NEGATIVE); PROTEIN,URINE NEGATIVE (NEGATIVE); URINE SPECIFIC GRAVITY 1.011; UROBILINOGEN,URINE NEGATIVE mg/dL (<2.0)
== END ==
LOC: OD 13:38
PROVIDERS: ATTEND Surgery
DX: R50.9 Fever, unspecified (principal); Z98.890 Other specified postprocedural states
CPT/HCPCS: 36415; 81001; 85025; 87086

== ENCOUNTER → 2016-09-20 | Outpatient (CLI) | payer MEDICARE, BC ==
--- NOTE | 2016-09-23 08:29 | RADIOLOGY REPORT (SQ) ---
EXAM DESCRIPTION: PET CT SKULL/THIGH COMPLETED DATE/TIME: 09/20/2016 1:41 pm REASON FOR STUDY: MYELOMA C90.02 MULTIPLE MYELOMA IN RELAPSE COMPARISON: 12/15/2015 and 03/26/2015. RADIONUCLIDE AND DOSE: 12.0 mCi F18 FDG The route of agent administration: Intravenous FASTING BLOOD SUGAR: 107 mg/dl CONTRAST TYPE AND DOSE: No CT contrast given. TECHNIQUE: Blood glucose level was verified. Above dose of FDG was injected intravenously. 2-D seg mented attenuation correction images were obtained through the entire body. Noncontrast CT images we re obtained for attenuation correction and fusion with emission images. CT images were performed wit hout oral or intravenous contrast and are not sensitive for parenchymal lesions. A series of overlap ping emission PET images were obtained. Images reviewed and manipulated at independent work station by the radiologist. Images stored on PACS. LIMITATIONS: None. FINDINGS: HEAD AND NECK: Surgical changes in the left frontal bone. Increased activity associated w ith the lesion in the anterior hard palate. Mean SUV value 6.91. CHEST: No areas of abnormal metabolic activity in the chest. ABDOMEN AND PELVIS: No areas of abnormal metabolic activity in the abdomen or pelvis. Expected physi ologic activity is present in the genitourinary system and bowel. LOWER EXTREMITIES: No areas of abnormal metabolic activity in the soft tissues of the lower extremiti es. BONES: Multiple lytic lesions throughout the skeleton. Old rib fractures. No abnormal metabolic ac tivity. There is mild asymmetric activity in the muscular tissues of the right shoulder with no foca l soft tissue lesions. ADDITIONAL CT FINDINGS: Fluid collection in the left inguinal region, unchanged. OTHER: No other significant findings. IMPRESSION: 1. BONY LESION IN THE ANTERIOR HARD PALATE WITH ABNORMAL METABOLIC ACTIVITY. THIS COULD BE DUE TO AN ACTIVE LESION OR COULD BE RELATED TO INFLAMMATORY PROCESS OR PRIOR TRAUMA. RECOMMEND CORRELATION WI TH CLINICAL EXAM. 2. MULTIPLE LYTIC LESIONS THROUGHOUT THE SKELETON. NO ABNORMAL METABOLIC ACTIVITY ASSOCIATED WITH TH XENA LESIONS. 3. MILD ASYMMETRIC ACTIVITY IN THE MUSCULAR TISSUES OF THE RIGHT SHOULDER WITH NO FOCAL LESIONS. LIK TONI DUE TO SKELETAL ACTIVITY DURING THE STUDY. 4. STABLE CT FINDINGS. TECHNICAL DOCUMENTATION: JOB ID: [id number]- All Rights Reserved
== END ==
LOC: RAD 10:32
PROVIDERS: ATTEND Specialist
DX: C90.02 Multiple myeloma in relapse (principal)
CPT/HCPCS: 78815; A9552

== ENCOUNTER → 2016-10-29 | Outpatient (CLI) | payer MEDICARE, BC ==
--- NOTE | 2016-10-29 15:04 | RADIOLOGY REPORT (SQ) ---
EXAM DESCRIPTION: SACRUM AND COCCYX COMPLETED DATE/TIME: 10/29/2016 2:40 pm REASON FOR STUDY: LOW BACK PAIN M54.5 LOW BACK PAIN COMPARISON: Lumbar spine plain films same date NUMBER OF VIEWS: Three views. TECHNIQUE: AP, lateral, and tilt views of the sacrum and coccyx. LIMITATIONS: None. FINDINGS: MINERALIZATION: Normal. BONES: Sclerotic bony irregularity left anterior superior iliac spine region, could be due to old hea led fracture or bone graft harvest site. Tiny lytic lesions seen on CT exam 09/20/2016 are not apparent by plain film. No pathologic fracture. SOFT TISSUES: No soft tissue swelling. No foreign body. OTHER: No other significant finding. IMPRESSION: Bones are osteopenic. Tiny lytic lesions in the pelvis seen on CT 09/20/2016 from multipl e myeloma are not apparent by plain film. Old left bony deformity anterior superior iliac spine/left iliac crest. This could be old posttrauma tic change or bone graft harvest site. TECHNICAL DOCUMENTATION: JOB ID: [id number] [email or web address]- All Rights Reserved
--- NOTE | 2016-10-29 15:08 | RADIOLOGY REPORT (SQ) ---
EXAM DESCRIPTION: LUMBAR SPINE COMPLETE COMPLETED DATE/TIME: 10/29/2016 2:40 pm REASON FOR STUDY: LOW BACK PAIN M54.5 LOW BACK PAIN COMPARISON: CT abdomen pelvis 08/23/2016, 09/20/2016 NUMBER OF VIEWS: Five views including obliques. TECHNIQUE: AP, lateral, oblique, and sacral radiographic images acquired of the lumbar spine. LIMITATIONS: None. FINDINGS: MINERALIZATION: Osteopenia SEGMENTATION: Small disc space at L5-S1 with large L5 transverse processes articulating with the uppe r sacrum ALIGNMENT: Normal. VERTEBRAE: Maintained height. No fracture or worrisome bone lesion. DISCS: Preserved height. No significant osteophytes or end plate irregularity. POSTERIOR ELEMENTS: Lower lumbar facet arthropathy at L4-5, pfti-[id number]-right HARDWARE: Clips right upper quadrant post cholecystectomy PARASPINAL SOFT TISSUES: Calcified abdominal aorta without calcified aneurysm PELVIS: Intact as visualized. No fractures or worrisome bone lesions. SI joints intact. OTHER: Tiny lytic lesions seen in the spine on prior PET-CT and CT abdomen pelvis are not apparent by plain film. IMPRESSION: Degenerative changes lower lumbar spine. No acute compression deformity TECHNICAL DOCUMENTATION: JOB ID: [id number] [employer]- All Rights Reserved
== END ==
LOC: OD 14:18
PROVIDERS: ATTEND Family Medicine Geriatric Medicine
DX: M54.5 Low back pain (principal); M47.896 Other spondylosis, lumbar region; M85.88 Other specified disorders of bone density and structure, other site
CPT/HCPCS: 72110; 72220

== ENCOUNTER → 2016-10-29 | Outpatient (CLI) | payer MEDICARE, BC ==
--- NOTE | 2016-10-29 13:11 | RADIOLOGY REPORT (SQ) ---
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 Additional thin slice images with and without gadolinium contrast acquired of the orbits. Images stored on PACS. CONTRAST TYPE AND DOSE: No contrast RENAL FUNCTION: Creatinine 1.9 LIMITATIONS: None. FINDINGS: Imaging of the facial soft tissues was performed. This includes small [id number] imagi ng of the hard palate and large field of view imaging of the remainder the facial structures. Patient was imaged with his dentures present. In the anterior midline hard palate, a 2.8 cm transverse by 2.5 cm AP by 1.3 cm craniocaudad soft tis daron lesion is present with a sequestered devascularized bone fragment present within the mass. Bone fragment measures about 1 cm AP x 2 cm transverse by 0.3 cm craniocaudad. This is in the area of PET positive abnormality 09/20/2016. On coronal image 5, there is soft tissue bulging superiorly from the hard palate lesion into the infe rior aspect of the nasal cavity to the left of the nasal septum. This soft tissue measures 13 mm in greatest craniocaudad diameter and 12 mm transverse. There is extension of this process laterally, to the inferior medial edge of the right maxillary sinu s. Inferior medial edge of the right maxillary sinus is filled with high intensity T2 secretions/muc ous membrane thickening on axial series 15, image 6. No air-fluid level in the right maxillary sinus . No premaxillary are alveolar ridge soft tissue. Remainder the facial soft tissues are unremarkable. Infratemporal fossa on the right is unremarkable. Sublingual, submandibular and parotid glands are unremarkable. Normal fat planes in the parapharyngeal spaces and surrounding the altitude chamber technician spaces. Inferior brain parenchyma in the field of view is unremarkable. Globes are post cataract surgery bilaterally. Orbits are otherwise unremarkable. IMPRESSION: Tumor with bone necrosis in the anterior hard palate with the vascularized bone fragment centrally within the tumor. There is mild bulging of tumor into the left inferior nasal cavity. Mild mucous membrane thickening in the anterior inferior right maxillary sinus TECHNICAL DOCUMENTATION: JOB ID: [id number] [employer]- All Rights Reserved
== END ==
LOC: RAD 09:14
PROVIDERS: ATTEND Internal Medicine
DX: C05.9 Malignant neoplasm of palate, unspecified (principal)
CPT/HCPCS: 70540; 72110; 72220

== ENCOUNTER → 2017-01-28 | Outpatient (CLI) | payer MEDICARE, BC ==
[2017-01-28 12:11] LABS: ABSOLUTE BASOPHILS # (AUTO) 0.1 10^3/uL (0.0-0.2); ABSOLUTE EOSINOPHILS # (AUTO) 0.1 10^3/uL (0.0-0.6); ABSOLUTE MONOCYTES (AUTO) 0.4 10^3/uL (0.1-1.4); ABSOLUTE NEUT (AUTO) 4.7 10^3/uL (1.7-8.2); BASOPHILS % (AUTO) 0.7 % (0-2); HEMATOCRIT 35.6 % (37.9-51.0); HEMOGLOBIN 12.3 g/dL (13.5-17.0); HGB HCT DIFFERENCE 1.3; LYMPHOCYTES % (AUTO) 27.5 % (13-45); MEAN CORPUSCULAR HGB CONC 34.6 g/dL (32.0-36.0); MEAN CORPUSCULAR VOLUME 87 fl (80-97); MONOCYTES % (AUTO) 5.6 % (3-13); RED BLOOD COUNT 4.11 10^6/uL (4.35-5.55); RED CELL DISTRIBUTION WIDTH 14.2 % (11.5-14.0); SEGMENTED NEUTROPHILS % (AUTO) 65.2 % (42-78); WHITE BLOOD COUNT 7.2 10^3/uL (4.0-10.5)
[2017-01-28 12:43] LABS: ALANINE AMINOTRANSFERASE 27 U/L (21-72); ALBUMIN 4.3 g/dL (3.5-5.0); ALKALINE PHOSPHATASE 59 U/L (38-126); ANION GAP 14 (5-19); ASPARTATE AMINO TRANSFERASE 22 U/L (17-59); BILIRUBIN,DIRECT 0.4 mg/dL (0.0-0.4); BILIRUBIN,TOTAL 0.8 mg/dL (0.2-1.3); BLOOD UREA NITROGEN 15 mg/dL (7-20); CALCIUM 9.4 mg/dL (8.4-10.2); CARBON DIOXIDE 22 mmol/L (22-30); CHLORIDE 112 mmol/L (98-107); CREATININE RESULT 1.25 mg/dL (0.52-1.25); Direct HDL 40 mg/dL (>40); GLUCOSE 106 mg/dL (75-110); POTASSIUM 4.4 mmol/L (3.6-5.0); SODIUM 147.7 mmol/L (137-145); TOTAL PROTEIN 7.1 g/dL (6.3-8.2); TRIGLYCERIDES 130 mg/dL (<150)
[2017-01-28 12:54] LABS: DIRECT LDL 105 mg/dL (<100)
== END ==
LOC: OD 11:09
PROVIDERS: ATTEND Family Medicine Geriatric Medicine
DX: N40.1 Benign prostatic hyperplasia with lower urinary tract symptoms (principal); E78.5 Hyperlipidemia, unspecified; K21.9 Gastro-esophageal reflux disease without esophagitis; J44.9 Chronic obstructive pulmonary disease, unspecified; Z79.899 Other long term (current) drug therapy
CPT/HCPCS: 36415; 80053; 80061; 84153; 84443; 85025

== ENCOUNTER → 2017-03-17 | Outpatient (CLI) | payer MEDICARE, BC ==
--- NOTE | 2017-03-17 15:58 | RADIOLOGY REPORT (SQ) ---
EXAM DESCRIPTION: BONE SURVEY COMPLETE COMPLETED DATE/TIME: 03/17/2017 3:45 pm REASON FOR STUDY: C90.02 MULTIPLE MYELOMA IN RELAPSE COMPARISON: 10/21/2014 TECHNIQUE: Images of the axial and proximal appendicular skeleton are obtained, along with lateral s kull and frontal chest films. LIMITATIONS: None. FINDINGS: AP CHEST: No bony findings. Lungs are clear. LATERAL SKULL: Multiple lytic lesions grossly unchanged. AP BOTH HUMERI: Stable lytic lesions. TWO-VIEW LUMBAR SPINE: No worrisome bone lesions. TWO-VIEW THORACIC SPINE: No worrisome bone lesions. AP PELVIS: No worrisome bone lesions. AP BOTH FEMURS: No definite lytic lesions. OTHER: No other significant finding. IMPRESSION: Positive bone survey without progression.
== END ==
LOC: RAD 14:58
PROVIDERS: ATTEND Internal Medicine
DX: C90.02 Multiple myeloma in relapse (principal)
CPT/HCPCS: 77075

== ENCOUNTER 2017-05-15 12:26 | Outpatient (CLI) | payer MEDICARE, BC ==
[~2017-05-15 12:26] MED LIST changes: -ACETAMINOPHEN 325 MG TABLET PO PRN; -LIDOCAINE 0.5% INJ-PF (5 MG/ML) 50 ML SDV INJ PRN; +NORMAL SALINE 1000 ML 1,000 ML IV PRN; -RINGERS SOLUTION,LACTATED 1,000 ML IV PRN; -VANCOMYCIN HCL 1,000 MG in DEXTROSE 5%-WATER 250 ML IV PRN
[2017-05-15 13:31] VITALS: BP 119/66
== END 2017-05-15 15:27 | disposition home or self-care (01) ==
LOC: II 12:26 → 5TH 13:06 → II 15:27
PROVIDERS: ATTEND Internal Medicine
PROC: 3E0337Z Introduction of Electrolytic and Water Balance Substance into Peripheral Vein, Percutaneous Approach (ICD-10-PCS; principal; 2017-05-15)
DX: E86.0 Dehydration (principal); C90.02 Multiple myeloma in relapse
CPT/HCPCS: 96360

== ENCOUNTER → 2017-05-27 | Outpatient (CLI) | payer MEDICARE, BC ==
[2017-05-27 14:57] LABS: LIPASE 69.5 U/L (23-300)
== END ==
LOC: OD 13:55
PROVIDERS: ATTEND Family Medicine Geriatric Medicine
DX: R11.2 Nausea with vomiting, unspecified (principal); R10.13 Epigastric pain
CPT/HCPCS: 36415; 82150; 83690

== ENCOUNTER 2017-05-28 09:44 | Outpatient (CLI) | payer MEDICARE, BC ==
[2017-05-28] MEDS ORDERED: NORMAL SALINE 1000 ML 1,000 ML IV PRN (10:18)
[2017-05-28 11:13] VITALS: BP 113/67
== END 2017-05-28 11:32 | disposition home or self-care (01) ==
LOC: II 09:44 → 5TH 10:10 → II 11:32
PROVIDERS: ATTEND Internal Medicine
PROC: 3E0337Z Introduction of Electrolytic and Water Balance Substance into Peripheral Vein, Percutaneous Approach (ICD-10-PCS; principal; 2017-05-28)
DX: E86.0 Dehydration (principal); C90.02 Multiple myeloma in relapse
CPT/HCPCS: 96360

== ENCOUNTER → 2017-06-09 | Outpatient (CLI) | payer MEDICARE, BC ==
--- NOTE | 2017-06-09 16:59 | RADIOLOGY REPORT (SQ) ---
EXAM DESCRIPTION: CHEST PA/LATERAL COMPLETED DATE/TIME: 06/09/2017 3:05 pm REASON FOR STUDY: COPD,BRONCHITIS, NOT SPECIFIED ACUTE OR CHRONIC J44.9 CHRONIC OBSTRUCTIVE PULM ONARY DISEASE, UNSPECIFIED J40 BRONCHITIS, NOT SPECIFIED ACUTE OR CHRONIC COMPARISON: 08/23/2016. NUMBER OF VIEWS: Two view. TECHNIQUE: Frontal and lateral radiographic views of the chest acquired. LIMITATIONS: None. FINDINGS: LUNGS AND PLEURA: No opacities, masses or pneumothorax. No pleural effusion. Attenuated bl ood vessels and flattened kristal-diaphragms. MEDIASTINUM AND HILAR STRUCTURES: No masses. No contour abnormalities. HEART AND VASCULAR STRUCTURES: Heart normal in size and contour. No evidence for failure. BONES: No acute findings. Old rib fractures. HARDWARE: None in the chest. OTHER: No other significant finding. IMPRESSION: COPD. NO ACUTE RADIOGRAPHIC FINDING IN THE CHEST. TECHNICAL DOCUMENTATION: JOB ID: [id number] [employer]- All Rights Reserved Reading location - IP/workstation name: [email or web address]
== END ==
LOC: OD 14:53
PROVIDERS: ATTEND Family Medicine Geriatric Medicine
DX: J44.9 Chronic obstructive pulmonary disease, unspecified (principal); J40 Bronchitis, not specified as acute or chronic
CPT/HCPCS: 71046

== ENCOUNTER 2017-06-19 14:41 | Emergency (ER) | payer MEDICARE, BC ==
[2017-06-19] MEDS ORDERED: NORMAL SALINE 1000 ML 1,000 ML IV ONE ×2 (14:53→16:48)
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
[2017-06-19 15:50] LABS: ABSOLUTE LYMPHOCYTES (AUTO) 1.3 10^3/uL (0.5-4.7); ABSOLUTE MONOCYTES (AUTO) 0.3 10^3/uL (0.1-1.4); ABSOLUTE NEUT (AUTO) 6.7 10^3/uL (1.7-8.2); BASOPHILS % (AUTO) 0.4 % (0-2); EOSINOPHILS % (AUTO) 0.1 % (0-6); HEMATOCRIT 36.1 % (37.9-51.0); HEMOGLOBIN 12.2 g/dL (13.5-17.0); LYMPHOCYTES % (AUTO) 15.9 % (13-45); MEAN CORPUSCULAR HEMOGLOBIN 28.9 pg (27.0-33.4); MEAN CORPUSCULAR VOLUME 85 fl (80-97); MONOCYTES % (AUTO) 3.8 % (3-13); PLATELET COUNT 194 10^3/uL (150-450); RED BLOOD COUNT 4.24 10^6/uL (4.35-5.55); RED CELL DISTRIBUTION WIDTH 13.6 % (11.5-14.0); SEGMENTED NEUTROPHILS % (AUTO) 79.8 % (42-78); TOTAL CELLS COUNTED % (AUTO) 100 %; WHITE BLOOD COUNT 8.4 10^3/uL (4.0-10.5)
[2017-06-19 16:13] LABS: ALANINE AMINOTRANSFERASE 32 U/L (21-72); ALKALINE PHOSPHATASE 52 U/L (38-126); ANION GAP 12 (5-19); ASPARTATE AMINO TRANSFERASE 21 U/L (17-59); BILIRUBIN,DIRECT 0.1 mg/dL (0.0-0.4); BILIRUBIN,TOTAL 0.4 mg/dL (0.2-1.3); BLOOD UREA NITROGEN 14 mg/dL (7-20); CALCIUM 9.1 mg/dL (8.4-10.2); CARBON DIOXIDE 21 mmol/L (22-30); CHLORIDE 110 mmol/L (98-107); GLUCOSE 104 mg/dL (75-110); POTASSIUM 3.9 mmol/L (3.6-5.0); SODIUM 142.5 mmol/L (137-145); TOTAL PROTEIN 6.3 g/dL (6.3-8.2)
[2017-06-19 16:15] VITALS: BP 111/67
--- NOTE | 2017-06-19 17:07 | RADIOLOGY REPORT (SQ) ---
EXAM DESCRIPTION: CT ABD/PELVIS WITH IV ONLY COMPLETED DATE/TIME: 06/19/2017 4:52 pm REASON FOR STUDY: abdominal pain COMPARISON: August 2016 TECHNIQUE: CT scan of the abdomen and pelvis performed using helical scanning technique with dynamic intravenous contrast injection. No oral contrast. Images reviewed with lung, soft tissue, and bone windows. Reconstructed coronal and sagittal MPR images reviewed. Delayed images for evaluation of the urinary system also acquired. All images stored on PACS. All CT scanners at this facility use dose modulation, iterative reconstruction, and/or weight based d osing when appropriate to reduce radiation dose to as low as reasonably achievable (ALARA). [facility]: Dose Right [facility]: CareDose [facility]: Dose Right [facility]: Teradose 4D [facility]: [employer] CONTRAST TYPE AND DOSE: contrast/concentration: Isovue 370.00 mg/ml; Total Contrast Delivered: 91.0 ml; Total Saline Delivered: 42.0 ml RENAL FUNCTION: Creatinine 0.94 RADIATION DOSE: CT Rad equipment meets quality standard of care and radiation dose reduction techniq ues were employed. CTDIvol: NaN - NaN mGy. DLP: 0 mGy-cm.. LIMITATIONS: None. FINDINGS: LOWER CHEST: No significant findings. No nodules or infiltrates. LIVER: Normal size. No masses. No dilated ducts. SPLEEN: Normal size. No focal lesions. PANCREAS: No masses. No significant calcifications. No adjacent inflammation or peripancreatic fluid collections. Pancreatic duct not dilated. GALLBLADDER: Status post cholecystectomy ADRENAL GLANDS: No significant masses or asymmetry. RIGHT KIDNEY AND URETER: No solid masses. No significant calcifications. No hydronephrosis or hyd roureter. LEFT KIDNEY AND URETER: No solid masses. No significant calcifications. No hydronephrosis or hydr oureter. AORTA AND VESSELS: No aneurysm. No dissection. Renal arteries, SMA, celiac without stenosis. RETROPERITONEUM: No retroperitoneal adenopathy, hemorrhage or masses. BOWEL AND PERITONEAL CAVITY: No masses or inflammatory changes. No free fluid or peritoneal masses. APPENDIX: Normal. PELVIS: No mass. No free fluid. Normal bladder. ABDOMINAL WALL: Patient is status post left inguinal hernia repair. A 3.1 cm in diameter fluid colle ction is again identified at the surgical site most consistent with a postop seroma. BONES: The previously described small lucent lesions in the lumbar vertebral bodies appears stable P OTHER: No other significant finding. IMPRESSION: No significant interval change. No acute findings. Other findings as noted above. TECHNICAL DOCUMENTATION: JOB ID: [id number] Quality ID # [id number]: Final reports with documentation of one or more dose reduction techniques (e.g., Au tomated exposure control, adjustment of the mA and/or kV according to patient size, use of iterative reconstruction technique) 2010 [email or web address]- All Rights Reserved Reading location - IP/workstation name: [email or web address]
--- NOTE | 2017-06-19 21:55 | EKG REPORT ---
SEVERITY:- BORDERLINE ECG - SINUS RHYTHM LOW VOLTAGE THROUGHOUT : Confirmed by: Alvaro Hearn 19-Jun-2017 21:55:18
== END 2017-06-19 17:35 | disposition home or self-care (01) ==
LOC: ER 14:41
DX: R11.2 Nausea with vomiting, unspecified (principal); R19.7 Diarrhea, unspecified; R10.9 Unspecified abdominal pain; R53.1 Weakness; R53.81 Other malaise; J44.9 Chronic obstructive pulmonary disease, unspecified; C90.00 Multiple myeloma not having achieved remission; Z92.21 Personal history of antineoplastic chemotherapy; Z88.1 Allergy status to other antibiotic agents; Z88.0 Allergy status to penicillin; Z87.19 Personal history of other diseases of the digestive system; Z90.49 Acquired absence of other specified parts of digestive tract
CPT/HCPCS: 93005; 99284; 36415; 82962; 85025; 80053; 83605; 74177; 93010; J7030

== ENCOUNTER → 2017-08-18 | Outpatient (CLI) | payer MEDICARE, BC ==
[2017-08-18 13:43] LABS: ABSOLUTE EOSINOPHILS # (AUTO) 0.1 10^3/uL (0.0-0.6); ABSOLUTE LYMPHOCYTES (AUTO) 1.4 10^3/uL (0.5-4.7); ABSOLUTE MONOCYTES (AUTO) 0.6 10^3/uL (0.1-1.4); ABSOLUTE NEUT (AUTO) 5.6 10^3/uL (1.7-8.2); BASOPHILS % (AUTO) 0.5 % (0-2); EOSINOPHILS % (AUTO) 1.2 % (0-6); HEMATOCRIT 33.1 % (37.9-51.0); HEMOGLOBIN 11.2 g/dL (13.5-17.0); LYMPHOCYTES % (AUTO) 18.2 % (13-45); MEAN CORPUSCULAR HEMOGLOBIN 29.4 pg (27.0-33.4); MEAN CORPUSCULAR VOLUME 87 fl (80-97); MONOCYTES % (AUTO) 7.3 % (3-13); PLATELET COUNT 153 10^3/uL (150-450); RED BLOOD COUNT 3.82 10^6/uL (4.35-5.55); RED CELL DISTRIBUTION WIDTH 14.8 % (11.5-14.0); SEGMENTED NEUTROPHILS % (AUTO) 72.8 % (42-78); TOTAL CELLS COUNTED % (AUTO) 100 %; WHITE BLOOD COUNT 7.7 10^3/uL (4.0-10.5)
[2017-08-18 13:52] LABS: ALANINE AMINOTRANSFERASE 36 U/L (21-72); ALBUMIN 3.7 g/dL (3.5-5.0); ALKALINE PHOSPHATASE 54 U/L (38-126); ANION GAP 9 (5-19); ASPARTATE AMINO TRANSFERASE 20 U/L (17-59); BILIRUBIN,DIRECT 0.2 mg/dL (0.0-0.4); BILIRUBIN,TOTAL 0.4 mg/dL (0.2-1.3); BLOOD UREA NITROGEN 17 mg/dL (7-20); CALCIUM 8.9 mg/dL (8.4-10.2); CARBON DIOXIDE 26 mmol/L (22-30); CHLORIDE 104 mmol/L (98-107); GLUCOSE 74 mg/dL (75-110); POTASSIUM 4.5 mmol/L (3.6-5.0); SODIUM 139.3 mmol/L (137-145)
== END ==
LOC: OD 12:51
PROVIDERS: ATTEND Family Medicine Geriatric Medicine
DX: J44.9 Chronic obstructive pulmonary disease, unspecified (principal); Z79.899 Other long term (current) drug therapy
CPT/HCPCS: 36415; 80053; 85025

== ENCOUNTER → 2017-08-20 | Outpatient (CLI) | payer MEDICARE, BC | LOC: OD 11:15 | PROVIDERS: ATTEND Internal Medicine | DX: C90.02 Multiple myeloma in relapse (principal); C40.00 Malignant neoplasm of scapula and long bones of unspecified upper limb; D50.9 Iron deficiency anemia, unspecified | CPT/HCPCS: 36415; 86850; 86900; 86901 ==

== ENCOUNTER 2017-09-16 15:41 | Observation (INO) | payer MEDICARE, BC ==
[2017-09-16] MEDS ORDERED: PROMETHAZINE HCL INJ 25 MG/1 ML VIAL IV PRN (16:57)
[2017-09-16] MEDS ORDERED: ONDANSETRON 4 MG TAB.RAPDIS PO PRN (16:58)
[2017-09-16] MEDS ORDERED: OXYCODONE HCL IR 5 MG TABLET PO PRN (16:59)
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
[2017-09-16] MEDS: LANSOPRAZOLE 30 MG TAB.RAP.DR PO SCH (17:58)
[2017-09-16 18:08] LABS: HEMATOCRIT 29.3 % (37.9-51.0); HEMOGLOBIN 10.2 g/dL (13.5-17.0); MEAN CORPUSCULAR HEMOGLOBIN 29.8 pg (27.0-33.4); MEAN CORPUSCULAR HGB CONC 34.9 g/dL (32.0-36.0); MEAN CORPUSCULAR VOLUME 85 fl (80-97); PLATELET COUNT 134 10^3/uL (150-450); RED BLOOD COUNT 3.44 10^6/uL (4.35-5.55); RED CELL DISTRIBUTION WIDTH 14.5 % (11.5-14.0)
[2017-09-16 18:14] LABS: BLOOD UREA NITROGEN 19 mg/dL (7-20); CALCIUM 7.9 mg/dL (8.4-10.2); GLUCOSE 81 mg/dL (75-110)
[2017-09-16] MEDS: 1/2 NORMAL SALINE 1,000 ML IV PRN (18:16)
[2017-09-16 18:26] LABS: WHITE BLOOD COUNT 1.9 10^3/uL (4.0-10.5)
[2017-09-16 18:27] LABS: ANION GAP 3 (5-19); CARBON DIOXIDE 26 mmol/L (22-30); CHLORIDE 112 mmol/L (98-107); POTASSIUM 4.2 mmol/L (3.6-5.0); SODIUM 141.4 mmol/L (137-145)
[2017-09-16 18:28] LABS: ABSOLUTE LYMPHOCYTES# (MANUAL) 1.1 10^3/uL (0.5-4.7); ABSOLUTE MONOCYTES # (MANUAL) 0.5 10^3/uL (0.1-1.4); ABSOLUTE NEUTROPHILS# (MANUAL) 0.3 10^3/uL (1.7-8.2); BASOPHILS % (MANUAL) 0 % (0-2); EOSINOPHILS % (MANUAL) 2 % (0-6); LYMPHOCYTES % (MANUAL) 58 % (13-45); MONOCYTES % (MANUAL) 26 % (3-13); SEGMENTED NEUTROPHILS % (MAN) 14 % (42-78); TOTAL CELLS COUNTED 50
[2017-09-16 18:30] LABS: ANISOCYTOSIS SLIGHT; OVALOCYTES SLIGHT; PLATELET COMMENT DECREASED; TOXIC GRANULATION SLIGHT
[2017-09-16] MEDS ORDERED: FENTANYL 100 MCG/HR PATCH.TD72 TD SCH (19:00)
[2017-09-16] MEDS ORDERED: TAMSULOSIN HCL 0.4 MG CAP.SR.24H PO SCH (22:00)
[2017-09-17] MEDS: 1/2 NORMAL SALINE 1,000 ML IV PRN (03:24)
[2017-09-17] MEDS: LANSOPRAZOLE 30 MG TAB.RAP.DR PO SCH (06:08)
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
[2017-09-17] MEDS ORDERED: MEGESTROL ACETATE SUSP 400 MG/10 ML UDCUP PO SCH (10:00)
[2017-09-17] MEDS ORDERED: ENOXAPARIN SODIUM INJ 40 MG/0.4 ML DISP.SYRIN SUBCUT SCH (10:00)
[2017-09-17] MEDS ORDERED: TIOTROPIUM BROMIDE DPI 5 CAP/KIT (18 MCG/CAP) IH SCH (10:00)
[2017-09-17 12:29] VITALS: BP 108/57
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
[2017-09-18 11:43] LABS: PATH REVIEW PATHOLOGIST REVIEWED
[2017-09-19] MEDS ORDERED: FENTANYL 100 MCG/HR PATCH.TD72 TD SCH (11:00)
== END 2017-09-17 13:21 | disposition home or self-care (01) ==
LOC: 4W 15:41
PROVIDERS: ADMIT Student in an Organized Health Care Education/Training Program; ATTEND Student in an Organized Health Care Education/Training Program
DX: N17.8 Other acute kidney failure (principal); D70.1 Agranulocytosis secondary to cancer chemotherapy; T45.1X5A Adverse effect of antineoplastic and immunosuppressive drugs, initial encounter; C90.00 Multiple myeloma not having achieved remission; R63.0 Anorexia; K59.00 Constipation, unspecified; R51 Headache; E86.0 Dehydration; R53.1 Weakness; R11.0 Nausea; R53.81 Other malaise; R63.4 Abnormal weight loss; Z68.26 Body mass index [BMI] 26.0-26.9, adult; Z79.891 Long term (current) use of opiate analgesic; Z79.899 Other long term (current) drug therapy; Z90.49 Acquired absence of other specified parts of digestive tract; Z98.890 Other specified postprocedural states; Z87.891 Personal history of nicotine dependence; Z79.82 Long term (current) use of aspirin
CPT/HCPCS: 36415; 83735; 85025; 80048; 97116; 97163; G0378 ×2; G0379; A9270 ×5; J3490 ×2; J1650; J2550; G8978; G8979; G8980; S0119

== ENCOUNTER → 2017-11-12 | Outpatient (CLI) | payer MEDICARE, BC ==
--- NOTE | 2017-11-12 17:39 | RADIOLOGY REPORT (SQ) ---
EXAM DESCRIPTION: CHEST 2 VIEWS COMPLETED DATE/TIME: 11/12/2017 5:00 pm REASON FOR STUDY: R06.02 SOB COMPARISON: 06/04/2016 EXAM PARAMETERS: NUMBER OF VIEWS: two views TECHNIQUE: Digital Frontal and Lateral radiographic views of the chest acquired. RADIATION DOSE: NA LIMITATIONS: none FINDINGS: LUNGS AND PLEURA: No opacities, masses or pneumothorax. No pleural effusion. MEDIASTINUM AND HILAR STRUCTURES: No masses or contour abnormalities. HEART AND VASCULAR STRUCTURES: Heart normal size. No evidence for failure. BONES: Old rib fractures. HARDWARE: None in the chest. OTHER: No other significant finding. IMPRESSION: Old rib fractures with no acute cardiopulmonary disease. TECHNICAL DOCUMENTATION: JOB ID: [id number] [employer]- All Rights Reserved Reading location - IP/workstation name: [email or web address]
== END ==
LOC: RAD 16:43
PROVIDERS: ATTEND Internal Medicine
DX: R06.02 Shortness of breath (principal); Z87.81 Personal history of (healed) traumatic fracture
CPT/HCPCS: 71046

== ENCOUNTER → 2018-01-19 | Outpatient (CLI) | payer MEDICARE, BC ==
--- NOTE | 2018-01-19 15:52 | RADIOLOGY REPORT (SQ) ---
EXAM DESCRIPTION: SHOULDER RIGHT 2 OR MORE VIEWS COMPLETED DATE/TIME: 01/19/2018 3:05 pm REASON FOR STUDY: RT SHOULDER PAIN E03.9 HYPOTHYROIDISM, UNSPECIFIED COMPARISON: None. NUMBER OF VIEWS: Three views. TECHNIQUE: Internal rotation, external rotation, and Y view images acquired of the right shoulder. LIMITATIONS: None. FINDINGS: MINERALIZATION: Normal. BONES: No acute fracture or dislocation. No worrisome bone lesions. JOINTS: Normal glenohumeral joint alignment. No widening at the acromioclavicular joint. VISUALIZED LUNGS AND RIBS: Multiple old healed right rib fractures, old medial clavicle fracture SOFT TISSUES: No radiopaque foreign body. OTHER: No other significant finding. IMPRESSION: No acute fracture or malalignment. Multiple old right upper rib and medial clavicle fra ctures. TECHNICAL DOCUMENTATION: JOB ID: [id number] [employer]- All Rights Reserved Reading location - IP/workstation name: [email or web address]
[2018-01-19 15:57] LABS: CHOLESTEROL 181.98 mg/dL (0-200); TRIGLYCERIDES 122 mg/dL (<150)
[2018-01-19 16:12] LABS: DIRECT LDL 98 mg/dL (<100)
== END ==
LOC: OD 14:26
PROVIDERS: ATTEND Internal Medicine
DX: E03.9 Hypothyroidism, unspecified (principal); E78.5 Hyperlipidemia, unspecified; M25.511 Pain in right shoulder; Z87.81 Personal history of (healed) traumatic fracture
CPT/HCPCS: 36415; 80061; 84443

== ENCOUNTER 2018-01-24 10:03 | Emergency (ER) | payer MEDICARE, BC ==
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
[2018-01-24] MEDS ORDERED: NORMAL SALINE 1000 ML 1,000 ML IV ONE (10:54)
--- NOTE | 2018-01-24 10:55 | RADIOLOGY REPORT (SQ) ---
EXAM DESCRIPTION: ACUTE ABDOMEN SERIES COMPLETED DATE/TIME: 01/24/2018 10:45 am REASON FOR STUDY: 14; pain and constipation COMPARISON: None. NUMBER OF VIEWS: Three views. TECHNIQUE: Frontal chest, supine abdomen and upright/decubitus abdomen radiographic images acquired. LIMITATIONS: None. FINDINGS: CHEST: Lungs clear of infiltrates. FREE AIR: None. No abnormal gas collections. BOWEL GAS PATTERN: Mild small bowel dilation. No air-fluid levels. CALCIFICATIONS: No suspicious calcifications. HARDWARE: Surgical clips. SOFT TISSUES: No gross mass or suggestion of organomegaly. BONES: No acute fracture. Old rib fractures. No worrisome bone lesions. OTHER: No other significant finding. IMPRESSION: MILD SMALL BOWEL DILATION. POSSIBLE MILD ILEUS. NO OBSTRUCTIVE CHANGES. TECHNICAL DOCUMENTATION: JOB ID: [id number] [employer]- All Rights Reserved Reading location - IP/workstation name: [email or web address]
[2018-01-24 11:42] LABS: ABSOLUTE BASOPHILS # (AUTO) 0.1 10^3/uL (0.0-0.2); ABSOLUTE LYMPHOCYTES (AUTO) 1.7 10^3/uL (0.5-4.7); ABSOLUTE MONOCYTES (AUTO) 0.4 10^3/uL (0.1-1.4); ABSOLUTE NEUT (AUTO) 4.7 10^3/uL (1.7-8.2); BASOPHILS % (AUTO) 0.8 % (0-2); EOSINOPHILS % (AUTO) 0.6 % (0-6); HEMATOCRIT 39.1 % (37.9-51.0); HEMOGLOBIN 13.4 g/dL (13.5-17.0); LYMPHOCYTES % (AUTO) 24.8 % (13-45); MEAN CORPUSCULAR HEMOGLOBIN 30.1 pg (27.0-33.4); MEAN CORPUSCULAR HGB CONC 34.2 g/dL (32.0-36.0); MEAN CORPUSCULAR VOLUME 88 fl (80-97); MONOCYTES % (AUTO) 5.7 % (3-13); PLATELET COUNT 177 10^3/uL (150-450); RED BLOOD COUNT 4.44 10^6/uL (4.35-5.55); SEGMENTED NEUTROPHILS % (AUTO) 68.1 % (42-78); TOTAL CELLS COUNTED % (AUTO) 100 %; WHITE BLOOD COUNT 6.9 10^3/uL (4.0-10.5)
[2018-01-24 12:02] LABS: ALANINE AMINOTRANSFERASE 17 U/L (21-72); ALBUMIN 4.4 g/dL (3.5-5.0); ALKALINE PHOSPHATASE 42 U/L (38-126); ANION GAP 13 (5-19); ASPARTATE AMINO TRANSFERASE 24 U/L (17-59); BILIRUBIN,DIRECT 0.3 mg/dL (0.0-0.4); BILIRUBIN,TOTAL 0.7 mg/dL (0.2-1.3); BLOOD UREA NITROGEN 14 mg/dL (7-20); CALCIUM 9.4 mg/dL (8.4-10.2); CARBON DIOXIDE 23 mmol/L (22-30); CHLORIDE 109 mmol/L (98-107); GLUCOSE 109 mg/dL (75-110); POTASSIUM 4.2 mmol/L (3.6-5.0); SODIUM 144.8 mmol/L (137-145); TOTAL PROTEIN 7.3 g/dL (6.3-8.2)
[2018-01-24] MEDS ORDERED: ACETAMINOPHEN 325 MG TABLET PO ONE (12:49)
[2018-01-24 13:55] LABS: APPEARANCE,URINE CLEAR; BILIRUBIN,URINE NEGATIVE (NEGATIVE); CALCIUM OXALATE CRYSTALS,URINE RARE /HPF; COLOR,URINE YELLOW; GLUCOSE, URINE NEGATIVE (NEGATIVE); KETONES,URINE NEGATIVE (NEGATIVE); LEUKOCYTE ESTERASE,URINE NEGATIVE (NEGATIVE); NITRITE,URINE NEGATIVE (NEGATIVE); PROTEIN,URINE NEGATIVE (NEGATIVE); URINE SPECIFIC GRAVITY 1.019; UROBILINOGEN,URINE NEGATIVE mg/dL (<2.0)
--- NOTE | 2018-01-24 14:22 | RADIOLOGY REPORT (SQ) ---
EXAM DESCRIPTION: CT ABD/PELVIS WITH IV ORAL COMPLETED DATE/TIME: 01/24/2018 2:09 pm REASON FOR STUDY: 14; abdominal pain; constipation; MM COMPARISON: 06/19/2017 TECHNIQUE: CT scan of the abdomen and pelvis performed using helical scanning technique with dynamic intravenous contrast injection and oral contrast. Images reviewed with lung, soft tissue, and bone w indows. Reconstructed coronal and sagittal MPR images reviewed. Delayed images for evaluation of the urinary system also acquired. All images stored on PACS. All CT scanners at this facility use dose modulation, iterative reconstruction, and/or weight based d osing when appropriate to reduce radiation dose to as low as reasonably achievable (ALARA). [facility]: Dose Right [facility]: CareDose [facility]: Dose Right [facility]: Teradose 4D [facility]: Split CONTRAST TYPE AND DOSE: contrast/concentration: Isovue 350.00 mg/ml; Total Contrast Delivered: 97.0 ml; Total Saline Delivered: 72.0 ml RENAL FUNCTION: GFR > 60. RADIATION DOSE: CT Rad equipment meets quality standard of care and radiation dose reduction techniq ues were employed. CTDIvol: 15.2 - 20.0 mGy. DLP: 1726 mGy-cm.. LIMITATIONS: None. FINDINGS: LOWER CHEST: No significant findings. LIVER: Normal size. No enhancing masses. No dilated ducts. SPLEEN: Normal size. No focal lesions. PANCREAS: No masses identified. No significant calcifications. No adjacent inflammation or peripancre atic fluid collections. Pancreatic duct not dilated. GALLBLADDER: Surgically absent. ADRENAL GLANDS: No significant masses. RIGHT KIDNEY AND URETER: Multiple cysts identified. No solid masses identified. No calcified stones. No hydronephrosis or hydroureter. LEFT KIDNEY AND URETER: Multiple cysts identified. No solid masses identified. No calcified stones. N o hydronephrosis or hydroureter. AORTA AND VESSELS: No aneurysm. No dissection. Renal arteries, SMA, celiac without significant stenos is. RETROPERITONEUM: No bulky retroperitoneal adenopathy. BOWEL AND PERITONEAL CAVITY: No obstruction or inflammatory changes. No free fluid. APPENDIX: Normal. PELVIS: Small left inguinal seroma, stable. No free fluid. Unremarkable bladder. ABDOMINAL WALL: No masses. No hernias. BONES: No acute findings. Multiple scattered lytic lesions. OTHER: No other significant finding. IMPRESSION: NO ACUTE FINDINGS IN THE ABDOMEN OR PELVIS ON CT SCAN WITH IV CONTRAST. TECHNICAL DOCUMENTATION: JOB ID: [id number] Quality ID # [id number]: Final reports with documentation of one or more dose reduction techniques (e.g., Au tomated exposure control, adjustment of the mA and/or kV according to patient size, use of iterative reconstruction technique) 2010 [employer]- All Rights Reserved Reading location - IP/workstation name: [employer]
[2018-01-24] MEDS ORDERED: NA PHOS,M-B/NA PHOS,DI-BA (ADULT) 133 ML ENEMA PR ONE (15:03)
[2018-01-24 16:37] VITALS: BP 122/77
== END 2018-01-24 16:37 | disposition home or self-care (01) ==
LOC: ER 10:03
DX: K59.00 Constipation, unspecified (principal); R10.30 Lower abdominal pain, unspecified; Z88.3 Allergy status to other anti-infective agents
CPT/HCPCS: 99284; 96360; 36415; 83690; 85025; 80053; 81001; 74022; 74177; A9270 ×2; J7030; J3490

== ENCOUNTER → 2018-03-02 | Outpatient (CLI) | payer MEDICARE, BC ==
--- NOTE | 2018-03-02 13:55 | RADIOLOGY REPORT (SQ) ---
EXAM DESCRIPTION: U/S RETROPERITON (RENAL/AORTA) COMPLETED DATE/TIME: 03/02/2018 7:50 am REASON FOR STUDY: AAA (I71.4) I74.4 EMBOLISM AND THROMBOSIS OF ARTERIES OF EXTREMITIES, UN C90.00 MULTIPLE MYELOMA NOT HAVING ACHIEVED REMISSION M25.511 PAIN IN RIGHT SHOULDER COMPARISON: None. TECHNIQUE: Static and dynamic grayscale images acquired of the aorta and stored on PACs. Selected co torrey Doppler and spectral images recorded. LIMITATIONS: None. FINDINGS: AORTIC CALIBER MAXIMAL PROXIMAL: 1.7 cm. MID: 1.4 cm. DISTAL: 1.2 cm. ILIAC DIAMETER RIGHT: 0.8 cm. LEFT: 0.7 cm. OTHER: No other significant finding. IMPRESSION: NO ABDOMINAL AORTIC ANEURYSM. COMMENT: Aortic aneurysm imaging followup: Not required *Based upon the Society for Vascular Surgery Guidelines: J Vasc Surg. 2009 Oct;50(4 Suppl):S2-49 *For aortas of maximum diameter of 2.6-2.9 cm meeting the criteria for AAA (?1.5 x proximal normal se gment) TECHNICAL DOCUMENTATION: JOB ID: [id number] [employer]- All Rights Reserved Reading location - IP/workstation name: [email or web address]
--- NOTE | 2018-03-02 14:02 | RADIOLOGY REPORT (SQ) ---
EXAM DESCRIPTION: NM WHOLE BODY BONE SCAN COMPLETED DATE/TIME: 03/02/2018 12:18 pm REASON FOR STUDY: MULTIPLE MYELOMA HAVING ACHIEVED REMISSION (C90.00), R SHOULDER PAIN (M25.5 I74.4 EMBOLISM AND THROMBOSIS OF ARTERIES OF EXTREMITIES, UN C90.00 MULTIPLE MYELOMA NOT HAVING ACHIEVED REMISSION M25.511 PAIN IN RIGHT SHOULDER COMPARISON: Bone scan 07/27/2014. CT abdomen pelvis 01/24/2018. Right shoulder radiographs 8 RADIONUCLIDE AND DOSE: 2 millicuries Tc99m HDP. The route of agent administration: Intravenous. ADDITIONAL DRUGS AND DOSES: None. TECHNIQUE: Routine delayed images at 3 hours post radionuclide injection acquired of the bony skelet on including anterior and posterior whole-body projections and additional focused images as needed. LIMITATIONS: None. FINDINGS: BONES: There are stable areas of uptake in the right lower ribs numbers 9, 10, and 11. Th ere is stable uptake in the lateral left 9th rib. There is mild degenerative uptake at the sternocla vicular joints and at the sternomanubrial joint. There is uptake at the tip of the 8 scapula likely is secondary to superimposition of ribs and scapula. KIDNEYS: Symmetric excretion without obstruction. OTHER: No other significant finding. IMPRESSION: There are stable areas of uptake as described. No new findings are appreciated. COMMENT: Quality measure 147: Current bone scan is compared with any available plain radiographs, p rior bone scans, and CT/MRI. TECHNICAL DOCUMENTATION: JOB ID: [id number] [employer]- All Rights Reserved Reading location - IP/workstation name: [email or web address]
== END ==
LOC: RAD 07:12
PROVIDERS: ATTEND Internal Medicine
DX: I71.4 Abdominal aortic aneurysm, without rupture (principal); I74.4 Embolism and thrombosis of arteries of extremities, unspecified; C90.00 Multiple myeloma not having achieved remission; M25.511 Pain in right shoulder; G89.29 Other chronic pain; R10.30 Lower abdominal pain, unspecified
CPT/HCPCS: 76770; 78306; A9561

== ENCOUNTER → 2018-03-23 | Outpatient (CLI) | payer MEDICARE, BC ==
[2018-03-23 12:08] LABS: CHOLESTEROL 221.84 mg/dL (0-200); TRIGLYCERIDES 98 mg/dL (<150)
[2018-03-23 12:19] LABS: DIRECT LDL 134 mg/dL (<100)
== END ==
LOC: OD 10:58
PROVIDERS: ATTEND Internal Medicine
DX: E78.5 Hyperlipidemia, unspecified (principal); N40.1 Benign prostatic hyperplasia with lower urinary tract symptoms
CPT/HCPCS: 36415; 80061; 84153

== ENCOUNTER → 2018-07-29 | Outpatient (CLI) | payer MEDICARE, BC ==
--- NOTE | 2018-07-29 14:34 | RADIOLOGY REPORT (SQ) ---
EXAM DESCRIPTION: CT ABD/PELVIS NO ORAL OR IV COMPLETED DATE/TIME: 07/29/2018 10:14 am REASON FOR STUDY: R19.09 OTHER INTRA-ABDOMINAL AND PELVIC SWELLING, MASS AND LUMP R19.07 GENERALIZE D INTRA-ABD AND PELVIC SWELLING, MASS AND L R19.09 OTHER INTRA-ABDOMINAL AND PELVIC SWELLING, MASS A ND L COMPARISON: 01/24/2018 TECHNIQUE: CT scan of the abdomen and pelvis performed without intravenous or oral contrast. Images reviewed with lung, soft tissue, and bone windows. Reconstructed coronal and sagittal MPR images revi ewed. All images stored on PACS. All CT scanners at this facility use dose modulation, iterative reconstruction, and/or weight based d osing when appropriate to reduce radiation dose to as low as reasonably achievable (ALARA). [facility]: Dose Right [facility]: CareDose [facility]: Dose Right [facility]: Teradose 4D [facility]: Smart Wedivite RADIATION DOSE: CT Rad equipment meets quality standard of care and radiation dose reduction techniq ues were employed. CTDIvol: 14.1 mGy. DLP: 690 mGy-cm.mGy. LIMITATIONS: None. FINDINGS: LOWER CHEST: Emphysematous change. No focal consolidation. Coronary atherosclerosis. NON-CONTRASTED LIVER, SPLEEN, ADRENALS: Evaluation limited by lack of IV contrast. No identified sign ificant masses. Scattered calcified splenic granuloma. PANCREAS: No masses. No peripancreatic inflammatory changes. GALLBLADDER: Prior cholecystectomy. RIGHT KIDNEY AND URETER: No suspicious masses. Assessment limited by lack of IV contrast. Unchanged cortical cyst. No nephrolithiasis. No hydronephrosis or hydroureter. LEFT KIDNEY AND URETER: No suspicious masses. Assessment limited by lack of IV contrast. Unchanged cortical cyst. No nephrolithiasis. No hydronephrosis or hydroureter. AORTA AND RETROPERITONEUM: No aneurysm. No retroperitoneal masses or adenopathy. BOWEL AND PERITONEAL CAVITY: No obvious masses or inflammatory changes. No free fluid. APPENDIX: Normal. PELVIS, BLADDER, AND ABDOMINAL WALL:Unremarkable urinary bladder. No pelvic free fluid. No pelvic l ymphadenopathy. Unchanged round cystic lesion within the anterior left pelvic subcutaneous tissues measuring up to 3.3 cm, likely seroma. BONES: Unchanged dysmorphic appearance of the left iliac wing, likely related to prior trauma. There are multiple lucent lesions throughout the visualized axial skeleton compatible with given history o f multiple myeloma and not significantly changed from prior. Old posterior right-sided rib fractures . OTHER: No other significant finding. IMPRESSION: 1. No evidence of acute intra-abdominal/pelvic process. 2. Multiple stable lytic lesions throughout the visualized axial skeleton compatible with given hist ory of multiple myeloma. COMMENT: Quality ID # 436: Final reports with documentation of one or more dose reduction techniques (e.g., Automated exposure control, adjustment of the mA and/or kV according to patient size, use of iterative reconstruction technique) TECHNICAL DOCUMENTATION: JOB ID: [id number] [employer]- All Rights Reserved Reading location - IP/workstation name: [email or web address]-
== END ==
LOC: RAD 10:25
PROVIDERS: ATTEND Internal Medicine
DX: R19.07 Generalized intra-abdominal and pelvic swelling, mass and lump (principal)
CPT/HCPCS: 74176

== ENCOUNTER → 2019-01-19 | Outpatient (CLI) | payer MEDICARE, BC ==
--- NOTE | 2019-01-19 15:48 | RADIOLOGY REPORT (SQ) ---
EXAM DESCRIPTION: VENOUS UNILATERAL UPPER COMPLETED DATE/TIME: 01/19/2019 3:39 pm REASON FOR STUDY: RUE PAIN AND SWELLING M79.609 PAIN IN UNSPECIFIED LIMB M79.89 OTHER SPECIFIED SO FT TISSUE DISORDERS COMPARISON: None. TECHNIQUE: Dynamic and static devine scale and color images acquired of the right arm venous system. S elected spectral images acquired with additional compression and augmentation maneuvers. The contrala teral subclavian vein and internal jugular vein were also imaged. Images stored on PACS. LIMITATIONS: None. FINDINGS: INTERNAL JUGULAR VEIN: Normal phasicity, compression, augmentation. No visualized echogeni c material on devine scale. No defects on color images. Comparison opposite side normal. SUBCLAVIAN VEIN: Normal compression, augmentation. No visualized echogenic material on devine scale. No defects on color images. AXILLARY VEIN: Normal compression, augmentation. No visualized echogenic material on devine scale. No d efects on color images. BRACHIAL VEIN: Normal compression, augmentation. No visualized echogenic material on devine scale. No d efects on color images. BASILIC VEIN: Normal compression, augmentation. No visualized echogenic material on devine scale. No de fects on color images. CEPHALIC VEIN: Normal compression, augmentation. No visualized echogenic material on devine scale. No d efects on color images. OTHER: No other significant finding. IMPRESSION: NO EVIDENCE DVT OR SVT IN THE RIGHT ARM. TECHNICAL DOCUMENTATION: JOB ID: [id number] [employer]- All Rights Reserved Reading location - IP/workstation name: [email or web address]
== END ==
LOC: SP 14:54
PROVIDERS: ATTEND Internal Medicine
DX: M79.601 Pain in right arm (principal); M79.89 Other specified soft tissue disorders
CPT/HCPCS: 93971

== ENCOUNTER → 2019-02-11 | Outpatient (CLI) | payer MEDICARE, BC ==
--- NOTE | 2019-02-11 16:03 | RADIOLOGY REPORT (SQ) ---
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 LIMITATIONS: None. FINDINGS: AP CHEST: No bony findings. Lungs are clear. LATERAL SKULL: Multiple lytic lesions, stable. AP BOTH HUMERI: Multiple lytic lesions, stable. TWO-VIEW LUMBAR SPINE: No worrisome bone lesions. TWO-VIEW THORACIC SPINE: No worrisome bone lesions. AP PELVIS: No worrisome bone lesions. AP BOTH FEMURS: No worrisome bone lesions. OTHER: No other significant finding. IMPRESSION: Positive bone survey. No progression. Reading location - IP/workstation name: [email or web address]
== END ==
LOC: RAD 14:46
PROVIDERS: ATTEND Physician Assistant Medical
DX: C90.02 Multiple myeloma in relapse (principal)
CPT/HCPCS: 77075

== ENCOUNTER → 2019-02-19 | Outpatient (CLI) | payer MEDICARE, BC | LOC: RAD 13:44 | PROVIDERS: ATTEND Physician Assistant Medical | DX: M25.551 Pain in right hip (principal); C90.02 Multiple myeloma in relapse | CPT/HCPCS: 73723; A9576 ==

== ENCOUNTER → 2019-03-23 | Outpatient (CLI) | payer MEDICARE, BC ==
--- NOTE | 2019-03-23 13:18 | RADIOLOGY REPORT (SQ) ---
EXAM DESCRIPTION: MRI RT LOWER JOINT COMBO COMPLETED DATE/TIME: 03/23/2019 12:13 pm REASON FOR STUDY: PAIN IN RIGHT HIPS (M25.551), MULTIPLE MYELOMA IN RELAPSE (C90.02) C90.02 MULTIPL E MYELOMA IN RELAPSE COMPARISON: 02/19/2019 left hip MR. TECHNIQUE: Multiplanar imaging of the pelvis and right hip to include T1-weighted, postcontrast T1-w eighted, and T2-weighted images. CONTRAST TYPE AND DOSE: 20 mL Dotarem. RENAL FUNCTION: Not indicated. ACR Type II contrast agent associated with few, if any, unconfounded cases of NSF LIMITATIONS: None. FINDINGS: BONE MARROW: Marrow signal generally looks normal. No evidence of lytic or blastic bone l esion in the lower spine, pelvis or proximal femurs. No evidence of right hip AVN or fracture. SOFT TISSUES: No enhancing lesions about the right hip. No significant effusion. No regional muscle tear or bursitis or gross labral tear. OTHER: No intrapelvic pathology. As seen previously, T2 hyperintense left subcutaneous cyst suggeste d, stable. IMPRESSION: Negative right hip MRI without and with contrast. TECHNICAL DOCUMENTATION: JOB ID: [id number] [employer]- All Rights Reserved Reading location - IP/workstation name: [email or web address]
== END ==
LOC: RAD 10:56
PROVIDERS: ATTEND Physician Assistant Medical
DX: C90.02 Multiple myeloma in relapse (principal); M25.551 Pain in right hip
CPT/HCPCS: 73723; A9576

== ENCOUNTER → 2019-06-29 | Outpatient (CLI) | payer MEDICARE, BC ==
--- NOTE | 2019-06-29 16:30 | RADIOLOGY REPORT (SQ) ---
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 TECHNIQUE: Blood glucose level was verified. Above dose of FDG was injected intravenously. 2-D seg mented attenuation correction images were obtained through the entire body. Noncontrast CT images we re obtained for attenuation correction and fusion with emission images. CT images were performed wit hout oral or intravenous contrast and are not sensitive for parenchymal lesions. A series of overlap ping emission PET images were obtained. Images reviewed and manipulated at independent work station by the radiologist. Images stored on PACS. LIMITATIONS: None. FINDINGS: HEAD AND NECK: No areas of abnormal metabolic activity in the soft tissues of the head and neck. Specifically, no increased uptake over the hard palate is present worrisome for tumor recurre nce. CHEST: No areas of abnormal metabolic activity in the chest. ABDOMEN AND PELVIS: No areas of abnormal metabolic activity in the abdomen or pelvis. Expected physi ologic activity is present in the genitourinary system and bowel. LOWER EXTREMITIES: No areas of abnormal metabolic activity in the soft tissues of the lower extremiti es. BONES: No abnormal metabolic activity in the visualized skeleton. ADDITIONAL CT FINDINGS: There are changes of obstructive lung disease. Old left frontal craniotomy. Calcified carotid bifurcations. Post cholecystectomy. Castell left inguinal seroma non metabolic. Stable punctate lucencies in the bone marrow over the lumbar spine pelvis from known myeloma OTHER: No other significant findings. IMPRESSION: No significant hypermetabolic lesions as above TECHNICAL DOCUMENTATION: JOB ID: [id number] 2010 [employer]- All Rights Reserved Reading location - IP/workstation name: [id number]
== END ==
LOC: RAD 10:02
PROVIDERS: ATTEND Internal Medicine
DX: C90.02 Multiple myeloma in relapse (principal); C79.51 Secondary malignant neoplasm of bone
CPT/HCPCS: 78816; A9552

== ENCOUNTER → 2019-07-05 | Outpatient (CLI) | payer MEDICARE, BC ==
--- NOTE | 2019-07-05 16:22 | RADIOLOGY REPORT (SQ) ---
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 RADIATION DOSE: NA LIMITATIONS: none FINDINGS: LUNGS AND PLEURA: Mild hyperinflation. No opacities, masses or pneumothorax. No pleural e ffusion. MEDIASTINUM AND HILAR STRUCTURES: No masses or contour abnormalities. HEART AND VASCULAR STRUCTURES: Heart normal size. No evidence for failure. BONES: Old bilateral rib fractures. HARDWARE: None in the chest. OTHER: No other significant finding. IMPRESSION: NO ACUTE RADIOGRAPHIC FINDING IN THE CHEST. TECHNICAL DOCUMENTATION: JOB ID: [id number] 2010 [employer]- All Rights Reserved Reading location - IP/workstation name: [email or web address]
== END ==
LOC: RAD 15:31
PROVIDERS: ATTEND Internal Medicine
DX: C90.02 Multiple myeloma in relapse (principal); R06.02 Shortness of breath
CPT/HCPCS: 71046

== ENCOUNTER → 2019-07-07 | Outpatient (CLI) | payer MEDICARE, BC ==
--- NOTE | 2019-07-07 13:14 | RADIOLOGY REPORT (SQ) ---
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 Correlation: PET-CT 06/29/2019. TECHNIQUE: Multiplanar multisequence imaging of the soft tissues of the neck performed without contr ast. All images stored on PACS. LIMITATIONS: Artifact from metal plate and screws in the mandible. FINDINGS: SKULL BASE: Intact. MAJOR SALIVARY GLANDS: No solid or cystic masses. No inflammatory changes. LYMPHADENOPATHY: No adenopathy. MUCOSAL MASSES OR ASYMMETRY: No mucosal masses or asymmetry. LARYNX/CORDS: No abnormal findings. VASCULAR STRUCTURES: The major vessels are patent. LUNG APICES: Old nonunion proximal right clavicle fracture. BONES: See above. THYROID: Normal size. No masses. PARANASAL SINUSES: Clear. OTHER: No other significant finding. IMPRESSION: No evidence of local recurrence or metastatic disease. TECHNICAL DOCUMENTATION: JOB ID: [id number] 2010 [employer]- All Rights Reserved Reading location - IP/workstation name: [email or web address]
== END ==
LOC: RAD 07:51
PROVIDERS: ATTEND Internal Medicine
DX: C90.02 Multiple myeloma in relapse (principal); C79.51 Secondary malignant neoplasm of bone; M87.188 Osteonecrosis due to drugs, other site
CPT/HCPCS: 70540

== ENCOUNTER 2020-01-19 17:49 | Observation (INO) | payer MEDICARE, BC ==
[2020-01-19] MEDS ORDERED: ADENOSINE INJ/PF 6 MG/2 ML SDV IV ONE ×2 (18:25→18:30)
[2020-01-19] MEDS ORDERED: DILTIAZEM HCL INJ 25 MG/5 ML VIAL IV ONE (18:39)
[2020-01-19] MEDS ORDERED: DILTIAZEM HCL/D5W 125 MG/125 ML RTUINJ IV PRN ×2 (18:39→21:58)
--- NOTE | 2020-01-19 19:24 | RADIOLOGY REPORT (SQ) ---
EXAM DESCRIPTION: CHEST SINGLE VIEW IMAGES COMPLETED DATE/TIME: 01/19/2020 6:56 pm REASON FOR STUDY: a. flutter COMPARISON: 07/05/2019 TECHNIQUE: Single frontal radiographic view of the chest acquired. NUMBER OF VIEWS: One view. LIMITATIONS: None. FINDINGS: LUNGS AND PLEURA: No pneumothorax. No consolidation or pleural effusion. MEDIASTINUM AND HILAR STRUCTURES: Stable. HEART AND VASCULAR STRUCTURES: Stable. BONES: No acute findings. Multiple old bilateral rib fractures and right clavicle fracture. HARDWARE: None in the chest. OTHER: No other significant finding. IMPRESSION: NO ACUTE FINDINGS. TECHNICAL DOCUMENTATION: JOB ID: [id number] [place]-72 2010 [employer]- All Rights Reserved Reading location - IP/workstation name: [email or web address]
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
[2020-01-19 19:48] LABS: ABSOLUTE BASOPHILS # (AUTO) 0.1 10^3/uL (0.0-0.2); ABSOLUTE EOSINOPHILS # (AUTO) 0.1 10^3/uL (0.0-0.6); ABSOLUTE LYMPHOCYTES (AUTO) 1.9 10^3/uL (0.5-4.7); ABSOLUTE MONOCYTES (AUTO) 0.5 10^3/uL (0.1-1.4); BASOPHILS % (AUTO) 0.7 % (0-2); EOSINOPHILS % (AUTO) 0.7 % (0-6); HEMOGLOBIN 13.5 g/dL (13.5-17.0); LYMPHOCYTES % (AUTO) 22.7 % (13-45); MEAN CORPUSCULAR HEMOGLOBIN 31.5 pg (27.0-33.4); MEAN CORPUSCULAR HGB CONC 34.6 g/dL (32.0-36.0); MEAN CORPUSCULAR VOLUME 91 fl (80-97); MONOCYTES % (AUTO) 5.7 % (3-13); PLATELET COUNT 160 10^3/uL (150-450); RED BLOOD COUNT 4.29 10^6/uL (4.35-5.55); RED CELL DISTRIBUTION WIDTH 13.5 % (11.5-14.0); SEGMENTED NEUTROPHILS % (AUTO) 70.2 % (42-78); TOTAL CELLS COUNTED % (AUTO) 100 %; WHITE BLOOD COUNT 8.6 10^3/uL (4.0-10.5)
[2020-01-19 19:52] LABS: INTERNATIONAL RATION (INR) 0.98; PROTHROMBIN TIME 13.2 SEC (11.4-15.4)
[2020-01-19 19:53] LABS: PARTIAL THROMBOPLASTIN TIME 32.6 SEC (23.5-35.8)
[2020-01-19] MEDS ORDERED: DILTIAZEM HCL 30 MG TABLET PO ONE (19:54)
[2020-01-19 20:04] LABS: ALCOHOL < 10 mg/dL (NONE DETECTED)
[2020-01-19 20:18] LABS: ALBUMIN 4.1 g/dL (3.5-5.0); ALKALINE PHOSPHATASE 59 U/L (38-126); ANION GAP 8 (5-19); ASPARTATE AMINO TRANSFERASE 27 U/L (17-59); BILIRUBIN,DIRECT 0.2 mg/dL (0.0-0.4); BILIRUBIN,TOTAL 0.7 mg/dL (0.2-1.3); BLOOD UREA NITROGEN 17 mg/dL (7-20); CALCIUM 8.9 mg/dL (8.4-10.2); CARBON DIOXIDE 24 mmol/L (22-30); CHLORIDE 107 mmol/L (98-107); GLUCOSE 99 mg/dL (75-110); POTASSIUM 4.3 mmol/L (3.6-5.0); TOTAL PROTEIN 6.7 g/dL (6.3-8.2)
[2020-01-19 20:19] LABS: NT PRO BNP 2390 pg/mL (<450)
[2020-01-19 20:20] LABS: TROPONIN I < 0.012 ng/mL
[2020-01-19] MEDS ORDERED: ACETAMINOPHEN 325 MG TABLET PO PRN (21:58)
[2020-01-19] MEDS ORDERED: ONDANSETRON 4 MG TAB.RAPDIS PO PRN (21:58)
[2020-01-19] MEDS ORDERED: ENOXAPARIN SODIUM INJ 100 MG/1 ML DISP.SYRIN SUBCUT ONE (22:19)
[2020-01-19] MEDS ORDERED: HYDROMORPHONE HCL 2 MG TABLET PO PRN (22:29)
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
[2020-01-19] MEDS ORDERED: APIXABAN 5 MG TABLET PO ONE (23:00)
[2020-01-20] MEDS ORDERED: METOPROLOL TARTRATE PF/INJ 5 MG/5 ML SDV IV ONE (01:10)
[2020-01-20] MEDS ORDERED: APIXABAN 5 MG TABLET PO ONE (01:30)
[2020-01-20 05:33] LABS: ABSOLUTE EOSINOPHILS # (AUTO) 0.1 10^3/uL (0.0-0.6); ABSOLUTE LYMPHOCYTES (AUTO) 2.5 10^3/uL (0.5-4.7); ABSOLUTE MONOCYTES (AUTO) 0.7 10^3/uL (0.1-1.4); ABSOLUTE NEUT (AUTO) 4.5 10^3/uL (1.7-8.2); BASOPHILS % (AUTO) 0.4 % (0-2); EOSINOPHILS % (AUTO) 1.5 % (0-6); HEMOGLOBIN 12.5 g/dL (13.5-17.0); LYMPHOCYTES % (AUTO) 32.1 % (13-45); MEAN CORPUSCULAR HEMOGLOBIN 31.5 pg (27.0-33.4); MEAN CORPUSCULAR HGB CONC 34.8 g/dL (32.0-36.0); MEAN CORPUSCULAR VOLUME 91 fl (80-97); MONOCYTES % (AUTO) 8.6 % (3-13); PLATELET COUNT 167 10^3/uL (150-450); RED BLOOD COUNT 3.98 10^6/uL (4.35-5.55); RED CELL DISTRIBUTION WIDTH 13.4 % (11.5-14.0); SEGMENTED NEUTROPHILS % (AUTO) 57.4 % (42-78); TOTAL CELLS COUNTED % (AUTO) 100 %; WHITE BLOOD COUNT 7.9 10^3/uL (4.0-10.5)
[2020-01-20 05:54] LABS: ALBUMIN 3.5 g/dL (3.5-5.0); ALKALINE PHOSPHATASE 50 U/L (38-126); ANION GAP 8 (5-19); ASPARTATE AMINO TRANSFERASE 24 U/L (17-59); BILIRUBIN,DIRECT 0.2 mg/dL (0.0-0.4); BILIRUBIN,TOTAL 0.6 mg/dL (0.2-1.3); BLOOD UREA NITROGEN 18 mg/dL (7-20); CALCIUM 8.8 mg/dL (8.4-10.2); CARBON DIOXIDE 25 mmol/L (22-30); CHLORIDE 108 mmol/L (98-107); GLUCOSE 99 mg/dL (75-110); POTASSIUM 3.9 mmol/L (3.6-5.0); TOTAL PROTEIN 5.9 g/dL (6.3-8.2)
[2020-01-20] MEDS: METOPROLOL TARTRATE 50 MG TABLET PO SCH ×4 (06:02→17:51)
--- NOTE | 2020-01-20 08:28 | ADVANCED CARE ---
- Diagnosis (1) New onset atrial flutter Diagnosis Current: Yes (2) Multiple myeloma Diagnosis Current: Yes (3) BPH (benign prostatic hyperplasia) Diagnosis Current: Yes (4) Elevated brain natriuretic peptide (BNP) level Diagnosis Current: Yes Attendance: patient and son in law Resuscitation Status: Full Code Discussion: Patient initially very resistant to being admitted and stated that he does not like to stay long in the hospital because he does not consider that quality of life. He would like to be discharge early and would not want to stay in the hospital any longer than he should according to him. He stated that he wants to be FULL code and named her daughter Marie as her HCPOA. He also stated that Document(s) Completed: none Time Spent: >16 min < 30 min
--- NOTE | 2020-01-20 08:53 | EKG REPORT ---
SEVERITY:- ABNORMAL ECG - ATRIAL FLUTTER/FIBRILLATION, A-RATE 303 : Confirmed by: Jaky Sethi MD 20-Jan-2020 08:52:38
--- NOTE | 2020-01-20 08:53 | EKG REPORT ---
SEVERITY:- ABNORMAL ECG - SINUS TACHYCARDIA FIRST DEGREE AV BLOCK LEFT ATRIAL ABNORMALITY LOW VOLTAGE IN FRONTAL LEADS BORDERLINE PROLONGED QT INTERVAL : Confirmed by: Jaky Sethi MD 20-Jan-2020 08:53:06
[2020-01-20] MEDS: DOCUSATE SODIUM 100 MG CAPSULE PO SCH ×2 (09:17→17:58)
[2020-01-20 09:35] LABS: APPEARANCE,URINE CLEAR; BILIRUBIN,URINE NEGATIVE (NEGATIVE); COLOR,URINE YELLOW; GLUCOSE, URINE NEGATIVE (NEGATIVE); KETONES,URINE NEGATIVE (NEGATIVE); LEUKOCYTE ESTERASE,URINE NEGATIVE (NEGATIVE); NITRITE,URINE NEGATIVE (NEGATIVE); PROTEIN,URINE NEGATIVE (NEGATIVE); URINE SPECIFIC GRAVITY 1.011; UROBILINOGEN,URINE NEGATIVE mg/dL (<2.0)
[2020-01-20] MEDS ORDERED: APIXABAN 5 MG TABLET PO SCH ×2 (10:00)
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
[2020-01-20 16:48] LABS: APPEARANCE,URINE CLEAR; BILIRUBIN,URINE NEGATIVE (NEGATIVE); COLOR,URINE YELLOW; GLUCOSE, URINE NEGATIVE (NEGATIVE); KETONES,URINE NEGATIVE (NEGATIVE); LEUKOCYTE ESTERASE,URINE NEGATIVE (NEGATIVE); NITRITE,URINE NEGATIVE (NEGATIVE); PROTEIN,URINE NEGATIVE (NEGATIVE); URINE SPECIFIC GRAVITY 1.016; UROBILINOGEN,URINE NEGATIVE mg/dL (<2.0)
--- NOTE | 2020-01-20 17:47 | RADIOLOGY REPORT (SQ) ---
EXAM DESCRIPTION: U/S RETROPERITON (RENAL/AORTA) IMAGES COMPLETED DATE/TIME: 01/20/2020 5:22 pm REASON FOR STUDY: pain, hematuria, dysuria (stone vs obstruction) I48.91 UNSPECIFIED ATRIAL FIBRILL ATION COMPARISON: PET-CT 06/29/2019 TECHNIQUE: Dynamic and static grayscale images acquired of the kidneys and bladder and recorded on P ACS. Additional selected color Doppler and spectral images recorded. LIMITATIONS: None. FINDINGS: RIGHT KIDNEY: Atrophic, 9.2 cm length. Increased cortical echogenicity. Multiple cysts, l argest 1 cm. No hydronephrosis. No calcifications identified. LEFT KIDNEY: Atrophic, 9.3 cm length. . Increased cortical echogenicity. 3.7 cm upper pole cyst. N o hydronephrosis. No calcifications identified. BLADDER: No masses. OTHER: No other significant finding. IMPRESSION: CHRONIC MEDICAL RENAL DISEASE. NO HYDRONEPHROSIS. TECHNICAL DOCUMENTATION: JOB ID: [id number] [id number] 2010 [employer]- All Rights Reserved Reading location - IP/workstation name: [email or web address]
[2020-01-20] MEDS ORDERED: TAMSULOSIN HCL 0.4 MG CAP.SR.24H PO SCH (18:00)
[2020-01-20 18:26] VITALS: BP 123/91
--- NOTE | 2020-01-20 18:38 | PDOC DISCHARGE SUMMARY ---
Impression - Admit/DC Date/PCP Admission Date/Primary Care Provider: 01/19/20 21:11 SINA ARELLANO MD Discharge Date: 01/20/20 - Assessment Summary: KRISTEN LARKIN is a 75 year old male with history of paroxysmal atrial fibrillation, lower extremity edema, chronic tobacco use in the past, COPD and multiple myeloma status post stem cell therapy who noticed palpitations associated with some chest discomfort as well as lightheadedness and diaphoresis after walking up a hill a few yards. In the emergency room he was found to be in SVT and was given 2 doses of adenosine revealing atrial fibrillation/atrial flutter. All his symptoms resolved spontaneously and he converted spontaneously from atrial flutter to normal sinus rhythm. Today, he feels 100% better and denies chest pain, shortness of breath, PND, lower extremity edema, palpitations, syncope or presyncope. He is adamant to go home immediately and has repeatedly declined further inpatient work-up. Cardiology was consulted, he underwent a TTE (results pending), and he was started on metoprolol/Eliquis prior to discharge. He was advised to follow up with his PCP and Cardiology within 1-2 weeks of discharge. - Additional Information Resuscitation Status: Full Code Discharge Diet: Cardiac Discharge Activity: Activity As Tolerated Referrals: KENJI SANTANA MD [ACTIVE STAFF] - 02/01/20 3:15 pm SINA ARELLANO MD [Primary Care Provider] - 02/01/20 10:45 am KYLEE BARON MD [ACTIVE PROVISIONAL STAFF] - (sticker in book) Prescriptions: Apixaban [Eliquis 5 mg Tablet] 5 mg PO BID #60 tablet Metoprolol Tartrate [Lopressor 50 mg Tablet] 50 mg PO BID #60 tablet Home Medications: Hydromorphone HCl [Dilaudid] 8 mg PO Q6HP PRN 09/16/17 Tamsulosin HCl [Flomax 0.4 mg Cap.sr] 0.4 mg PO QHS 09/16/17 Apixaban [Eliquis 5 mg Tablet] 5 mg PO BID #60 tablet 01/20/20 Cetirizine HCl [Zyrtec 10 mg Tablet] 10 mg PO DAILY 01/20/20 Fentanyl [Duragesic 75 Mcg/Hr Transdermal Patch] 1 each TD Q3D 01/20/20 Metoprolol Tartrate [Lopressor 50 mg Tablet] 50 mg PO BID #60 tablet 01/20/20 History of Present Illiness History of Present Illness: KRISTEN LARKIN is a 75 year old male Physical Exam Vital Signs: Temp Pulse Resp BP Pulse Ox 98.3 F 52 L 18 123/91 H 96 01/20/20 18:25 01/20/20 18:25 01/20/20 18:25 01/20/20 18:25 01/20/20 18:25 Intake & Output 01/19/20 01/20/20 01/21/20 06:59 06:59 06:59 Intake Total 372 819 Output Total 0 540 Balance 372 279 Weight 84.5 kg Results Laboratory Results: WBC 7.9 10^3/uL (4.0-10.5) 01/20/20 04:47 RBC 3.98 10^6/uL (4.35-5.55) L 01/20/20 04:47 Hgb 12.5 g/dL (13.5-17.0) L 01/20/20 04:47 Hct 36.0 % (37.9-51.0) L 01/20/20 04:47 MCV 91 fl (80-97) 01/20/20 04:47 MCH 31.5 pg (27.0-33.4) 01/20/20 04:47 MCHC 34.8 g/dL (32.0-36.0) 01/20/20 04:47 RDW 13.4 % (11.5-14.0) 01/20/20 04:47 Plt Count 167 10^3/uL (150-450) 01/20/20 04:47 Lymph % (Auto) 32.1 % (13-45) 01/20/20 04:47 [place] % (Auto) 8.6 % (3-13) 01/20/20 04:47 Eos % (Auto) 1.5 % (0-6) 01/20/20 04:47 Baso % (Auto) 0.4 % (0-2) 01/20/20 04:47 Absolute Neuts (auto) 4.5 10^3/uL (1.7-8.2) 01/20/20 04:47 Absolute Lymphs (auto) 2.5 10^3/uL (0.5-4.7) 01/20/20 04:47 Absolute Monos (auto) 0.7 10^3/uL (0.1-1.4) 01/20/20 04:47 Absolute Eos (auto) 0.1 10^3/uL (0.0-0.6) 01/20/20 04:47 Absolute Basos (auto) 0.0 10^3/uL (0.0-0.2) 01/20/20 04:47 Seg Neutrophils % 57.4 % (42-78) 01/20/20 04:47 PT 13.2 SEC (11.4-15.4) 01/19/20 19:31 INR 0.98 01/19/20 19:31 APTT 32.6 SEC (23.5-35.8) 01/19/20 19:31 Sodium 141.2 mmol/L (137-145) 01/20/20 04:47 Potassium 3.9 mmol/L (3.6-5.0) 01/20/20 04:47 Chloride 108 mmol/L (98-107) H 01/20/20 04:47 Carbon Dioxide 25 mmol/L (22-30) 01/20/20 04:47 Anion Gap 8 (5-19) 01/20/20 04:47 BUN 18 mg/dL (7-20) 01/20/20 04:47 Creatinine 1.12 mg/dL (0.52-1.25) 01/20/20 04:47 Est GFR ( Amer) > 60 (>60) 01/20/20 04:47 Est GFR (MDRD) Non-Af > 60 (>60) 01/20/20 04:47 Glucose 99 mg/dL (75-110) 01/20/20 04:47 Calcium 8.8 mg/dL (8.4-10.2) 01/20/20 04:47 Magnesium 2.3 mg/dL (1.6-2.3) 01/19/20 19:31 Total Bilirubin 0.6 mg/dL (0.2-1.3) 01/20/20 04:47 Direct Bilirubin 0.2 mg/dL (0.0-0.4) 01/20/20 04:47 Neonat Total Bilirubin Not Reportable 01/20/20 04:47 Neonat Direct Bilirubin Not Reportable 01/20/20 04:47 Neonat Indirect Bili Not Reportable 01/20/20 04:47 AST 24 U/L (17-59) 01/20/20 04:47 ALT 13 U/L (<50) 01/20/20 04:47 Alkaline Phosphatase 50 U/L (38-126) 01/20/20 04:47 Troponin I < 0.012 ng/mL 01/20/20 01:30 NT-Pro-B Natriuret Pep 2390 pg/mL (<450) H 01/19/20 19:31 Total Protein 5.9 g/dL (6.3-8.2) L 01/20/20 04:47 Albumin 3.5 g/dL (3.5-5.0) 01/20/20 04:47 TSH 0.77 uIU/mL (0.47-4.68) 01/19/20 19:31 Urine Color YELLOW 01/20/20 16:02 Urine Appearance CLEAR 01/20/20 16:02 Urine pH 7.0 (5.0-9.0) 01/20/20 16:02 Ur Specific [place] 1.016 01/20/20 16:02 Urine Protein NEGATIVE mg/dL (NEGATIVE) 01/20/20 16:02 Urine Glucose (UA) NEGATIVE mg/dL (NEGATIVE) 01/20/20 16:02 Urine Ketones NEGATIVE mg/dL (NEGATIVE) 01/20/20 16:02 Urine Blood NEGATIVE (NEGATIVE) 01/20/20 16:02 Urine Nitrite NEGATIVE (NEGATIVE) 01/20/20 16:02 Urine Bilirubin NEGATIVE (NEGATIVE) 01/20/20 16:02 Urine Urobilinogen NEGATIVE mg/dL (<2.0) 01/20/20 16:02 Ur Leukocyte Esterase NEGATIVE (NEGATIVE) 01/20/20 16:02 Urine WBC (Auto) 0 /HPF 01/20/20 16:02 Urine RBC (Auto) 0 /HPF 01/20/20 16:02 Squamous Epi Cells Auto <1 /HPF 01/20/20 16:02 Urine Mucus (Auto) RARE /LPF 01/20/20 16:02 Urine Ascorbic Acid NEGATIVE (NEGATIVE) 01/20/20 16:02 Serum Alcohol < 10 mg/dL (NONE DETECTED) 01/19/20 19:31 01/19/20 01/20/20 19:31 01:30 Troponin I < 0.012 < 0.012 NT-Pro-B Natriuret Pep 2390 H Impressions: Chest X-Ray 01/19/20 18:40 IMPRESSION: NO ACUTE FINDINGS. Renal Ultrasound 01/20/20 00:00 IMPRESSION: CHRONIC MEDICAL RENAL DISEASE. NO HYDRONEPHROSIS. Stroke Is this a Stroke Patient?: No Acute Heart Failure Is this a Heart Failure Patient?: No
--- NOTE | 2020-01-22 22:27 | XCELERA REPORT ---
[address] [address] Transthoracic Echocardiogram Report Name: KRISTEN LARKIN Age: 75 yrs Gender: Male : 1945 Patient Status: Inpatient Patient Location: [address] [place], [place] [address] Study Date: 01/20/2020 08:26 AM Height: 71 in Weight: 186 lb BSA: 2.0 m2 Procedure: A two-dimensional transthoracic echocardiogram with color flow and Doppler was performed. The study was technically limited with all images being suboptimal in quality. Reason For Study: new onset flutter History: new onset flutter. Ordering Physician: GREGOR MINAYA Performed By: Carlie Rogers Interpretation Summary The left ventricle is normal in size, thickness and function. There is normal left ventricular wall thickness. Left ventricular systolic function is normal. LV EF is 65% Doppler measurements suggest normal left ventricular diastolic function The left ventricular wall motion is normal. There is no thrombus. Probably no ASD,VSD,or PFO seen. The right ventricle is not well visualized secondary to technical limitations Suspect RV enlargement ,with mild RVH,and probably mild to moderate RVEF reduction. Right atrium not well visualized secondary to technical limitations The left atrial size is normal. There is no evidence of mitral valve prolapse. There is no vegetation seen on the mitral valve. There is no mitral valve stenosis. There is a trace amount of mitral regurgitation There is no aortic valvular vegetation. There is no aortic valve stenosis There is aortic sclerosis without aortic stenosis. No aortic regurgitation is present. There is no tricuspid stenosis. There is a trace amount of tricuspid regurgitation Upper normal to mild pulmonary hypertension.RVSP is 37 to 32 mm of Hg , with RA mean of 5 to 10. The pulmonic valve is not well visualized. The aortic root is not well visualized. The inferior vena cava appeared normal and decreased > 50% with respiration (RAP 5-10 mmHg) There is no pericardial effusion. MMode/2D Measurements & Calculations RVDd: 2.4 cm LVIDd: 4.7 cm FS: 35.4 % Ao root diam: 2.8 cm IVSd: 1.1 cm LVIDs: 3.0 cm EDV(Teich): 100.4 ml Ao root area: 6.2 cm2 LVPWd: 1.0 cm ESV(Teich): 35.3 ml EF(Teich): 64.8 % Doppler Measurements & Calculations MV E max silas: MV dec slope: Ao V2 max: LV V1 max P.6 cm/sec 455.8 cm/sec2 104.0 cm/sec 3.1 mmHg MV A max silas: MV dec time: 0.21 secAo max PG: LV V1 max: 58.2 cm/sec 4.3 mmHg 88.3 cm/sec MV E/A: 1.6 PA V2 max: TR max silas: 61.6 cm/sec 233.3 cm/sec PA max P.5 mmHg TR max P.1 mmHg Left Ventricle The left ventricle is normal in size, thickness and function. There is normal left ventricular wall thickness. Left ventricular systolic function is normal. LV EF is 65%. Doppler measurements suggest normal left ventricular diastolic function. The left ventricular wall motion is normal. There is no thrombus. Probably no ASD,VSD,or PFO seen. Right Ventricle The right ventricle is not well visualized secondary to technical limitations. Suspect RV enlargement ,with mild RVH,and probably mild to moderate RVEF reduction. Atria Right atrium not well visualized secondary to technical limitations. The left atrial size is normal. Mitral Valve There is no evidence of mitral valve prolapse. There is no vegetation seen on the mitral valve. There is no mitral valve stenosis. There is a trace amount of mitral regurgitation. Aortic Valve There is no aortic valvular vegetation. There is no aortic valve stenosis. There is aortic sclerosis without aortic stenosis. No aortic regurgitation is present. Tricuspid Valve There is no tricuspid stenosis. There is a trace amount of tricuspid regurgitation. Upper normal to mild pulmonary hypertension.RVSP is 37 to 32 mm of Hg , with RA mean of 5 to 10. Pulmonic Valve The pulmonic valve is not well visualized. Great Vessels The aortic root is not well visualized. The inferior vena cava appeared normal and decreased > 50% with respiration (RAP 5-10 mmHg). Effusions There is no pericardial effusion. : GREGOR MINAYA Lakshmi
== END 2020-01-20 18:40 | disposition home or self-care (01) ==
LOC: ER 17:49 → EH 21:11 → 3S 23:45
PROVIDERS: ADMIT Internal Medicine; ATTEND Hospitalist
DX: I48.0 Paroxysmal atrial fibrillation (principal); C90.01 Multiple myeloma in remission; N40.0 Benign prostatic hyperplasia without lower urinary tract symptoms; R79.89 Other specified abnormal findings of blood chemistry; R07.9 Chest pain, unspecified; R53.1 Weakness; R53.83 Other fatigue; R63.0 Anorexia; N18.9 Chronic kidney disease, unspecified; F17.290 Nicotine dependence, other tobacco product, uncomplicated; Z88.1 Allergy status to other antibiotic agents; J44.9 Chronic obstructive pulmonary disease, unspecified; Z79.899 Other long term (current) drug therapy; Z88.0 Allergy status to penicillin; R60.0 Localized edema; Z79.82 Long term (current) use of aspirin
CPT/HCPCS: 93005; 99291; 96374; 36415 ×2; 87086; 80307; 83735; 84443; 85025 ×2; 85610; 85730; 80053 ×2; 81001; 84484 ×2; 83880; 93306; 71045; 76770; 93010; G0378 ×3; A9270 ×5; J3490 ×2

== ENCOUNTER → 2020-02-29 | Outpatient (CLI) | payer MEDICARE, BC ==
[2020-02-29 15:36] LABS: ABSOLUTE EOSINOPHILS # (AUTO) 0.1 10^3/uL (0.0-0.6); ABSOLUTE LYMPHOCYTES (AUTO) 1.6 10^3/uL (0.5-4.7); ABSOLUTE MONOCYTES (AUTO) 0.4 10^3/uL (0.1-1.4); ABSOLUTE NEUT (AUTO) 4.7 10^3/uL (1.7-8.2); BASOPHILS % (AUTO) 0.1 % (0-2); EOSINOPHILS % (AUTO) 1.7 % (0-6); HEMATOCRIT 35.1 % (37.9-51.0); HEMOGLOBIN 11.8 g/dL (13.5-17.0); LYMPHOCYTES % (AUTO) 23.2 % (13-45); MEAN CORPUSCULAR HEMOGLOBIN 30.8 pg (27.0-33.4); MEAN CORPUSCULAR HGB CONC 33.7 g/dL (32.0-36.0); MEAN CORPUSCULAR VOLUME 91 fl (80-97); PLATELET COUNT 156 10^3/uL (150-450); RED BLOOD COUNT 3.84 10^6/uL (4.35-5.55); RED CELL DISTRIBUTION WIDTH 13.1 % (11.5-14.0); TOTAL CELLS COUNTED % (AUTO) 100 %; WHITE BLOOD COUNT 6.9 10^3/uL (4.0-10.5)
[2020-02-29 16:07] LABS: ALBUMIN 3.8 g/dL (3.5-5.0); ALKALINE PHOSPHATASE 58 U/L (38-126); ANION GAP 7 (5-19); ASPARTATE AMINO TRANSFERASE 22 U/L (17-59); BILIRUBIN,DIRECT 0.1 mg/dL (0.0-0.4); BILIRUBIN,TOTAL 0.4 mg/dL (0.2-1.3); BLOOD UREA NITROGEN 19 mg/dL (7-20); CALCIUM 8.9 mg/dL (8.4-10.2); CARBON DIOXIDE 26 mmol/L (22-30); CHLORIDE 105 mmol/L (98-107); GLUCOSE 88 mg/dL (75-110); POTASSIUM 4.9 mmol/L (3.6-5.0); TOTAL PROTEIN 6.4 g/dL (6.3-8.2)
[2020-02-29 16:09] LABS: C-REACTIVE PROTEIN < 5.0 mg/L (<10.0)
[2020-02-29 16:20] LABS: ERYTHROCYTE SEDIMENTATION RATE 12 mm/hr (0-20)
== END ==
LOC: WC 13:52
PROVIDERS: ATTEND Nurse Practitioner Family
DX: L97.512 Non-pressure chronic ulcer of other part of right foot with fat layer exposed (principal)
CPT/HCPCS: 36415; 80053; 85025; 85652; 86140

== ENCOUNTER 2020-04-28 14:38 | Emergency (ER) | payer MEDICARE, BC ==
--- NOTE | 2020-04-28 16:04 | RADIOLOGY REPORT (SQ) ---
EXAM DESCRIPTION: CHEST SINGLE VIEW IMAGES COMPLETED DATE/TIME: 04/28/2020 3:53 pm REASON FOR STUDY: cp COMPARISON: 01/19/2020 EXAM PARAMETERS: NUMBER OF VIEWS: One view. TECHNIQUE: Single frontal radiographic view of the chest acquired. RADIATION DOSE: NA LIMITATIONS: None. FINDINGS: LUNGS AND PLEURA: No new airspace disease, pleural effusion or pneumothorax. Biapical sca rring, stable. MEDIASTINUM AND HILAR STRUCTURES: No masses. Contour normal. HEART AND VASCULAR STRUCTURES: Heart normal in size. Vascular calcifications. BONES: No acute bony abnormality. Chronic bilateral rib fractures. HARDWARE: None in the chest. OTHER: No other significant finding. IMPRESSION: No evidence of acute intrathoracic process. TECHNICAL DOCUMENTATION: JOB ID: [id number] 2010 [employer]- All Rights Reserved Reading location - IP/workstation name: [email or web address]
[2020-04-28 16:12] LABS: ABSOLUTE EOSINOPHILS # (AUTO) 0.2 10^3/uL (0.0-0.6); ABSOLUTE MONOCYTES (AUTO) 0.6 10^3/uL (0.1-1.4); ABSOLUTE NEUT (AUTO) 6.3 10^3/uL (1.7-8.2); BASOPHILS % (AUTO) 0.3 % (0-2); EOSINOPHILS % (AUTO) 1.7 % (0-6); HEMATOCRIT 36.6 % (37.9-51.0); HEMOGLOBIN 12.6 g/dL (13.5-17.0); LYMPHOCYTES % (AUTO) 21.8 % (13-45); MEAN CORPUSCULAR HEMOGLOBIN 30.8 pg (27.0-33.4); MEAN CORPUSCULAR HGB CONC 34.5 g/dL (32.0-36.0); MEAN CORPUSCULAR VOLUME 89 fl (80-97); MONOCYTES % (AUTO) 6.6 % (3-13); PLATELET COUNT 177 10^3/uL (150-450); RED BLOOD COUNT 4.09 10^6/uL (4.35-5.55); RED CELL DISTRIBUTION WIDTH 13.3 % (11.5-14.0); SEGMENTED NEUTROPHILS % (AUTO) 69.6 % (42-78); TOTAL CELLS COUNTED % (AUTO) 100 %; WHITE BLOOD COUNT 9.1 10^3/uL (4.0-10.5)
[2020-04-28] MEDS ORDERED: METOPROLOL TARTRATE PF/INJ 5 MG/5 ML SDV IV ONE (16:42)
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
[2020-04-28 16:52] LABS: ALKALINE PHOSPHATASE 56 U/L (38-126); ANION GAP 5 (5-19); ASPARTATE AMINO TRANSFERASE 30 U/L (17-59); BILIRUBIN,DIRECT 0.2 mg/dL (0.0-0.4); BILIRUBIN,TOTAL 0.4 mg/dL (0.2-1.3); BLOOD UREA NITROGEN 16 mg/dL (7-20); CALCIUM 8.9 mg/dL (8.4-10.2); CARBON DIOXIDE 27 mmol/L (22-30); CHLORIDE 108 mmol/L (98-107); CREATINE KINASE 120 U/L (55-170); GLUCOSE 76 mg/dL (75-110); POTASSIUM 4.2 mmol/L (3.6-5.0)
[2020-04-28 17:00] LABS: CREATINE KINASE MB 1.26 ng/mL (<4.55)
[2020-04-28 17:04] LABS: TROPONIN I < 0.012 ng/mL
[2020-04-28] MEDS ORDERED: METOPROLOL SUCCINATE 25 MG TAB.SR.24H PO ONE (17:36)
--- NOTE | 2020-04-28 19:34 | EKG REPORT ---
SEVERITY:- ABNORMAL ECG - ATRIAL FIBRILLATION, V-RATE 93-163 VENTRICULAR PREMATURE COMPLEX LOW VOLTAGE THROUGHOUT PROBABLE POSTERIOR INFARCT : Confirmed by: Jaky Sethi MD 28-Apr-2020 19:33:08
[2020-04-28 20:38] VITALS: BP 118/79
== END 2020-04-28 20:35 | disposition home or self-care (01) ==
LOC: ER 14:38
DX: I48.0 Paroxysmal atrial fibrillation (principal); C90.00 Multiple myeloma not having achieved remission; Z79.82 Long term (current) use of aspirin
CPT/HCPCS: 93005; 99285; 96374; 36415; 82553; 82550; 84443; 85025; 80053; 84484; 71045; 93010; J3490; A9270

== ENCOUNTER → 2020-05-03 | Outpatient (CLI) | payer MEDICARE, BC ==
--- NOTE | 2020-05-03 15:10 | RADIOLOGY REPORT (SQ) ---
EXAM DESCRIPTION: MRI LT LOWER JOINT COMBO IMAGES COMPLETED DATE/TIME: 05/03/2020 10:05 am COMPARISON: PET CT, 06/29/2019. Nuclear medicine bone scan same date. CONTRAST TYPE AND DOSE: 15 mL ProHance RENAL FUNCTION: GFR > 60. REASON FOR STUDY: MULTIPLE MYELOMA IN RELAPSE C90.02 MULTIPLE MYELOMA IN RELAPS. Left hip pain wit h pain wall walking, decreased range of motion, giving out and weakness. History of multiple myeloma . E TECHNIQUE: Left hip images acquired and stored on PACS. Multiplanar images include fat sensitive se quences as T1, water sensitive sequences as FST2 or STIR, and postcontrast images in coronal, axial a nd sagittal planes. FINDINGS: Bones: There is a round intramedullary lesion in the left femoral neck measuring 3.3 x 2. 1 by 3.2 cm. This demonstrates cortical breakthrough along the anterior cortex of the femoral neck, with homogeneous hypointense T1 signal, hyperintense T2 signal, and fairly homogeneous enhancement. There is a soft tissue component extending from the intramedullary portion through the cortex into th e periosteal region with associated enhancement. On full field images, there is a similar T1 hypoint ense lesion in the intramedullary bone marrow of the right femoral shaft (series 3, image 16 and seri es 4, image 16). No other suspicious bone lesions. Joint space: There is joint space narrowing with small marginal osteophytes at the left femoroacetabu lar joint. Loss of normal articular cartilage signal. No joint effusion. No underlying bone marrow signal abnormality in the femoral head or acetabulum. Soft tissues: Well-circumscribed T1 hypointense lesion in the left inguinal region measures 2.7 cm, with hypointense T1 and hyperintense T2 signal and no contrast enhancement. This corresponds with a non metabolic lesion on previous PET scan. This may represent a postoperative seroma or subcutaneous cyst. Normal signal and appearance of the muscles and subcutaneous soft tissues. Other: Prostate has normal size. Urinary bladder has normal contour. No pelvic adenopathy or free fluid. No evidence of bowel obstruction. IMPRESSION: 1. Intramedullary osseous lesion in the proximal left femoral neck with cortical breakthrough at the anterior margin of the femoral neck, consistent with multiple myeloma or possibly metastatic disease. This is at risk for pathologic fracture. 2. Similar-appearing lesion in the intramedullary right femoral shaft. TECHNICAL DOCUMENTATION: JOB ID: [id number] 2010 [employer]- All Rights Reserved Reading location - IP/workstation name: [email or web address]
--- NOTE | 2020-05-03 15:40 | RADIOLOGY REPORT (SQ) ---
EXAM DESCRIPTION: NM WHOLE BODY BONE SCAN IMAGES COMPLETED DATE/TIME: 05/03/2020 1:41 pm REASON FOR STUDY: MULTIPLE MYELOMA IN RELAPSE C90.02 MULTIPLE MYELOMA IN RELAPSE COMPARISON: PET-CT imaging dated 06/29/2019 and bone scan dated 03/02/2018 RADIONUCLIDE AND DOSE: 20.9 millicuries Tc99m MDP. The route of agent administration: Intravenous. ADDITIONAL DRUGS AND DOSES: None. TECHNIQUE: Routine delayed images at 3 hour post radionuclide injection acquired of the bony skeleto n including anterior and posterior whole-body projections and additional focused images as needed. LIMITATIONS: None. FINDINGS: BONES: Re- demonstration of areas of focal uptake involving the right ribs 9, 10, 11 and l eft ribs 7 and 8. Robust uptake in the region of the right sternomanubrial joint correlates to dystr ophic calcifications/degenerative changes demonstrated on comparison PET-CT and is similar to that se en on previous bone scan. Re- demonstration of uptake at the scapular tips (right greater than left) likely representing overlapping structures. Amorphous uptake in the region of the right glenohumera l joint appears to correlate to mildly asymmetric soft tissue uptake on PET-CT imaging without focal activity or mass. Heterogeneous uptake is seen of the calvarium, consistent with known disease. Add itional finding is seen of the bilateral patellae, likely degenerative in nature. KIDNEYS: Symmetric excretion without obstruction. OTHER: No other significant finding. IMPRESSION: Stable, persistent areas of increased activity. No new findings. COMMENT: Quality measure 147: Current bone scan is compared with any available plain radiographs, p rior bone scans, and CT/MRI. TECHNICAL DOCUMENTATION: JOB ID: [id number] 2010 [employer]- All Rights Reserved Reading location - IP/workstation name: [email or web address]
== END ==
LOC: RAD 09:28
PROVIDERS: ATTEND Physician Assistant Medical
DX: C90.02 Multiple myeloma in relapse (principal)
CPT/HCPCS: 73723; 78306; A9576; A9503; Q9969

== ENCOUNTER → 2020-05-09 | Outpatient (CLI) | payer MEDICARE, BC ==
--- NOTE | 2020-05-10 16:19 | RADIOLOGY REPORT (SQ) ---
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 TECHNIQUE: Blood glucose level was verified. Above dose of FDG was injected intravenously. 2-D seg mented attenuation correction images were obtained through the entire body. Noncontrast CT images we re obtained for attenuation correction and fusion with emission images. CT images were performed wit hout oral or intravenous contrast and are not sensitive for parenchymal lesions. A series of overlap ping emission PET images were obtained. Images reviewed and manipulated at independent work station by the radiologist. Images stored on PACS. LIMITATIONS: None. FINDINGS: HEAD AND NECK: No areas of abnormal metabolic activity in the soft tissues of the head and neck. CHEST: No areas of abnormal metabolic activity in the chest. ABDOMEN AND PELVIS: No areas of abnormal metabolic activity in the abdomen or pelvis. Expected physi ologic activity is present in the genitourinary system and bowel. LOWER EXTREMITIES: No areas of abnormal metabolic activity in the soft tissues of the lower extremiti es. BONES: No abnormal metabolic activity in the visualized skeleton. ADDITIONAL CT FINDINGS: Stable subcentimeter lucencies in the pelvis and spine. 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 Obstructive lung disease. OTHER: No other significant findings. IMPRESSION: No hypermetabolic lesions. No significant change. TECHNICAL DOCUMENTATION: JOB ID: [id number] [employer]- All Rights Reserved Reading location - IP/workstation name: [email or web address]
== END ==
LOC: RAD 12:07
PROVIDERS: ATTEND Internal Medicine
DX: C90.02 Multiple myeloma in relapse (principal)
CPT/HCPCS: 78816; A9552